=== PATIENT | female | born 1935 | race Caucasian/White ===

== ENCOUNTER 2019-10-30 13:08 | Inpatient (IN) | payer MEDICARE, SELFPAY ==
[2019-10-30 13:15] VITALS: BP 148/71; PULSE 84; RESP 18; TEMP 36.8; O2SAT 94
--- NOTE | 2019-10-30 13:30 | ECG_ITS ---
Measurements Intervals [place] Rate: 88 P: 56 IN: 188 QRS: -27 QRSD: 150 T: 43 QT: 386 QTc: 469 SINUS RHYTHM RIGHT BUNDLE BRANCH BLOCK [120+ ms QRS DURATION, UPRIGHT V1, 40+ ms S IN I/aVL/V4/V5/V6] Compared to ECG 10/30/2019 13:57:45 First degree AV block no longer present Left-axis deviation no longer present Myocardial infarct finding still present Electronically Signed On 11-01-2019 18:21:31 CDT by Millie Sanchez M.D. [id number]
--- NOTE | 2019-10-30 13:40 | CT_ITS ---
WS: [id number] CT HEAD TECHNIQUE: Noncontrast CT of the head obtained from the skullbase to the vertex. CLINICAL INFORMATION: left leg weakness COMPARISON: None. DLP: 764.[address] scans at [facility] use at least one of these dose optimization techniques: automat ed exposure control; mA and/or kV adjustment per patient size (includes targeted exams where dose is matched to clinical indication); or iterative reconstruction. FINDINGS: No evidence of intracranial hemorrhage or mass effect. Ventricular system and basal cisterns are bhagat nt. Mild small vessel changes with moderate parenchymal volume loss. Tiny chronic lacunar infarcts ri ght basal ganglia and caudate. No extra-axial fluid collections. No evidence of mass or mass effect. Normal dove-white differentiation. Paranasal sinuses and mastoid air cells are well aerated. .Normal. Visualized soft tissues. Notified Adriana Dickson MD at 10/30/2019 2:[address]/CT head wo con* [id number] IMPRESSION: 1. No evidence of intracranial hemorrhage or mass effect. 2. Mild small vessel changes. Moderate parenchymal volume loss. 3. Chronic lacunar infarcts right basal ganglia and caudate. 4. No acute intracranial findings.
[2019-10-30 13:52] LABS: Basophils # 0.1 10^3/uL (0.0-0.1); Basophils % 0.7 %; Eosinophils # 1.5 10^3/uL (0.0-0.8); Eosinophils % 11.5 %; Hematocrit 41.9 % (37.0-47.0); Hemoglobin 13.1 g/dL (11.5-15.3); Lymphocytes # 1.5 10^3/uL (0.8-4.8); Lymphocytes % 11.2 %; Mean Corpuscular HGB Conc 31.3 g/dL (30.0-36.0); Mean Corpuscular Hemoglobin 28.9 pg (28.0-34.0); Mean Corpuscular Volume 92.5 fL (81-99); Mean Platelet Volume 9.4 fL (7.4-10.4); Monocytes % 7.4 %; Neutrophils # 9.2 10^3/uL (1.8-7.7); Neutrophils % 68.9 %; Nucleated Red Blood Cells % 0 %; Platelet Count 344 10^3/cmm (130-400); Red Blood Count 4.53 10^6/uL (4.1-5.3); White Blood Count 13.4 10^3/uL (4.0-10.0)
--- NOTE | 2019-10-30 13:55 | ED_ITS ---
HPI - Weakness General: Chief complaint: Weakness Stated complaint: WEAKNESS / PANIC ATTACK Time Seen by Provider: 10/30/19 13:10 History of Present Illness: HPI Narrative: Patient is an 84 year old female presenting with difficulty walking. She reports that when she got out of bed yesterday morning she was not able to control her legs. She normal gets around without assistance but has been using a walker. She talked to her doctor yesterday and was sent to the ED at [place]. She had a CT there and she says that there wanted her to come right here for an MRI. It isn't clear why they recommended that and why she didn't come. She is still having a hard time walking and is very confused when trying to tell me the story. She is apparently normally very clear and not confused. She denies history of stroke. She is on antibiotics (nitrofuratoin) for a UTI that was diagnosed on the of this month. Complaint: generalized weakness, focal weakness and difficulty walking Onset (ago): day(s) (2) Duration: constant Location: LLE Severity: moderate Associated symptoms: Reports confusion; Denies chest pain, chills, fever(s), headache(s) or nausea Review of Systems General: Reports: 10 or more systems reviewed and unremarkable except in HPI and below Const: Denies: fever(s) or chills Card: Denies: chest pain GI: Denies: nausea Neuro: Reports: weakness in extremities, lack of coordination, difficulty walking, confusion and difficulty communicating thoughts; Denies: headache(s) [facility] ED PFSH: Medical History (Updated 10/30/19 @ 19:16 by Romi Ag MD) Anxiety disorder GERD (gastroesophageal reflux disease) HTN (hypertension) Hypothyroidism Osteoarthritis Surgical History H/O laminectomy H/O: hysterectomy History of appendectomy S/P left knee arthroscopy Family History (Updated 10/30/19 @ 18:52 by Romi Ag MD) Son Alcohol abuse Psychiatric illness Bipolar disorder Mother Cancer Social History (Updated 10/30/19 @ 18:53 by Romi Ag MD) Smoking and tobacco status: former smoker Quit status (tobacco): has quit using tobacco Former quit date comment: Remote history Alcohol intake: never Substance/Drug Use: never Household members: spouse Marital status: Current occupational status: retired Physical Exam Const: COMMON NORMALS: no acute distress, patient oriented x3, no limitations and alert GENERAL APPEARANCE: cooperative and comfortable HENMT: HEAD & SCALP: normal to inspection FACE & SINUS: normal facial exam Eye: GENERAL EYE: appearance normal, both eyes and all related structures Neck/C-Spine: COMMON NORMALS: supple, no meningeal signs and no JVD Chest: COMMONS NORMALS: normal inspection of the chest Resp: COMMON NORMALS: normal respiratory effort, No use of accessory muscles and clear to auscultation bilaterally AUSCULTATION: clear to auscultation bilaterally Cardio: COMMON NORMALS: no JVD, regular rate, regular rhythm and No murmurs present (Cardio) RATE: regular rate RHYTHM: regular rhythm GI: COMMON NORMALS: Normal to inspection, nondistended, normoactive bowel sounds present, Soft to palpation and non-tender INSPECTION: Yes normal to inspection AUSCULTATION: Yes normoactive bowel sounds PALPATION: Yes Soft to palpation Back/Pelvis: COMMON NORMALS: thoracic and lumbar spine normal to inspection Extremity: COMMON NORMALS: normal to inspection Neuro: COMMON NORMALS: patient oriented x3, moves all extremities, no focal motor deficits and no sensory deficits noted SENSORIUM/ORIENTATION: Yes alert and Yes other (having trouble organizing her thoughts) MENINGEAL SIGNS: Yes no meningeal signs CRANIAL NERVES: Yes CN normal except as noted COORDINATION/BALANCE: [id number] test normal (hesitation on the left - mild ataxia) GAIT: Yes Unable to assess gait SENSORY EXAM: Yes extremities (normal sensation) and Normal double simultaneous stimulation for sensation MOTOR EXAM: Abnormal motor strength present (3/5 strength LLE, 4/5 LUE) COORDINATION: [id number] test normal (hesitation on the left - mild ataxia) Psych: COMMON NORMALS: mental status grossly normal, cooperative and normal affect Skin: COMMON NORMALS: no rashes or lesions noted and turgor normal GENERAL SKIN EXAM: no rashes or lesions noted and turgor normal Course 2 ED course: Patient with difficulty walking, left leg weakness and some ataxia of the left upper extremity as well as slight weakness. She had an unremarkable CT head yesterday at [facility] in [place] and another here today. Labs are unremarkable other than a slightly elevated calcium and ESR. She is on antibiotics for UTI - urine is clear today with +1 ketones. She also has some confusion which is not normal for her according to those who know her. She says that she has panic attacks and felt very anxious in the ED and she was given a dose or oral ativan. She takes clonazepam at home. She is agreeable to being admitted. I don't think she should go home given her difficulty walking and unexplained confusion. Reevaluation(s): Reevaluation #1: I assisted the patient to the bathroom with the nurse and a walker. She was unsteady and her left leg was weak - she was not able to pick her foot up and was dragging it slightly, she she was able to hold her weight on it. Time: 14:49 Consultations: Consultation #1: Hospitalist, Dr. Ag who agrees to admit for PT evaluation and treatment. Vital Signs: Vital signs: Vital Signs Temperature 97.6 F 10/30/19 20:00 Pulse Rate 93 10/30/19 20:00 Respiratory Rate 18 10/30/19 20:00 Blood Pressure 133/78 10/30/19 20:00 Pulse Oximetry 98 10/30/19 20:00 MDM - Weakness Lab Data: Labs: Lab Results 10/30/19 10/30/19 10/30/19 Range/Units 13:37 13:37 13:37 WBC 13.4 H (4.0-10.0) 10^3/ uL RBC 4.53 (4.1-5.3) 10^6/u L Hgb 13.1 (11.5-15.3) g/dL Hct 41.9 (37.0-47.0) % MCV 92.5 (81-99) fL MCH 28.9 (28.0-34.0) pg MCHC 31.3 (30.0-36.0) g/dL RDW 12.0 L (12.1-15.1) % Plt Count 344 (130-400) 10^3/c mm MPV 9.4 (7.4-10.4) fL Neut % (Auto) 68.9 % Lymph % (Auto) 11.2 % Weld % (Auto) 7.4 % Eos % (Auto) 11.5 % Baso % (Auto) 0.7 % Neut # (Auto) 9.2 H (1.8-7.7) 10^3/u L Lymph # (Auto) 1.5 (0.8-4.8) 10^3/u L Weld # (Auto) 1.0 H (0.2-0.9) 10^3/u L Eos # (Auto) 1.5 H (0.0-0.8) 10^3/u L Baso # (Auto) 0.1 (0.0-0.1) 10^3/u L Nucleated RBC % (a uto) 0 % Nucleated RBCs # 0.0 /100WBC ESR 45 H (0-15) mm/hr Sodium 142 (136-145) mmol/L Potassium 3.9 (3.5-5.1) mmol/L Chloride 105 (98-107) mmol/L Carbon Dioxide 23 (22-29) mmol/L Anion Gap 17.9 (5-19) BUN 10 (8-23) mg/dL Creatinine 0.7 (0.5-0.9) mg/dL Glucose 118 H (65-115) mg/dL Calculated Osmolal ity 291 (285-295) mOsm/k g Calcium 11.2 H (8.5-10.5) mg/dL Total Bilirubin 0.3 (0.15-1.2) mg/dL AST 20 (0-32) U/L ALT 13 (0-33) U/L Alkaline Phosphata se 86 (35-105) IU/L Troponin T Baselin e (0-10) ng/mL Total Protein 7.3 (6.6-8.7) g/dL Albumin 4.1 (3.5-5.2) g/dL Globulin 3.2 (1.3-4.6) g/dL Urine Color (Yellow) Urine Appearance (CLEAR) Urine pH (5-7) Ur Specific Gravit y (1.005-1.030) Urine Protein (Negative) Urine Glucose (UA) (Normal) Urine Ketones (Negative) Urine Blood (Negative) Urine Nitrate (Negative) Urine Bilirubin (NEGATIVE) Urine Urobilinogen (Negative) mg/dL Ur Leukocyte Lilly ase (Negative) 10/30/19 10/30/19 Range/Units 13:37 13:51 WBC (4.0-10.0) 10^3/ uL RBC (4.1-5.3) 10^6/u L Hgb (11.5-15.3) g/dL Hct (37.0-47.0) % MCV (81-99) fL MCH (28.0-34.0) pg MCHC (30.0-36.0) g/dL RDW (12.1-15.1) % Plt Count (130-400) 10^3/c mm MPV (7.4-10.4) fL Neut % (Auto) % Lymph % (Auto) % Weld % (Auto) % Eos % (Auto) % Baso % (Auto) % Neut # (Auto) (1.8-7.7) 10^3/u L Lymph # (Auto) (0.8-4.8) 10^3/u L Weld # (Auto) (0.2-0.9) 10^3/u L Eos # (Auto) (0.0-0.8) 10^3/u L Baso # (Auto) (0.0-0.1) 10^3/u L Nucleated RBC % (a uto) % Nucleated RBCs # /100WBC ESR (0-15) mm/hr Sodium (136-145) mmol/L Potassium (3.5-5.1) mmol/L Chloride (98-107) mmol/L Carbon Dioxide (22-29) mmol/L Anion Gap (5-19) BUN (8-23) mg/dL Creatinine (0.5-0.9) mg/dL Glucose (65-115) mg/dL Calculated Osmolal ity (285-295) mOsm/k g Calcium (8.5-10.5) mg/dL Total Bilirubin (0.15-1.2) mg/dL AST (0-32) U/L ALT (0-33) U/L Alkaline Phosphata se (35-105) IU/L Troponin T Baselin e 18 H (0-10) ng/mL Total Protein (6.6-8.7) g/dL Albumin (3.5-5.2) g/dL Globulin (1.3-4.6) g/dL Urine Color Yellow (Yellow) Urine Appearance Clear (CLEAR) Urine pH 7 (5-7) Ur Specific Gravit y 1.010 (1.005-1.030) Urine Protein Neg (Negative) Urine Glucose (UA) Norm (Normal) Urine Ketones 1+ H (Negative) Urine Blood Neg (Negative) Urine Nitrate Negative (Negative) Urine Bilirubin Neg (NEGATIVE) Urine Urobilinogen Norm (Negative) mg/dL Ur Leukocyte Lilly ase Negative (Negative) EKG Data^: EKG 1: EKG interpretation date: 10/30/19 EKG interpretation time: 14:09 Interpretation: Sinus iwth 1 degree av block. RBBB. LAD. no acute ischemic changes. Discharge Plan Discharge Admit Provider: Romi Ag Discharge Date/Time: 10/30/19 16:15 Coding Level of Care Code ED Department [employer] Fwd Exam Comprehensive
--- NOTE | 2019-10-30 13:57 | PC.NURSE ---
EKG done at 1355 and shown to ER doctor
--- NOTE | 2019-10-30 13:58 | PC.NURSE ---
Nurse did an in and out cath for UA
--- NOTE | 2019-10-30 14:03 | PC.NURSE ---
patient to ct
[2019-10-30 14:11] LABS: Alanine Aminotransferase 13 U/L (0-33); Albumin Level 4.1 g/dL (3.5-5.2); Alkaline Phosphatase 86 IU/L (35-105); Anion Gap 17.9 (5-19); Aspartate Amino Transferase 20 U/L (0-32); Blood Urea Nitrogen 10 mg/dL (8-23); Calcium 11.2 mg/dL (8.5-10.5); Carbon Dioxide 23 mmol/L (22-29); Chloride 105 mmol/L (98-107); Globulin 3.2 g/dL (1.3-4.6); Glucose 118 mg/dL (65-115); Osmolality Calculated 291 mOsm/kg (285-295); Potassium 3.9 mmol/L (3.5-5.1); Sodium 142 mmol/L (136-145); Total Bilirubin 0.3 mg/dL (0.15-1.2); Total Protein 7.3 g/dL (6.6-8.7)
[2019-10-30 14:13] LABS: Troponin(5th) Baseline 18 ng/mL (0-10)
[2019-10-30] MEDS: LORazepam 1 mg Tablet PO (14:23)
[2019-10-30 14:29] LABS: Add Urine Microscopic? NO
[2019-10-30 14:39] LABS: Urine Appearance Clear (CLEAR); Urine Color Yellow (Yellow); pH Urine 7 (5-7)
[2019-10-30 14:40] LABS: Bilirubin Urine Neg (NEGATIVE); Blood Urine Neg (Negative); Glucose Urine UA Norm (Normal); Ketones Urine 1+ (Negative); Leukocyte Esterase Urine Negative (Negative); Nitrate Urine Negative (Negative); Protein Urine Neg (Negative); Urobilinogen Urine Norm (Negative)
--- NOTE | 2019-10-30 14:55 | PC.NURSE ---
patient ambulated with walker to restroom, emd assisted
[2019-10-30 14:56] LABS: Erythrocyte Sedimentation Rate 45 mm/hr (0-15)
--- NOTE | 2019-10-30 15:30 | ECG_ITS ---
Measurements Intervals [place] Rate: 94 P: 50 PA: 196 QRS: -4 QRSD: 133 T: 37 QT: 378 QTc: 473 SINUS RHYTHM POSSIBLE LEFT ATRIAL ENLARGEMENT RIGHT BUNDLE BRANCH BLOCK INFERIOR MYOCARDIAL INFARCTION,OF INDETERMINATE AGE Compared to ECG 10/30/2019 13:57:45 First degree AV block no longer present Left-axis deviation no longer present Myocardial infarct finding still present Electronically Signed On 11-01-2019 18:45:53 CDT by Millie Sanchez M.D. [id number]
--- NOTE | 2019-10-30 16:01 | PC.NURSE ---
Sat up in bed, anxious. Nurse was at bedside. EKG done at 1555 and shown to ER doctor.
[2019-10-30 16:04] LABS: Creatine Phosphokinase 18 U/L (26-192); Troponin 5 2HR 14.63 ng/mL (0-10)
[2019-10-30 16:07] VITALS: BP 161/71; PULSE 105; RESP 18; O2SAT 95
[2019-10-30 16:30] VITALS: BP 138/79; PULSE 91; RESP 18; TEMP 37; O2SAT 96
[2019-10-30 16:33] LABS: Troponin 5 2HR Delta -3.37 ABS# (0-10)
--- NOTE | 2019-10-30 18:42 | CTR_ITS ---
PROCEDURE INFORMATION: Exam: CT Angiography Head With Contrast Exam date and time: 10/30/2019 8:25 PM Age: 84 years old Clinical indication: Cognitive deficit; Altered mental status; Additional info: CVA workup, assess posterior circulation TECHNIQUE: Imaging protocol: Computed tomography angiography of the head with intravenous contrast. 3D rendering: MIP and/or 3D reconstructed images were created by the technologist. Radiation optimization: All CT scans at this facility use at least one of these dose optimization techniques: automated exposure control; mA and/or kV adjustment per patient size (includes targeted exams where dose is matched to clinical indication); or iterative reconstruction. Contrast material: OMNI 350; Contrast volume: 95 ml; Contrast route: IV; COMPARISON: CT head wo con* [id number] 2019-10-30 14:01 FINDINGS: Anterior cerebral arteries: No occlusion or significant stenosis. No aneurysm. Right internal carotid artery: Mild cavernous and supraclinoid right internal carotid artery atherosclerotic plaque and stenosis. Right middle cerebral artery: No occlusion or significant stenosis. No aneurysm. Right posterior cerebral artery: No occlusion or significant stenosis. No aneurysm. Right vertebral artery: No occlusion or significant stenosis. No aneurysm. Left internal carotid artery: Mild cavernous and supraclinoid left internal carotid artery atherosclerotic plaque and stenosis. Left communicatingc ICA segment aneurysm or infundibulum measuring 2-3 mm on series 4, image 178. Left middle cerebral artery: No occlusion or significant stenosis. No aneurysm. Left posterior cerebral artery: Nymf-lu-wjzlzgnt left EQUIPMENT TECH stenosis. Left vertebral artery: No occlusion or significant stenosis. No aneurysm. Basilar artery: No occlusion or significant stenosis. No aneurysm. Dural sinuses/cerebral veins: The visualized deep and superficial dural venous sinuses and cortical veins are patent. The visualized deep and superficial dural venous sinuses and cortical veins are patent. Other vasculature: Small anterior communicating artery. Total DLP: 1394.21 mGy-cm IMPRESSION: 1. No acute abnormality. 2. 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 PROCEDURE INFORMATION: Exam: CT Angiography Neck With Contrast Exam date and time: 10/30/2019 8:25 PM Age: 84 years old Clinical indication: Cognitive deficit; Altered mental status; Additional info: CVA workup, assess posterior circulation TECHNIQUE: Imaging protocol: Computed tomography angiography of the neck with intravenous contrast. 3D rendering: MIP and/or 3D reconstructed images were created by the technologist. Radiation optimization: All CT scans at this facility use at least one of these dose optimization techniques: automated exposure control; mA and/or kV adjustment per patient size (includes targeted exams where dose is matched to clinical indication); or iterative reconstruction. Contrast material: OMNI 350; Contrast volume: 95 ml; Contrast route: IV; COMPARISON: CT head wo con* [id number] 2019-10-30 14:01 RADIATION DOSE METRICS: Total DLP: 1394.21 mGy-cm FINDINGS: Right common carotid artery: Mild atherosclerotic plaque in the predominately distal right common carotid artery and the bifurcation. Right internal carotid artery: No stenosis of the extracranial segment. No dissection or occlusion. Right external carotid artery: No occlusion or stenosis of the origin. Right vertebral artery: No stenosis. No dissection or occlusion. Left common carotid artery: Mild atherosclerotic plaque in the predominately distal left common carotid artery and the bifurcation. Left internal carotid artery: No stenosis of the extracranial segment. No dissection or occlusion. Left external carotid artery: No occlusion or stenosis of the origin. Left vertebral artery: No stenosis. No dissection or occlusion. Bones/joints: No acute fracture. Soft tissues: Normal. No significant soft tissue swelling. CT/CT angio headneck* [id number] IMPRESSION: No acute abnormality. REFERENCES: NASCET CRITERIA. The degree of internal carotid artery stenosis is based on NASCET criteria. Normal is no stenosis. Mild is less than 50% stenosis. Moderate is 50-69% stenosis. Severe is 70% to 99% stenosis. Total occlusion is no detectable patent lumen. Radiation Dose CTDIVOL = (mGy): DLP = 1394.21~1394.21 (mGy-cm)
--- NOTE | 2019-10-30 18:47 | P.HP_ITS ---
Providers/Chief Complaint Admitting Physician: Romi Ag MD Primary Care Provider: Rebekah Nix DO Chief Complaint: LEFT SIDED WEAKNESS History of Present Illness Mel Ferrara is a 84 year old female with PMHx of HTN, GERD, OA, Hypothyroidism, Anxiety; presents via ambulance from home for evaluation of ongoing and progressive bilateral lower extremity weakness, difficulty with ambulation for the past several days. Patient had been evaluated at [facility] ER on at least 2-3 separate occasions for these symptoms. By her report on her first ER visit she had minimal work-up and then was discharged home. As her symptoms progressed and she had a fall while returning to have bedroom from the bathroom with resulting right-sided chest wall pain she returned to the ER and was diagnosed with rib fractures. She continues to have difficulty with ambulation and worsening left lower extremity weakness with noted difficulty with word finding and intermittently slurred speech. She returned to the ER yesterday and had extensive work-up including CT head, CBC, chemistry, chest x- ray with records reviewed and in paper chart. CT head was noted to be unremarka ble, chest x-ray was reported as noted prominence in bronchovascular markings suggestive of possible fluid overload, CBC was unremarkable, she had mild creatinine elevation on her chemistry panel, BNP elevation at 771. Further neurological evaluation was recommended specifically MRI which patient opted to have as an outpatient is scheduled for tomorrow. However upon awakening today she felt much worse and her called for an ambulance to bring her to the hospital for evaluation. She states that prior to the onset of her symptoms, she had a bout of constipation which has now resolved following initiation of bowel regimen. She has underlying anxiety/depression with what she describes as panic attacks and has noticed that these have increased in frequency over the past several days. She is on clonazepam venlafaxine and quetiapine as needed. She is encountered on her arrival to the medical surgical floor. She is an appropriate historian but has progressive difficulty with word finding during my history taking , intermittent slurring of her speech, and on gait assessment has notable ataxia and seems to almost be dragging her left leg when ambulating. She makes mention of the fact that she is having difficulty inserting her dentures which she has had for about 10 years and has not had prior difficulty with this; she denies having had any episodes of difficulty swallowing, choking episodes, drooling and no prior reported facial droop. She denies any other falls as she has been able to hold onto furniture while walking around the house and over the past day or so has been using a walker; she ambulates independently at baseline. She denies any episodes of disorientation or confusion but is aware of her word finding difficulty and feels like her tongue gets thick when speaking. Work-up in the ER today shows leukocytosis with a white count of 13.4, normal hemoglobin at 13.1, normal chemistry and renal function, blood sugar of 118, calcium of 11.2, ESR of 45, normal LFTs, CT head showing chronic lacunar infarcts in the right basal ganglia and caudate with no noted acute findings. She is hemodynamically stable and on room air. Clinically I am highly suspicious for CVA particularly involving posterior circulation so she is being admitted for further work-up. Discussed additional imaging including CTA head and neck and MRI which patient is agreeable to as well as need for therapy evaluations. Review of Systems Const: Denies: fever(s), chills or change in appetite Eyes: Denies: change in vision or blurry vision ENMT: Reports: dry mouth and other (Difficulty wearing dentures) Card: Reports: lightheadedness; Denies: chest pain, swelling of feet/ankles or syncope Resp: Denies: dyspnea, productive cough or non-productive cough GI: Reports: nausea and constipation; Denies: abdominal pain, vomiting, hematemesis or hematochezia : Denies: difficulty voiding, dysuria or urinary frequency Musc: Denies: back pain Skin/Breast: Denies: rash Neuro: Reports: weakness in extremities (Lower extremities bilaterally), difficulty walking, Slurred speech present and difficulty communicating thoughts (Difficulty particularly with word finding); Denies: headache(s), numbness in extremities, dizziness or confusion Psych: Reports: panic attacks; Denies: anxiety Medications/Allergies Home Medications Medication Instructions Recorded Confirmed Last Taken Type clonazepam 1 mg PO BID 10/30/19 10/30/19 10/30/19 History cranberry 450 mg PO DAILY 10/30/19 10/30/19 Unknown History levothyroxine 112 mcg PO DAILY 10/30/19 10/30/19 10/30/19 History naproxen 500 mg PO BID PRN 10/30/19 10/30/19 Unknown History nitrofurantoin monohyd/m-cryst 100 mg PO BID 10/30/19 10/30/19 Unknown History venlafaxine 75 mg PO TID 10/30/19 10/30/19 10/28/19 History Allergies Allergy/AdvReac Type Severity Reaction Status Date / Time Penicillins Allergy ALGY-Rash Verified 10/30/19 13:15 Sulfa (Sulfonamide Allergy ALGY-Hives Verified 10/30/19 13:14 Antibiotics) PFSH Acute PFSH: Medical History Anxiety disorder GERD (gastroesophageal reflux disease) Hypothyroidism Osteoarthritis Surgical History H/O laminectomy H/O: hysterectomy History of appendectomy S/P left knee arthroscopy Family History (Updated 10/30/19 @ 18:52 by Romi Ag MD) Son Alcohol abuse Psychiatric illness Bipolar disorder Mother Cancer Social History (Updated 10/30/19 @ 18:53 by Romi Ag MD) Smoking and tobacco status: former smoker Quit status (tobacco): has quit using tobacco Former quit date comment: Remote history Alcohol intake: never Substance/Drug Use: never Household members: spouse Marital status: Current occupational status: retired Vitals/I&O/Wt Last Vital Signs Temp 98.6 F 10/30/19 16:30 Pulse 91 10/30/19 16:30 Resp 18 10/30/19 16:30 BP 138/79 10/30/19 16:30 Pulse Ox 96 10/30/19 16:30 Weight last 48 hrs Weight 79.379 kg Physical Exam Const: COMMON NORMALS: no acute distress, patient oriented x3 and alert GENERAL APPEARANCE: cooperative and comfortable; not in distress and not ill appearing NUTRITIONAL APPEARANCE: obese centrally obese ORIENTATION/CONSCIOUSNESS: Yes awake OTHER: -Appears appropriate for age HENMT: COMMON NORMALS: normocephalic, atraumatic and hearing grossly normal bilaterally HEAD & SCALP: normocephalic and atraumatic MOUTH: moist mucous membranes abnormal Details: parched TEETH & GINGIVA: Yes dentures Eye: COMMON NORMALS: Equal, round and reactive pupils present, EOMs intact bilaterally and conjunctivae normal CONJUNCTIVA: Yes conjunctivae normal PUPIL: Yes Equal, round and reactive pupils present Neck/C-Spine: COMMON NORMALS: full ROM GENERAL: Yes normal visual inspection and Yes trachea midline Chest: CHEST: Yes Symmetrical chest wall rise Resp: COMMON NORMALS: normal respiratory effort, No retractions, No use of accessory muscles and clear to auscultation bilaterally EFFORT & INSPECTION: Yes able to speak in complete sentences, Yes symmetric chest movement and No tachypneic AUSCULTATION: clear to auscultation bilaterally OTHER: -on RA Cardio: COMMON NORMALS: regular rate, regular rhythm, S1 normal heart sound present, S2 normal heart sound present and No murmurs present (Cardio) RATE: regular rate RHYTHM: regular rhythm HEART SOUNDS: S1 normal heart sound present and S2 normal heart sound present GI: COMMON NORMALS: Normal to inspection, nondistended, normoactive bowel sounds present, Soft to palpation and non-tender INSPECTION: Yes central obesity PALPATION: Yes Soft to palpation Back/Pelvis: COMMON NORMALS: thoracic and lumbar spine normal to inspection Extremity: COMMON NORMALS: normal to inspection, full ROM, no clubbing, cyanosis or edema and no pedal edema Neuro: COMMON NORMALS: patient oriented x3, moves all extremities, no focal motor deficits and no sensory deficits noted COORDINATION/BALANCE: sways with eyes open SPEECH: abnormal speech Details: slurred (slightly ( thick tongue)) and other (has particular difficulty with word finding), expressive aphasia and Other neuro speech findings GAIT: Yes Ataxic gait present (slow, halting) SENSORY EXAM: Yes extremities (gross sensation intact in all extremities) M OTOR EXAM: 5/5 motor strength present throughout (in bilateral UEs), Pronator motor function not present, no tremor noted and Abnormal motor strength present (LLE) PUPIL EXAM: Normal pupillary reactivity/response: bilateral Psych: COMMON NORMALS: mental status grossly normal, Normal thought process present, cooperative, normal affect and speech normal SPEECH: Yes normal speech THOUGHT PROCESS: Normal thought process present Skin: COMMON NORMALS: no rashes or lesions noted, no jaundice, no petechiae and no mottling GENERAL SKIN EXAM: no rashes or lesions noted Data : 10/30/19 13:37 10/30/19 13:37 A&P Assessment and plan (1) Lower extremity weakness: -Reports bilateral lower extremity weakness, significantly worse on the left with associated progressive difficulty with ambulation -Has been using a walker or holding onto furniture for the past several days -Associated ataxia, lightheadedness, progressive difficulty with word finding, slurred speech and expressive aphasia -Highly suspicious for CVA -Has had several recent CT head including one done today with noted chronic lacunar infarcts involving right basal ganglia and caudate, mild small vessel changes but no acute intracranial findings -In light of continued symptoms and suspicion for CVA will further evaluate with MRI head without contrast and CTA head and neck to evaluate posterior circulation -PT/OT/ST evaluations -Telemetry monitoring -Fall precautions, assistance with all out of bed activity -Close monitoring of vital signs -Risk stratification with TSH, A1c, lipid panel -Monitor vital signs -Gentle IVF hydration in light of noted ketones in urine, hypercalcemia which is likely due to dehydration; repeat labs in AM -CPK within normal limits, noted ESR elevation (45) (unknown significance); denies preceding trauma though did have a mechanical fall several days ago with reported R sided rib fracture(s) -order Echo as part of CVA workup and due to noted BNP elevation (771) and mention of element of fluid overload (workup done at [facility]) Status: Acute Qualifiers: Laterality: bilateral Qualified Code(s): R29.898 - Other symptoms and signs involving the musculoskeletal system (2) HTN (hypertension): -monitor vital signs -resume HCTZ Status: Chronic Qualifiers: Hypertension type: essential hypertension Qualified Code(s): I10 - Essential (primary) hypertension (3) UTI (urinary tract infection): -has been on antibiotic treatment with macrobid for UTI (day 02/19) -UA today not indicative of infection Status: Acute Qualifiers: Urinary tract infection type: acute cystitis Hematuria presence: without hematuria Qualified Code(s): N30.00 - Acute cystitis without hematuria (4) Osteoarthritis: Status: Chronic Qualifiers: Osteoarthritis location: unspecified site Osteoarthritis type: primary Qualified Code(s): M19.91 - Primary osteoarthritis, unspecified site (5) Anxiety disorder: -anxiolytics PRN Status: Chronic Qualifiers: Anxiety disorder type: panic disorder without agoraphobia Qualified Code(s): F41.0 - Panic disorder [episodic paroxysmal anxiety] (6) Hypothyroidism: -check TSH -resume levothyroxine Status: Chronic Qualifiers: Hypothyroidism type: unspecified Qualified Code(s): E03.9 - Hypothyroidism, unspecified (7) GERD (gastroesophageal reflux disease): -resume PPI Status: Chronic Qualifiers: Esophagitis presence: esophagitis presence not specified Qualified Code (s): K21.9 - Gastro-esophageal reflux disease without esophagitis Additional A&P Information -Advanced age -review of [facility] records includes hx of DM type II, hyperlipidemia which patient denies and is not on active treatment for; accucheks -GI ppx with PPI -DVT ppx with Lovenox -Dispo: home, potentially with HH -Code status: FULL code Attestations Medical Necessity Statement*: Mel Ferrara's hospital stay will be less than 2 midnights for management and further workup of noted bilateral LE weakness with associated ataxia, aphasia and concern for CVA. Time Spent in Patient Care: Greater than 35 minutes (>than 50% of time spent in counselling and/or direct pt care on unit) . Coding Level of Care Code Acute Supervisor Records Change for Chg Fwd Diagnoses Lower extremity weakness R29.898 Laterality: bilateral HTN (hypertension) I10 Hypertension type: essential hypertension UTI (urinary tract infection) N30.00 Urinary tract infection type: acute cystitis Hematuria presence: without hematuria Osteoarthritis M19.91 Osteoarthritis location: unspecified site Osteoarthritis type: primary Anxiety disorder F41.0 Anxiety disorder type: panic disorder without agoraphobia Hypothyroidism E03.9 Hypothyroidism type: unspecified GERD (gastroesophageal reflux disease) K21.9 Esophagitis presence: esophagitis presence not specified
--- NOTE | 2019-10-30 19:30 | ECG_ITS ---
Measurements Intervals [place] Rate: 87 P: 60 NE: 219 QRS: -32 QRSD: 124 T: 44 QT: 379 QTc: 458 SINUS RHYTHM WITH FIRST DEGREE AV BLOCK POSSIBLE LEFT ATRIAL ENLARGEMENT [-0.1mV P WAVE IN V1/V2] LEFT AXIS DEVIATION [QRS AXIS < -30] RIGHT BUNDLE BRANCH BLOCK [120+ ms QRS DURATION, UPRIGHT V1, 40+ ms S IN I/aVL/V4/V5/V6] POSSIBLE ANTERIOR MYOCARDIAL INFARCTION , PROBABLY OLD [30 ms Q WAVE IN V3/V4, OR R < 0.2 mV IN V4] No previous ECG available for comparison Electronically Signed On 10-30-2019 15:46:21 CDT by Villa Causey M.D. [email or web address]
[2019-10-30 20:00] VITALS: BP 133/78; PULSE 93; RESP 18; TEMP 36.4; O2SAT 98
--- NOTE | 2019-10-30 20:00 | PC.NURSE ---
Report received and care assumed of patient. Upon assessment patient states that she is having difficulty chewing and swallowing her hamburger from dinner. States that she can tolerate liquids without difficulty. Physician made aware, physician to enter new orders regarding diet and swallowing evaluation. Will continue to monitor.
[2019-10-30 20:28] LABS: Troponin 5 6HR 14.67 ng/mL (0-10)
[2019-10-30 20:32] LABS: Troponin 5 6HR Delta -3.33 ng/L (0-12)
[2019-10-30] MEDS: LORazepam 0.5 mg Tablet PO (21:02)
[2019-10-30 21:08] LABS: Glucose Point of Care 288 mg/dL (70-110)
[2019-10-30] MEDS: iohexol 350 mg/mL 100 mL Btl IV (21:13)
[2019-10-30] MEDS: nitrofurantoin SR (BID) 100 mg Capsule PO (21:30)
[2019-10-30] MEDS: sodium chloride 0.45% 1,000 ML 75 ML IV ×2 (21:30→21:38)
[2019-10-30] MEDS: enoxaparin 40 mg/0.4 mL Syringe SUBCUT (21:30)
[2019-10-30 23:20] VITALS: BP 168/90; PULSE 89; RESP 18; TEMP 36.7; O2SAT 96
[2019-10-31 04:00] VITALS: BP 136/74; PULSE 94; RESP 18; TEMP 36.6; O2SAT 95
[2019-10-31 05:33] LABS: Basophils # 0.1 10^3/uL (0.0-0.1); Basophils % 0.6 %; Eosinophils # 1.5 10^3/uL (0.0-0.8); Eosinophils % 17.2 %; Hematocrit 36.8 % (37.0-47.0); Hemoglobin 11.5 g/dL (11.5-15.3); Lymphocytes # 2.4 10^3/uL (0.8-4.8); Lymphocytes % 27.5 %; Mean Corpuscular HGB Conc 31.3 g/dL (30.0-36.0); Mean Corpuscular Hemoglobin 28.4 pg (28.0-34.0); Mean Corpuscular Volume 90.9 fL (81-99); Mean Platelet Volume 9.3 fL (7.4-10.4); Monocytes # 0.9 10^3/uL (0.2-0.9); Monocytes % 10.5 %; Neutrophils # 3.9 10^3/uL (1.8-7.7); Nucleated Red Blood Cells % 0 %; Platelet Count 289 10^3/cmm (130-400); Red Blood Count 4.05 10^6/uL (4.1-5.3); White Blood Count 8.8 10^3/uL (4.0-10.0)
[2019-10-31 05:50] LABS: Anion Gap 16.3 (5-19); Blood Urea Nitrogen 6 mg/dL (8-23); Calcium 10.4 mg/dL (8.5-10.5); Carbon Dioxide 23 mmol/L (22-29); Chloride 104 mmol/L (98-107); Glucose 89 mg/dL (65-115); Osmolality Calculated 285 mOsm/kg (285-295); Potassium 3.3 mmol/L (3.5-5.1); Sodium 140 mmol/L (136-145)
[2019-10-31 05:52] LABS: Chol HDL Ratio 3.54 mg/dL (0.0-4.40); Cholesterol 124 mg/dL (0-200); HDL Cholesterol 35 mg/dL (60-100); LDL Cholesterol Calculated 52 mg/dL (50-129); LDL HDL Ratio 1.49 RATIO (0.00-3.22); Thyroid Stimulating Hormone 0.11 uIU/mL (0.27-4.20); Triglycerides 187 mg/dL (0-150)
[2019-10-31 05:55] LABS: Estmated Average Glucose 143; Hemoglobin A1C 6.6 % (4.0-6.0)
[2019-10-31 06:39] LABS: Glucose Point of Care 100 mg/dL (70-110)
[2019-10-31 07:59] VITALS: BP 132/82; PULSE 102; RESP 20; TEMP 36.8; O2SAT 97
[2019-10-31] MEDS: LORazepam 0.5 mg Tablet PO ×2 (09:02→21:54)
[2019-10-31] MEDS: nitrofurantoin SR (BID) 100 mg Capsule PO ×2 (09:02→17:30)
[2019-10-31] MEDS: hydroCHLOROthiazide 25 mg Tablet PO (09:03)
[2019-10-31] MEDS: pantoprazole DR 40 mg Tablet PO (09:03)
[2019-10-31] MEDS: levothyroxine 125 mcg Tablet PO (09:50)
[2019-10-31 10:58] LABS: Glucose Point of Care 107 mg/dL (70-110)
[2019-10-31 11:20] VITALS: BP 172/80; PULSE 102; RESP 18; TEMP 37.1; O2SAT 96
[2019-10-31] MEDS: LORazepam 2 mg/mL INJ 1 mL 1 MG IVP (11:49)
--- NOTE | 2019-10-31 11:49 | PC.CHAP ---
Pastoral Care Encounter/Spiritual Assessment Type of Contact [] Declined installations inspector visit [] Patient/Family/Request visit [] Outpatient visit [] Follow-up visit [] Physician referral [] Code/Alert [x] Routine visit [] Staff referral [] Actively dying [] Patient sleeping [] Family support [] [] Out of room [] Palliative care [] [] Receiving care in room [] Pre-surgical visit [] Trauma [] Long length of stay [] ICU visit [] Other: Relational/Emotional Strength [x] Patient feels connected with others/family/visitors/staff [] Distress [] Loneliness/isolation [] Abandonment Spirituality of Patient [x] Person of Janis [x] Attends Druze of their Janis [x] Believes in Prayer [x] Reads Bible or Sabianist materials [] There are Spiritual issues to be addressed Shipyard Supervisor Interventions [x] Prayer [x] Active listening [x] Non-anxious presence [x] Spiritual/emotional support [] Crisis/trauma care [] Spiritual counseling [] Bereavement support [] Provided bereavement packet [] Provided Bible/devotional materials [] Provided toy/stuffed animal, coloring book to patient or family member [] Provided Communion [] Anointing/[place] [] Salvation [x] Completed spiritual assessment [] Other: Impact on Illness or Injury [] Angry [] Fearful [] Anxious [] Often cries [] Exhaustion [] Unable to work [] Unable to attend moravian [] Unable to walk/stand [] Unable to read [] Unable to drive [] Unable to eat/drink [] Unable to sleep [] Unable to be with family [] Patient intubated [x] Other: n/a Summary Time spent with patient 5 minutes
--- NOTE | 2019-10-31 12:00 | MR_ITS ---
WS: [id number] MRI HEAD WITHOUT CONTRAST TECHNIQUE: Sagittal T1, T2 axial, T2 axial FLAIR, axial and coronal T1 images, axial susceptibility w eighted imaging, axial diffusion weighted images, and coronal T2 images were obtained. CLINICAL INFORMATION: aphasia, ataxia, suspicion for CVA COMPARISON: CT October 30, 2019 FINDINGS: No evidence of restricted diffusion to suggest acute ischemia. Ventricular system and basal cisterns are patent. Moderate small vessel changes. Moderate parenchymal volume loss. Small vessel changes in the brnadie. Normal posterior fossa. Normal vascular flow voids at the skull base. No extra-axial fluid collections. No evidence of mass or mass effect. No hemosiderin on the susceptib ility weighted images. Incidental dystrophic calcification along the left middle cranial fossa. Moderate symmetric atrophy involving the temporal lobes and hippocampal formations. Small amount of f luid right maxillary sinus. Normal optic chiasm and pituitary infundibulum. Mild mucosal thickening m astoid air cells. MR/MR head wo con* [id number] IMPRESSION: 1. No evidence restricted diffusion to suggest acute ischemia. Ventricular sys tem and basal cisterns are patent. 2. Moderate small vessel changes. Moderate parenchymal volume loss. 3. Small vessel changes in the brandie. 4. Moderate symmetric atrophy involving the temporal lobes and hippocampal for mations. 5. Small amount of fluid in the right maxillary sinus.
[2019-10-31] MEDS: LORazepam 2 mg/mL INJ 1 mL IVP (14:10)
--- NOTE | 2019-10-31 14:18 | P.PN_ITS ---
Subjective Subjective: Interval history: Has been quite anxious and is requesting additional anxiolytics. Had CTA done last night, pending MRI this afternoon. Has been evaluated by PT and OT. Seems to be more calm now, resting comfortably in bed, continues to have difficulty with word finding, noted difficulty with swallowing solids in particular, seems to do okay with thin liquids and was able to swallow her medications without difficulty, ST recommends clear liquid diet for now. Medications: Reviewed: Yes Medication Review Details: Active Medications Generic Name Dose Route Start Last Admin Trade Name Freq PRN Reason Stop Dose Admin Acetaminophen 650 mg 10/30/19 18:34 Tylenol PO Q6H PRN Mild/Mod Pain Or Temp >/= 101 Bisacodyl 10 mg 10/30/19 18:34 Dulcolax PO DAILY PRN CONSTIPATION Enoxaparin Sodium 40 mg 10/30/19 19:00 10/30/19 21:30 Lovenox SUBCUT 40 mg Q24H ASHLEY Administration Hydrochlorothiazid e 25 mg 10/31/19 09:00 10/31/19 09:03 Hctz PO 25 mg DAILY ASHLEY Administration Sodium Chloride 1,000 mls @ 75 ml s/hr 10/30/19 18:45 10/30/19 21:38 Sodium Chloride 0.45% IV 75 mls/hr .[id number] ASHLEY Administration Lanolin 1 applic 10/31/19 01:20 Lanolin Oint TOPICAL PRN PRN DRYNESS Levothyroxine Sodi um 125 mcg 10/31/19 09:30 10/31/19 09:50 Synthroid PO 125 mcg DAILY ASHLEY Administration Lorazepam 0.5 mg 10/30/19 18:39 10/31/19 09:02 Ativan PO 0.5 mg TID PRN Administration ANXIETY Nitrofurantoin Mac rocrystals 100 mg 10/30/19 19:00 10/31/19 09:02 Macrobid PO 100 mg BID ASHLEY Administration Ondansetron HCl 4 mg 10/30/19 18:34 Zofran IVP Q6H PRN vomiting, or N/V if npo Pantoprazole Sodiu m 40 mg 10/31/19 09:00 10/31/19 09:03 Protonix PO 40 mg DAILY ASHLEY Administration Penicillins Allergy (Verified 10/30/19 13:15) ALGY-Rash Sulfa (Sulfonamide Antibiotics) Allergy (Verified 10/30/19 13:14) ALGY-Hives Vitals/I&O/Wt Last Vital Signs Temp 98.7 F 10/31/19 11:20 Pulse 102 H 10/31/19 11:20 Resp 18 10/31/19 11:20 BP 172/80 10/31/19 11:20 Pulse Ox 96 10/31/19 11:20 10/30/19 10/31/19 10/31/19 22:59 06:59 14:59 Intake Total 240 / 240 Output Total 350 / 350 600 / 950 Balance -340 / -340 -600 / -940 240 / 240 Weight last 48 hrs Weight 65.045 kg Weight 79.379 kg Physical Exam Const: COMMON NORMALS: no acute distress, patient oriented x3 and alert GENERAL APPEARANCE: cooperative and comfortable; not in distress and not ill appearing NUTRITIONAL APPEARANCE: obese centrally obese ORIENTATION/CONSCIOUSNESS: Yes awake OTHER: -Appears appropriate for age HENMT: COMMON NORMALS: normocephalic, atraumatic and hearing grossly normal bilaterally HEAD & SCALP: normocephalic and atraumatic MOUTH: moist mucous membranes abnormal Details: parched TEETH & GINGIVA: Yes dentures Eye: COMMON NORMALS: Equal, round and reactive pupils present, EOMs intact bilaterally and conjunctivae normal CONJUNCTIVA: Yes conjunctivae normal PUPIL: Yes Equal, round and reactive pupils present Neck/C-Spine: COMMON NORMALS: full ROM GENERAL: Yes normal visual inspection and Yes trachea midline Chest: CHEST: Yes Symmetrical chest wall rise Resp: COMMON NORMALS: normal respiratory effort, No retractions, No use of accessory muscles and clear to auscultation bilaterally EFFORT & INSPECTION: Yes able to speak in complete sentences, Yes symmetric chest movement and No tachypneic AUSCULTATION: clear to auscultation bilaterally OTHER: -on RA Cardio: COMMON NORMALS: regular rate, regular rhythm, S1 normal heart sound present, S2 normal heart sound present and No murmurs present (Cardio) RATE: regular rate RHYTHM: regular rhythm HEART SOUNDS: S1 normal heart sound present and S2 normal heart sound present GI: COMMON NORMALS: Normal to inspection, nondistended, normoactive bowel sounds present, Soft to palpation and non-tender INSPECTION: Yes central obesity PALPATION: Yes Soft to palpation Back/Pelvis: COMMON NORMALS: thoracic and lumbar spine normal to inspection Extremity: COMMON NORMALS: normal to inspection, full ROM, no clubbing, cyanosis or edema and no pedal edema Neuro: COMMON NORMALS: patient oriented x3, moves all extremities, no focal motor deficits and no sensory deficits noted SENSORIUM/ORIENTATION: Yes alert COORDINATION/BALANCE: sways with eyes open SPEECH: abnormal speech Details: slurred (slightly ( thick tongue)) and other (has particular difficulty with word finding), expressive aphasia and Other neuro speech findings GAIT: Yes Ataxic gait present (slow, halting) SENSORY EXAM: Yes extremities (gross sensation intact in all extremities) MOTOR EXAM: 5/5 motor strength present throughout (in bilateral UEs), Pronator motor function not present, no tremor noted and Abnormal motor strength present (LLE) PUPIL EXAM: Normal pupillary reactivity/response: bilateral Psych: COMMON NORMALS: mental status grossly normal, Normal thought process present, cooperative, normal affect and speech normal SPEECH: Yes normal speech THOUGHT PROCESS: Normal thought process present Skin: COMMON NORMALS: no rashes or lesions noted, no jaundice, no petechiae and no mottling GENERAL SKIN EXAM: no rashes or lesions noted Data : 10/31/19 04:57 10/31/19 04:57 A&P Assessment and plan (1) Lower extremity weakness: -Reports bilateral lower extremity weakness, significantly worse on the left with associated progressive difficulty with ambulation -Has been using a walker or holding onto furniture for the past several days -Associated ataxia, lightheadedness, progressive difficulty with word finding, slurred speech and expressive aphasia, dysphagia -Highly suspicious for CVA -Has had several recent CT head including one done today with noted chronic lacunar infarcts involving right basal ganglia and caudate, mild small vessel changes but no acute intracranial findings -MRI head without contrast with no noted evidence of acute ischemia; does have moderate symmetric atrophy involving the temporal lobes and hippocampal formations and moderate small vessel changes; CTA head and neck with noted 2-3 mm left communicating ICA aneurysm, no significant stenosis -PT/OT/ST evaluations appreciated; outpatient PT recommended -Telemetry monitoring -Fall precautions, assistance with all out of bed activity -noted TSH, A1c, lipid panel -VSS; continue to monitor -Gentle IVF hydration in light of noted ketones in urine, hypercalcemia which is likely due to dehydration; repeat labs in AM improved, will d/c IVF and encourage oral hydration -CPK within normal limits, noted ESR elevation (45) (unknown significance); denies preceding trauma though did have a mechanical fall several days ago with reported R sided rib fracture(s) -Echo: EF=70%, trace MR, trace TR, trace to mild AR -Noted to have significant difficulty with swallowing during ST evaluation, recommended clear liquid diet for now Status: Acute Qualifiers: Laterality: bilateral Qualified Code(s): R29.898 - Other symptoms and signs involving the musculoskeletal system (2) HTN (hypertension): -VSS; continue to monitor -on HCTZ Status: Chronic Qualifiers: Hypertension type: essential hypertension Qualified Code(s): I10 - Essential (primary) hypertension (3) UTI (urinary tract infection): -has been on antibiotic treatment with macrobid for UTI (day 03/21) -UA here not indicative of infection Status: Acute Qualifiers: Hematuria presence: without hematuria Urinary tract infection type: acute cystitis Qualified Code(s): N30.00 - Acute cystitis without hematuria (4) Osteoarthritis: Status: Chronic Qualifiers: Osteoarthritis location: unspecified site Osteoarthritis type: primary Qualified Code(s): M19.91 - Primary osteoarthritis, unspecified site (5) Anxiety disorder: -anxiolytics PRN Status: Chronic Qualifiers: Anxiety disorder type: panic disorder without agoraphobia Qualified Code(s): F41.0 - Panic disorder [episodic paroxysmal anxiety] (6) Hypothyroidism: -TSH-low (0.11) -on levothyroxine Status: Chronic Qualifiers: Hypothyroidism type: unspecified Qualified Code(s): E03.9 - Hypothyroid ism, unspecified (7) GERD (gastroesophageal reflux disease): -on PPI Status: Chronic Qualifiers: Esophagitis presence: esophagitis presence not specified Qualified Code(s): K21.9 - Gastro-esophageal reflux disease without esophagitis Additional A&P Information -Advanced age -review of [facility] records includes hx of DM type II, hyperlipidemia which patient denies and is not on active treatment for; accucheks -GI ppx with PPI -DVT ppx with Lovenox -Dispo: home, potentially with HH -Code status: FULL code Attestations Medical Necessity Statement*: Patient requires hospitalization for continued post-CVA management with notable dysphagia. Time Spent in Patient Care: 16 - 35 minutes (>than 50% of time spent in counselling and/or direct pt care on unit) . Coding Level of Care Code Acute Communication Consultant for Chg Fwd Exam Comprehensive Diagnoses Lower extremity weakness R29.898 Laterality: bilateral HTN (hypertension) I10 Hypertension type: essential hypertension UTI (urinary tract infection) N30.00 Hematuria presence: without hematuria Urinary tract infection type: acute cystitis Osteoarthritis M19.91 Osteoarthritis location: unspecified site Osteoarthritis type: primary Anxiety disorder F41.0 Anxiety disorder type: panic disorder without agoraphobia Hypothyroidism E03.9 Hypothyroidism type: unspecified GERD (gastroesophageal reflux disease) K21.9 Esophagitis presence: esophagitis presence not specified
[2019-10-31] MEDS: potassium chloride oral liq 20 mEq/15 mL UDC 40 MEQ PO (15:10)
[2019-10-31 15:30] VITALS: BP 151/76; PULSE 100; RESP 18; TEMP 36.9; O2SAT 100
[2019-10-31] MEDS: enoxaparin 40 mg/0.4 mL Syringe SUBCUT (18:30)
--- NOTE | 2019-10-31 19:12 | USCV_ITS ---
Mel Ferrara Age: 84 Gender: F : 1935 Exam Date: 10/31/2019 06:09 Ordering Phys: Romi Ag MD Technologist: Jeana Waters Exam Location: [facility] [place] Indication: CVA WORKUP BP: 136 / 74 HR: 90 Rhythm: Sinus Technical Quality: Adequate MEASUREMENTS (Male / Female) Normal Values 2D ECHO LV Diastolic Diameter PLAX 4.0 cm 4.2 - 5.9 / 3.9 - 5.3 cm LV Systolic Diameter PLAX 1.8 cm LV Chamber Size 2.6 cm IVS Diastolic Thickness 1.3 cm 0.6 - 1.0 / 0.6 - 0.9 cm IVS Systolic Thickness 1.3 cm LVPW Diastolic Thickness 1.1 cm 0.6 - 1.0 / 0.6 - 0.9 cm LVPW Systolic Thickness 1.4 cm RV Chamber Size 1.8 cm LVOT Diameter 2.0 cm LV Ejection Fraction 2D Teich 86.6 % LV Ejection Fraction MOD 2C 53.6 % LV Ejection Fraction 2C AL 54.2 % LA Diameter 2.0 cm LA Width 2.8 cm LA Height 2.3 cm RA Width 1.8 cm RA Height 2.1 cm Aorta at Sinotubular Diameter 3.3 cm M-MODE LV Diastolic Diameter MM 4.5 cm 4.2 - 5.9 / 3.9 - 5.3 cm LV Systolic Diameter MM 2.5 cm LV Ejection Fraction MM Teich 76.9 % IVS Diastolic Thickness MM 1.0 cm 0.6 - 1.0 / 0.6 - 0.9 cm IVS Systolic Thickness MM 1.6 cm LVPW Diastolic Thickness MM 1.2 cm 0.6 - 1.0 / 0.6 - 0.9 cm LVPW Systolic Thickness MM 1.8 cm RV Diastolic Diameter MM 1.0 cm Aortic Annulus Diameter 3.2 cm LA Ao Ratio MM 0.6 MV E Point Septal Separation 0.5 cm DOPPLER AV Peak Velocity 182.0 cm/s LVOT Peak Velocity 146.0 cm/s AV Area Cont Eq vti 2.8 cm squared AV Area Cont Eq pk 2.5 cm squared MV Area PHT 6.7 cm squared Mitral E to A Ratio 0.6 MV E' Velocity 8.0 cm/s Mitral E to MV E' Ratio 6.2 Mitral E to LV E' Lateral Ratio 10.1 Mitral E to LV E' Septal Ratio 4.5 TR Peak Velocity 223.9 cm/s TR Peak Gradient 20.1 mmHg TR Mean Velocity 176.4 cm/s TR Mean Gradient 13.7 mmHg TR Velocity Time Integral 55.9 cm TV Peak E Velocity 79.0 cm/s Right Atrial Pressure 3.0 mmHg Pulmonary Artery Systolic Pressu 23.1 mmHg PV Peak Velocity 60.0 cm/s RV Acceleration Time 0.2 s RV Ejection Time 0.4 s RV AcT/ET 0.4 FINDINGS Left Ventricle Normal left ventricular size, systolic function and wall thickness, with no regional wall motion abnormalities. Left ventricular ejection fraction is estimated at 70 %. Normal diastolic function. Right Ventricle Normal right ventricular size and systolic function, RVSP 23.1 mmHg. Right Atrium Right atrial preesure estimated at 3 mm Hg. Left Atrium Normal left atrial size. Mitral Valve Structurally normal mitral valve. Trace mitral valve regurgitation. Aortic Valve Aortic valve not well visualized. No aortic valve stenosis. Trace to mild aortic valve regurgitation. Tricuspid Valve Structurally normal tricuspid valve. Trace tricuspid valve regurgitation. Pulmonic Valve Pulmonic valve not well visualized. Pericardium No pericardial effusion. Aorta Aorta not well visualized. CONCLUSIONS 1. Normal left ventricular size, systolic function and wall thickness, with no regional wall motion abnormalities. Left ventricular ejection fraction is estimated at 70 %. Normal diastolic function. 2. Normal right ventricular size and systolic function, RVSP 23.1 mmHg. 3. Trace to mild aortic valve regurgitation. 4. No prior similar studies to compare. Millie Sanchez MD (Electronically Signed) Final Date: 31 Oct 2019 14:36 S
[2019-10-31 19:21] VITALS: BP 143/78; PULSE 87; RESP 18; TEMP 35.8; O2SAT 98
[2019-10-31 20:35] LABS: Glucose Point of Care 102 mg/dL (70-110)
[2019-11-01] VITALS: BP 175/77; PULSE 91; RESP 18; TEMP 36.6; O2SAT 95
[2019-11-01 03:40] VITALS: BP 138/73; PULSE 97; RESP 18; TEMP 36.7; O2SAT 98
[2019-11-01] MEDS: LORazepam 0.5 mg Tablet PO ×2 (05:56→13:40)
[2019-11-01 06:29] LABS: Glucose Point of Care 110 mg/dL (70-110)
[2019-11-01 08:00] VITALS: BP 147/82; PULSE 113; RESP 19; TEMP 36.7; O2SAT 98
[2019-11-01] MEDS: pantoprazole DR 40 mg Tablet PO (08:56)
[2019-11-01] MEDS: levothyroxine 125 mcg Tablet PO (08:56)
[2019-11-01] MEDS: nitrofurantoin SR (BID) 100 mg Capsule PO (08:56)
[2019-11-01] MEDS: hydroCHLOROthiazide 25 mg Tablet PO (08:56)
--- NOTE | 2019-11-01 10:18 | PC.CHAP ---
Pastoral Care Encounter/Spiritual Assessment Type of Contact [] Declined managing cognitive engineer visit [] Patient/Family/Request visit [] Outpatient visit [] Follow-up visit [] Physician referral [] Code/Alert [x] Routine visit [] Staff referral [] Actively dying [] Patient sleeping [] Family support [] [] Out of room [] Palliative care [] [] Receiving care in room [] Pre-surgical visit [] Trauma [] Long length of stay [] ICU visit [] Other: Relational/Emotional Strength [] Patient feels connected with others/family/visitors/staff [] Distress [] Loneliness/isolation [] Abandonment Spirituality of Patient [] Person of Janis [] Attends Latter Day of their Janis [] Believes in Prayer [] Reads Bible or Druze materials [] There are Spiritual issues to be addressed Photovoltaic Testing Technician Interventions [] Prayer [] Active listening [] Non-anxious presence [] Spiritual/emotional support [] Crisis/trauma care [] Spiritual counseling [] Bereavement support [] Provided bereavement packet [] Provided Bible/devotional materials [] Provided toy/stuffed animal, coloring book to patient or family member [] Provided Communion [] Anointing/[place] [] Salvation [x] Completed spiritual assessment [] Other: Impact on Illness or Injury [] Angry [] Fearful [] Anxious [] Often cries [] Exhaustion [] Unable to work [] Unable to attend orthodox [] Unable to walk/stand [] Unable to read [] Unable to drive [] Unable to eat/drink [] Unable to sleep [] Unable to be with family [] Patient intubated [] Other: Summary Patient shows some confusion. Working at become stronger. Time spent with patient 10 min
[2019-11-01 10:52] LABS: Glucose Point of Care 109 mg/dL (70-110)
--- NOTE | 2019-11-01 11:22 | P.DS_ITS ---
Discharge Providers Date of Admission: 10/31/19 17:36 Date of Discharge: November 01, 2019 Attending Provider at Admission: Romi Ag MD Attending Provider at Discharge: Romi Ag MD Primary Care Provider: Rebekah Nix DO Diagnoses at Discharge Discharge Diagnosis (1) Lower extremity weakness: Status: Acute Problem details: -Reports bilateral lower extremity weakness, significantly worse on the left with associated progressive difficulty with ambulation -Has been using a walker or holding onto furniture for the past several days -Associated ataxia, lightheadedness, progressive difficulty with word finding, slurred speech and expressive aphasia, dysphagia -Highly suspicious for CVA -Has had several recent CT head including one done today with noted chronic lacunar infarcts involving right basal ganglia and caudate, mild small vessel changes but no acute intracranial findings -MRI head without contrast with no noted evidence of acute ischemia; does have moderate symmetric atrophy involving the temporal lobes and hippocampal formations and moderate small vessel changes; CTA head and neck with noted 2-3 mm left communicating ICA aneurysm, no significant stenosis -PT/OT/ST evaluations appreciated; outpatient PT recommended -Telemetry monitoring -Fall precautions, assistance with all out of bed activity -noted TSH, A1c, lipid panel -VSS; continue to monitor -Gentle IVF hydration in light of noted ketones in urine, hypercalcemia which is likely due to dehydration; repeat labs in AM improved, will d/c IVF and encourage oral hydration -CPK within normal limits, noted ESR elevation (45) (unknown significance); denies preceding trauma though did have a mechanical fall several days ago with reported R sided rib fracture(s) -Echo: EF=70%, trace MR, trace TR, trace to mild AR -Noted to have significant difficulty with swallowing during initial ST evaluation, did much better today and advanced to mechanical soft diet Qualifiers: Laterality: bilateral Qualified Code(s): R29.898 - Other symptoms and signs involving the musculoskeletal system (2) HTN (hypertension): Status: Chronic Problem details: -hypertensive today; continue to monitor vital signs -on HCTZ 25 mg daily, may need this titrated if continued hypertension Qualifiers: Hypertension type: essential hypertension Qualified Code(s): I10 - Essential (primary) hypertension (3) UTI (urinary tract infection): Status: Acute Problem details: -has been on antibiotic treatment with macrobid for UTI (day 03/21) -UA here not indicative of infection Qualifiers: Hematuria presence: without hematuria Urinary tract infection type: acute cystitis Qualified Code(s): N30.00 - Acute cystitis without hematuria (4) Osteoarthritis: Status: Chronic Qualifiers: Osteoarthritis location: unspecified site Osteoarthritis type: primary Qualified Code(s): M19.91 - Primary osteoarthritis, unspecified site (5) Anxiety disorder: Status: Chronic Problem details: -anxiolytics PRN, resume clonazepam on d/c Qualifiers: Anxiety disorder type: panic disorder without agoraphobia Qualified Code(s): F41.0 - Panic disorder [episodic paroxysmal anxiety] (6) Hypothyroidism: Status: Chronic Problem details: -TSH-low (0.11) -on levothyroxine, recently adjusted by PCP Qualifiers: Hypothyroidism type: unspecified Qualified Code(s): E03.9 - Hypothyroidism, unspecified (7) GERD (gastroesophageal reflux disease): Status: Chronic Problem details: -on PPI Qualifiers: Esophagitis presence: esophagitis presence not specified Qualified Code(s): K21.9 - Gastro-esophageal reflux disease without esophagitis Other Information Additional DC diagnoses/information: -Advanced age -review of [facility] records includes hx of DM type II, hyperlipidemia which patient denies and is not on active treatment for; accucheks Reason for Visit Reason for Visit: Reason For Visit: LEFT SIDED WEAKNESS Hospital Course Hospital Course: Patient was admitted to the medical surgical floor and placed on telemetry monitoring. Clinical assessment is most consistent with CVA with noted ataxic gait, dysphagia, expressive aphasia though CT head and MRI head have both been unremarkable for any acute findings. She has been evaluated by PT/OT/ST with recommendations made for continued skilled therapy which has been arranged through home health. She was noted to have significant dysphasia and was initially on a clear liquid diet. Following reassessment by speech therapy she was advanced to mechanical soft diet and has been educated on need to adhere to this diet to prevent aspiration. She has been started on aspirin and statin. Due to window of presentation she was not an appropriate candidate for tPA administration. She has been on treatment for UTI with Macrobid which was completed during her hospital stay, therefore she will not require further treatment on discharge. Her repeat urinalysis here is negative for infection. She has consistently been afebrile, hemodynamically stable. She will require close follow-up with her primary care physician as well as referral to neurology. She is advised to seek medical attention immediately should any of her symptoms return or deficits worsen. Discharge Summary: -Patient to follow-up with primary care physician within 1 week -Patient to follow-up with Dr. Leiva as soon as next available appointment Physical Exam Const: COMMON NORMALS: no acute distress, patient oriented x3 and alert GENERAL APPEARANCE: cooperative and comfortable; not in distress and not ill appearing NUTRITIONAL APPEARANCE: obese centrally obese ORIENTATION/CONSCIOUSNESS: Yes awake OTHER: -Appears appropriate for age HENMT: COMMON NORMALS: normocephalic, atraumatic and hearing grossly normal bilaterally HEAD & SCALP: normocephalic and atraumatic MOUTH: moist mucous membranes abnormal Details: parched TEETH & GINGIVA: Yes dentures Eye: COMMON NORMALS: Equal, round and reactive pupils present, EOMs intact bilaterally and conjunctivae normal CONJUNCTIVA: Yes conjunctivae normal PUPIL: Yes Equal, round and reactive pupils present Neck/C-Spine: COMMON NORMALS: full ROM GENERAL: Yes normal visual inspection and Yes trachea midline Chest: CHEST: Yes Symmetrical chest wall rise Resp: COMMON NORMALS: normal respiratory effort, No retractions, No use of accessory muscles and clear to auscultation bilaterally EFFORT & INSPECTION: Yes able to speak in complete sentences, Yes symmetric chest movement and No tachypneic AUSCULTATION: clear to auscultation bilaterally OTHER: -on RA Cardio: COMMON NORMALS: regular rate, regular rhythm, S1 normal heart sound present, S2 normal heart sound present and No murmurs present (Cardio) RATE: regular rate RHYTHM: regular rhythm HEART SOUNDS: S1 normal heart sound present and S2 normal heart sound present GI: COMMON NORMALS: Normal to inspection, nondistended, normoactive bowel sounds present, Soft to palpation and non-tender INSPECTION: Yes central obesity PALPATION: Yes Soft to palpation Back/Pelvis: COMMON NORMALS: thoracic and lumbar spine normal to inspection Extremity: COMMON NORMALS: normal to inspection, full ROM, no clubbing, cyanosis or edema and no pedal edema Neuro: COMMON NORMALS: patient oriented x3, moves all extremities, no focal motor deficits and no sensory deficits noted SENSORIUM/ORIENTATION: Yes alert COORDINATION/BALANCE: sways with eyes open SPEECH: abnormal speech Details: slurred (slightly ( thick tongue)) and other (has particular difficulty with word finding), expressive aphasia and Other neuro speech findings GAIT: Yes Ataxic gait present (slow, halting) SENSORY EXAM: Yes extremities (gross sensation intact in all extremities) MOTOR EXAM: 5/5 motor strength present throughout (in bilateral UEs), Pronator motor function not present, no tremor noted and Abnormal motor strength present (LLE) PUPIL EXAM: Normal pupillary reactivity/response: bilateral Psych: COMMON NORMALS: mental status grossly normal, Normal thought process present, cooperative, normal affect and speech normal SPEECH: Yes normal speech THOUGHT PROCESS: Normal thought process present Skin: COMMON NORMALS: no rashes or lesions noted, no jaundice, no petechiae and no mottling GENERAL SKIN EXAM: no rashes or lesions noted Discharge Data Data Completed and Pending: Completed Studies During Hospitalization Category Date Time Status CT angio headneck * 38272/[id number] Rout ine Cat Scan 10/30/19 18:[address] head wo con* 7 0450 Stat Cat Scan 10/30/19 13:40 Completed MR head wo con* 7 0551 Routine MRI 10/31/19 12:00 Completed CV echo complete* [id number] Routine Ultrasound 10/31/19 19:12 Completed Pending at discharge Category Date Time Status MR head wo con* 7 0551 Routine MRI 10/31/19 14:30 Unverified Labs from last 24 hours 11/01/19 11/01/19 10/31/19 10:47 06:26 20:29 POC Glucose 109 110 102 Vitals: Last Vital Signs Temp 98.0 F 11/01/19 08:00 Pulse 113 H 11/01/19 08:00 Resp 19 H 11/01/19 08:00 BP 147/82 11/01/19 08:00 Pulse Ox 98 11/01/19 08:00 Discharge Plan Discharge Patient Disposition: Home Health Service Condition: Stable Prescriptions: New aspirin 81 mg tablet,delayed release (DR/EC) 81 mg PO DAILY 30 Days Qty: 30 RF: 0 atorvastatin 40 mg tablet 40 mg PO BEDTIME 30 Days Qty: 30 RF: 0 Continued venlafaxine 75 mg tablet 75 mg PO TID RF: 0 clonazepam 1 mg Tablet 1 mg PO BID RF: 0 naproxen 500 mg Tablet 500 mg PO BID PRN (Reason: Pain) RF: 0 cranberry 450 mg Tablet 450 mg PO DAILY RF: 0 Discontinued levothyroxine 112 mcg Tablet 112 mcg PO DAILY RF: 0 nitrofurantoin monohyd/m-cryst 100 mg capsule 100 mg PO BID RF: 0 Discharge Orders: Discharge Order (Routine); Ordered 11/01/19 Ordered By: Romi Ag [place] [facility] [place]) [Outside] Tanya Leiva MD [Physician] - 1 month (Post-CVA follow up. ) Rebekah Nix DO [Primary Care Provider] - 4-7 days (Post hospital discharge follow up. Treated for CVA with noted dysphagia, expressive aphasia, ataxia. ) Discharge Diet: Soft Mechanical Discharge Activity: Increase activity as tolerated Activity Restrictions/Additional Instructions: -Please note that due to difficulty with swallowing, you will need to eat soft foods and be sure to chew carefully before you swallow -Please be careful to use your walker when walking to prevent falling -Please CONTINUE to take your blood pressure medication (hydrochlorothiazide 25 mg daily) and thyroid medication (levothyroxine 125 mcg daily). Please monitor blood pressure once daily and keep a log for review with Dr. Nix Discharge Attestations Time Spent in Discharge Care*: greater than 30 min Specific Discharge Activities: Specific discharge activities: educating patient, discussing with case making machine operator/social workers/dc planners, documenting/other paperwork and evaluating patient/reviewing data Status at Discharge: Cognitive status at discharge: cognitively intact , Behavioral status at discharge: cooperative , Functional status at discharge: uses cane/walker Overall status at discharge: patient has a new baseline Quality Metrics Clinical Quality Measures During this hospital stay, did patient experience: Stroke Contraindication to Antithrombotic: Antithrombotic prescribed (ASA) Contraindication to Anticoagulation: Overlap treatment not indicated Contraindication to Statin: Statin prescribed Contraindication to tPA: Did not meet criteria Reason stroke education not provided: Stroke education provided to patient Rehab services assessed: Physical therapy, Occupational therapy and Speech therapy Coding Level of Care Code Acute Reinforcement Maker for g Fwd Exam Comprehensive Diagnoses Lower extremity weakness R29.898 Laterality: bilateral HTN (hypertension) I10 Hypertension type: essential hypertension UTI (urinary tract infection) N30.00 Hematuria presence: without hematuria Urinary tract infection type: acute cystitis Osteoarthritis M19.91 Osteoarthritis location: unspecified site Osteoarthritis type: primary Anxiety disorder F41.0 Anxiety disorder type: panic disorder without agoraphobia Hypothyroidism E03.9 Hypothyroidism type: unspecified GERD (gastroesophageal reflux disease) K21.9 Esophagitis presence: esophagitis presence not specified
[2019-11-01 11:52] VITALS: BP 171/80; PULSE 97; RESP 20; TEMP 36.6; O2SAT 96
[2019-11-01] MEDS: aspirin 81 mg Chew Tablet PO (13:40)
[2019-11-01 16:00] VITALS: BP 153/71; PULSE 101; RESP 18; TEMP 36.4; O2SAT 95
[2019-11-01 16:28] VITALS: BP 153/71; PULSE 101; RESP 18; TEMP 36.4; O2SAT 95
== END 2019-11-01 16:13 | disposition home health service (06) | DRG 65 ==
LOC: ER 15:48 → MEDSURG 15:49
PROVIDERS: Emergency Medicine; Admitting Provider Family Medicine; Family Provider Family Medicine; PCP Family Medicine; Visit Provider Family Medicine
DX: I63.81 Other cerebral infarction due to occlusion or stenosis of small artery (principal); N39.0 Urinary tract infection, site not specified; R47.81 Slurred speech; R13.10 Dysphagia, unspecified; R47.01 Aphasia; I10 Essential (primary) hypertension; M19.91 Primary osteoarthritis, unspecified site; F41.0 Panic disorder [episodic paroxysmal anxiety]; E03.9 Hypothyroidism, unspecified; K21.9 Gastro-esophageal reflux disease without esophagitis; E11.9 Type 2 diabetes mellitus without complications; E78.5 Hyperlipidemia, unspecified
CPT/HCPCS: 12345; 36415; 36416; 70450; 70496; 70498; 70551; 80048; 80053; 80061; 81003; 82550; 82962; 83036; 84443; 84484; 85025; 85651; 92526; 92610; 93005; 93306; 96372; 96375; 97110; 97116; 97162; 97165; 99281; G0378; J1650; J2060; Q9967

== ENCOUNTER → 2019-12-02 10:56 | Outpatient (BNVA) | payer MEDICARE, SELFPAY | PROVIDERS: Family Provider Family Medicine; PCP Family Medicine; Referring Provider Family Medicine; Visit Provider Nurse Practitioner | DX: I63.9 Cerebral infarction, unspecified (principal); R41.9 Unspecified symptoms and signs involving cognitive functions and awareness; R29.90 Unspecified symptoms and signs involving the nervous system; R41.3 Other amnesia; M79.604 Pain in right leg; M79.605 Pain in left leg | CPT/HCPCS: 96116; 99205 ==

== ENCOUNTER → 2020-06-04 08:15 | Outpatient (BNVA) | payer MEDICARE, SELFPAY | PROVIDERS: Family Provider Family Medicine; PCP Family Medicine; Visit Provider Anesthesiology | DX: M25.561 Pain in right knee (principal); M25.562 Pain in left knee; Z79.891 Long term (current) use of opiate analgesic; Z79.1 Long term (current) use of non-steroidal anti-inflammatories (NSAID); R29.898 Other symptoms and signs involving the musculoskeletal system | CPT/HCPCS: 99204 ==

== ENCOUNTER → 2020-06-19 09:25 | Outpatient (BNVA) | payer MEDICARE, SELFPAY | PROVIDERS: Family Provider Family Medicine; PCP Family Medicine; Visit Provider Nurse Practitioner Family | DX: N39.0 Urinary tract infection, site not specified (principal) | CPT/HCPCS: 81003 ==

== ENCOUNTER → 2020-07-02 08:29 | Outpatient (BNVA) | payer MEDICARE, SELFPAY | PROVIDERS: Family Provider Family Medicine; PCP Family Medicine; Visit Provider Anesthesiology | DX: M25.561 Pain in right knee (principal); M25.562 Pain in left knee | CPT/HCPCS: 20610; 77002; 77003; J1030; J3490 ==

== ENCOUNTER 2020-09-24 11:18 | Outpatient (CLI) | payer MEDICARE, SELFPAY ==
--- NOTE | 2020-09-24 | XR_ITS ---
WS: [id number] HIP WITH PELVIS RIGHT TECHNIQUE: 3 views of the right hip with pelvis CLINICAL INFORMATION: FALL, RIGHT HIP PAIN COMPARISON: None. FINDINGS: Osteopenia. Postoperative changes left KASIA. Hardware appears well seated. Moderate degenerative arthr itis right hip with joint space narrowing. Normal pubic rami. Normal pelvic phleboliths. Degenerative arthritis lower lumbar spine. No acute fractures. XR/XR hip RT 2-3V wo/w pel* [id number] IMPRESSION: 1. Osteopenia. Moderate degenerative arthritis right hip. 2. No acute right hip fractures. 3. Prior postoperative changes left KASIA.
== END 2020-09-24 11:19 | disposition home or self-care (01) ==
LOC: RADWPI 11:22
PROVIDERS: PCP Family Medicine; Visit Provider Registered Nurse
DX: M25.551 Pain in right hip (principal); W19.XXXA Unspecified fall, initial encounter; M85.88 Other specified disorders of bone density and structure, other site; Z96.642 Presence of left artificial hip joint
CPT/HCPCS: 73502

== ENCOUNTER → 2021-01-27 13:59 | Outpatient (BNVA) | payer MEDICARE, SELFPAY | PROVIDERS: PCP Family Medicine; Visit Provider Urology | DX: R33.8 Other retention of urine (principal); N39.0 Urinary tract infection, site not specified | CPT/HCPCS: 81003 ==

== ENCOUNTER → 2021-04-21 15:11 | Outpatient (BNVA) | payer MEDICARE, SELFPAY | PROVIDERS: PCP Family Medicine; Referring Provider Family Medicine; Visit Provider Orthopaedic Surgery | DX: M25.561 Pain in right knee (principal); M25.562 Pain in left knee; M17.0 Bilateral primary osteoarthritis of knee | CPT/HCPCS: 73560; 73565 ==

== ENCOUNTER 2021-05-25 10:49 | Outpatient (CLI) | payer MEDICARE, SELFPAY ==
--- NOTE | 2021-05-25 10:58 | MR_ITS ---
WS: [id number] MRI BRAIN WITH HIGH-RESOLUTION IMAGING THROUGH THE INTERNAL AUDITORY CANALS WITHOUT AND WITH CONTRAST HISTORY: Chronic sinusitis and dizziness COMPARISON: 10/31/2019 TECHNIQUE: Multiplanar, multisequence imaging is performed through the brain. Additional 3 mm imaging performed in multiple planes through the internal auditory canal. Postcontrast imaging with 14 ml's of MultiHance. No acute intracranial hemorrhage, midline shift, edema or mass effect. Moderate amount of scattered T2 and FLAIR signal hyperintensities in the periventricular subcortical white matter and also within the brandie. Consistent with small vessel ischemic disease which has not ch anged since the prior study. No abnormality noted at the cerebellopontine angle. Ventricles and extra-axial spaces are normal. No inferior displacement of cerebellar tonsils. Clivus and pituitary gland are normal. Internal and external auditory canals: Unremarkable. Cranial nerves VII and VIII complexes: Unremarkable. No enhancement or mass. Cerebellopontine angles: Normal. Paranasal sinuses: Mild mucoperiosteal thickening in the RIGHT maxillary sinus. Small amount of mucop eriosteal disease in the RIGHT sphenoid sinus. Mastoid air cells: Small amount of fluid in the mastoid air cells bilaterally, greatest on the RIGHT. Calvarium and scalp: Normal. Visualized [place] and dural venous sinuses demonstrate no abnormality. MR/MR iac's wo/w con* [id number] IMPRESSION: 1. Normal MRI internal auditory canals. 2. No mass at the cerebellopontine angles. 3. Moderate small vessel ischemic disease in the supratentorial white matter a nd also the brandie. 4. RIGHT maxillary and sphenoid sinus disease.
[2021-05-25] MEDS: gadobenate dimeglumine 20 mL vial IV (11:52)
== END 2021-05-25 10:50 | disposition home or self-care (01) ==
PROVIDERS: PCP Family Medicine; Visit Provider Specialist
DX: J32.9 Chronic sinusitis, unspecified (principal); R42 Dizziness and giddiness; I67.82 Cerebral ischemia; J32.0 Chronic maxillary sinusitis; J32.3 Chronic sphenoidal sinusitis
CPT/HCPCS: 70553; A9577

== ENCOUNTER 2021-07-23 16:20 | Emergency (ER) | payer MEDICARE, SELFPAY ==
[2021-07-23 16:35] VITALS: BP 103/57; PULSE 102; RESP 18; TEMP 36.4; O2SAT 95; BMI 22.3
--- NOTE | 2021-07-23 17:42 | ECG_ITS ---
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[id number] Requested By: Paul Jimenez Order Number: [id number] Reading MD: CHELSI CERDA Measurements Intervals [place] Rate: 94 P: 38 OR: 172 QRS: -29 QRSD: 133 T: 24 QT: 366 QTc: 460 Interpretive Statements SINUS RHYTHM RIGHT BUNDLE BRANCH BLOCK [120+ ms QRS DURATION, UPRIGHT V1, 40+ ms S IN I/aVL/V4/V5/V6] ANTEROLATERAL MYOCARDIAL INFARCTION , OF INDETERMINATE AGE [40+ ms Q WAVE IN I/aVL/V3-V6] INTERPRETATION BASED ON A DEFAULT AGE OF 40 YEARS Compared to ECG 10/30/2019 20:12:13 No significant changes Electronically Signed On 07-23-2021 22:54:28 MEDICAL RECORD LIBRARIAN by CHELSI CERDA [id number]
[2021-07-23 18:34] LABS: Basophils # 0.1 10^3/uL (0.0-0.1); Basophils % 0.6 %; Eosinophils # 0.7 10^3/uL (0.0-0.8); Eosinophils % 4.2 %; Hematocrit 39.5 % (37.0-47.0); Hemoglobin 12.6 g/dL (11.5-15.3); Lymphocytes # 2.7 10^3/uL (0.8-4.8); Lymphocytes % 17.7 %; Mean Corpuscular HGB Conc 31.9 g/dL (30.0-36.0); Mean Corpuscular Hemoglobin 29.9 pg (28.0-34.0); Mean Corpuscular Volume 93.6 fl (81-99); Mean Platelet Volume 9.5 fL (7.4-10.4); Monocytes # 1.3 10^3/uL (0.2-0.9); Monocytes % 8.3 %; Neutrophils # 10.63 10^3/uL (1.8-7.7); Neutrophils % 68.9 %; Nucleated Red Blood Cells % 0 %; Platelet Count 298 10^3/cmm (130-400); Red Blood Count 4.22 10^6/uL (4.1-5.3); Red Cell Distribution Width 13.4 % (12.1-15.1); White Blood Count 15.5 10^3/uL (4.0-10.0)
--- NOTE | 2021-07-23 18:45 | CTR_ITS ---
PROCEDURE INFORMATION: Exam: CT Abdomen And Pelvis With Contrast Exam date and time: 07/23/2021 6:45 PM Age: 86 years old Clinical indication: Prior surgery; Surgery date: 6+ months; Surgery type: Back, hyst, appy, hip; Patient HX: C/O constipation; Additional info: Abd pain, constipation TECHNIQUE: Imaging protocol: Computed tomography of the abdomen and pelvis with contrast. Radiation optimization: All CT scans at this facility use at least one of these dose optimization techniques: automated exposure control; mA and/or kV adjustment per patient size (includes targeted exams where dose is matched to clinical indication); or iterative reconstruction. Contrast material: VISI 320; Contrast volume: 95 ml; Contrast route: INTRAVENOUS (IV); COMPARISON: No relevant prior studies available. RADIATION DOSE METRICS: Total DLP (mGy-cm): 1278.34 FINDINGS: Lungs: Minimal subpleural fibrosis in the lung bases. Liver: The liver is normal. Gallbladder and bile ducts: The gallbladder is normal. There is no biliary dilation. Pancreas: There is moderate atrophy of the pancreas. Spleen: The spleen is unremarkable. Adrenal glands: The adrenal glands are unremarkable. Kidneys and ureters: Mild bilateral hydronephrosis. Prominent bilateral renal pelvis, greater on the right. No significant ureteral dilation. Mild proximal ureteral distention. No stones. Stomach and bowel: The stomach is decompressed, preventing meaningful evaluation of wall thickness. The small bowel is nondilated. The colon is diffusely stool-filled. There is no sign of colitis. Appendix: Not visible. Intraperitoneal space: There is no free air or significant intraperitoneal free fluid. Vasculature: There is moderate aortic atherosclerotic disease. The portal, splenic and superior mesenteric veins are patent. Lymph nodes: There is no lymphadenopathy in the retroperitoneum, mesentery, pelvis or inguinal regions. Urinary bladder: The urinary bladder is unremarkable. Reproductive: The uterus is absent. There is no adnexal mass or large cyst. Bones/joints: There is moderate degenerative disease in the lumbar spine. The left hip prosthesis is intact and well aligned. The pelvis and proximal femora are intact. Soft tissues: The abdominal wall is intact. CT/CT abdomen pelvis w con* [id number] IMPRESSION: 1. Diffusely stool-filled colon consistent with the provided clinical history of constipation. There is no sign of colonic inflammation or obstruction. 2. Incidental findings above.
--- NOTE | 2021-07-23 18:46 | W.ED.WEAKNES ---
Documented by User: MAX Patino 07/23/21 21:36 HPI - Weakness General: Chief complaint: Weakness Stated complaint: Extreme weakness, hx of a stroke Time Seen by Provider: 07/23/21 18:45 History of Present Illness: 86-year-old female comes in today with complaints of weakness and malaise since Monday. Patient reports feeling constipated. Patient taken some laxatives over the week with some results yesterday and today. Patient does report a history of CVA which she has been recovering well up until this week. Patient reports some mild abdominal pain. Patient appears pale but in no acute distress. MD Complaint: generalized weakness Onset (ago): day(s) Location: generalized Relieving factors: none Exacerbating factors: exertion Review of Systems General: Reports: 10 or more systems reviewed and unremarkable except in HPI and below GI: Reports: abdominal pain and constipation PFSH ED PFSH: Medical History Acute urinary retention Anxiety disorder -anxiolytics PRN, resume clonazepam on d/c Bilateral knee pain CVA (cerebral vascular accident) Encounter for long-term (current) use of NSAIDs Encounter for narcotic contract discussion Episode of transient neurologic symptoms GERD (gastroesophageal reflux disease) -on PPI HTN (hypertension) -hypertensive today; continue to monitor vital signs -on HCTZ 25 mg daily, may need this titrated if continued hypertension Hypothyroidism -TSH-low (0.11) -on levothyroxine, recently adjusted by PCP Memory loss Osteoarthritis Recurrent UTI UTI (urinary tract infection) -has been on antibiotic treatment with macrobid for UTI (day 03/21) -UA here not indicative of infection Surgical History H/O laminectomy H/O: hysterectomy History of appendectomy History of back surgery History of hip replacement S/P left knee arthroscopy Family History Son Alcohol abuse Psychiatric illness Bipolar disorder Mother Cancer Social History Smoking and tobacco status: former smoker Quit status (tobacco): has quit using tobacco Former quit date comment: Remote history Second hand smoke exposure: No Alcohol intake: never Household members: spouse Marital status: Current occupational status: retired History of recent travel: No Physical Exam Const: COMMON NORMALS: alert HENMT: COMMON NORMALS: normocephalic and Normal nasal mucous membranes and turbinates present HEAD & SCALP: normocephalic NOSE: Normal nasal mucous membranes and turbinates present THROAT: posterior oropharynx normal Neck/C-Spine: COMMON NORMALS: full ROM Resp: COMMON NORMALS: normal respiratory effort and clear to auscultation bilaterally AUSCULTATION: clear to auscultation bilaterally Cardio: COMMON NORMALS: regular rate and regular rhythm RATE: regular rate RHYTHM: regular rhythm GI: COMMON NORMALS: Soft to palpation AUSCULTATION: Yes normoactive bowel sounds PALPATION: Yes Soft to palpation, Yes Tenderness to palpation present (GI) (General lower abdomen) and No Guarding due to palpation present (GI) Extremity: COMMON NORMALS: normal to inspection Neuro: SENSORIUM/ORIENTATION: Yes alert Psych: COMMON NORMALS: cooperative Skin: COMMON NORMALS: no rashes or lesions noted GENERAL SKIN EXAM: no rashes or lesions noted Course Reevaluation(s): Reevaluation #1: 2100, after a liter of IV fluid patient reports improvement in symptoms. We are awaiting results from CT scan. Review of the CT scan noted some distended bladder and mild hydronephrosis. Vital Signs: Vital signs: Vital Signs Temperature 97.6 F 07/23/21 16:35 Pulse Rate 94 07/23/21 20:39 Respiratory Rate 18 07/23/21 20:39 Blood Pressure 152/73 07/23/21 20:39 Pulse Oximetry 99 07/23/21 20:39 MDM - Weakness Medical Decision Making 86-year-old female comes in today with complaints of of malaise and constipation. On exam abdomen is soft with some normal active bowel sounds. Patient does have some lower abdominal tenderness. Vital signs are normal. Differential diagnosis includes but not limited to bowel obstruction, constipation, dehydration, diverticulitis, UTI. Urinalysis was unremarkable. CBC showed a white count of 15,000, CMP noted a creatinine of 1.4 and BUN of 36. Sodium was 139 and potassium was 4.1. CT of the abdomen pelvis indicated no acute abnormality except for some constipation. Patient was given 1 L of IV fluids with improvement of overall symptoms. Reviewed exam with patient with recommendations for treatment of constipation. Patient was given 1 bottle of magnesium citrate to use at home and then to continue with MiraLAX 3 times a day until good bowel movement and patterns established. Patient then should use MiraLAX once a day to maintain routine stools. Patient reported understanding and routinely uses Linzess for her constipation. Lab Data : 07/23/21 18:25 07/23/21 18:25 Radiology Impressions Abdomen/Pelvis CT 07/23/21 18:45 IMPRESSION: 1. Diffusely stool-filled colon consistent with the provided clinical history of constipation. There is no sign of colonic inflammation or obstruction. 2. Incidental findings above. Chest X-Ray 07/23/21 20:39 IMPRESSION: No acute findings. Laboratory Results WBC 15.5 10^3/uL (4.0-10.0) H 07/23/21 18:25 RBC 4.22 10^6/uL (4.1-5.3) 07/23/21 18:25 Hgb 12.6 g/dL (11.5-15.3) 07/23/21 18:25 Hct 39.5 % (37.0-47.0) 07/23/21 18:25 MCV 93.6 fl (81-99) 07/23/21 18:25 MCH 29.9 pg (28.0-34.0) 07/23/21 18:25 MCHC 31.9 g/dL (30.0-36.0) 07/23/21 18:25 RDW 13.4 % (12.1-15.1) 07/23/21 18:25 Plt Count 298 10^3/cmm (130-400) 07/23/21 18:25 MPV 9.5 fL (7.4-10.4) 07/23/21 18:25 Neut % (Auto) 68.9 % 07/23/21 18:25 Lymph % (Auto) 17.7 % 07/23/21 18:25 Cache % (Auto) 8.3 % 07/23/21 18:25 Eos % (Auto) 4.2 % 07/23/21 18:25 Baso % (Auto) 0.6 % 07/23/21 18:25 Neut # (Auto) 10.63 10^3/uL (1.8-7.7) H 07/23/21 18:25 Lymph # (Auto) 2.7 10^3/uL (0.8-4.8) 07/23/21 18:25 Cache # (Auto) 1.3 10^3/uL (0.2-0.9) H 07/23/21 18:25 Eos # (Auto) 0.7 10^3/uL (0.0-0.8) 07/23/21 18:25 Baso # (Auto) 0.1 10^3/uL (0.0-0.1) 07/23/21 18:25 Nucleated RBC % (auto) 0 % 07/23/21 18:25 Nucleated RBCs # 0.0 /100WBC 07/23/21 18:25 Sodium 139 mmol/L (136-145) 07/23/21 18:25 Potassium 4.1 mmol/L (3.5-5.1) 07/23/21 18:25 Chloride 102 mmol/L (98-107) 07/23/21 18:25 Carbon Dioxide 23 mmol/L (22-29) 07/23/21 18:25 Anion Gap 18.1 (5-19) 07/23/21 18:25 BUN 36 mg/dL (8-23) H 07/23/21 18:25 Creatinine 1.4 mg/dL (0.5-0.9) H 07/23/21 18:25 GFR Calculation Not Reportable 07/23/21 18:25 Glucose 108 mg/dL (65-115) 07/23/21 18:25 Calculated Osmolality 297 mOsm/kg (285-295) H 07/23/21 18:25 Calcium 10.6 mg/dL (8.5-10.5) H 07/23/21 18:25 Total Bilirubin 0.5 mg/dL (0.15-1.2) 07/23/21 18:25 AST 18 U/L (0-32) 07/23/21 18:25 ALT 13 U/L (0-33) 07/23/21 18:25 Alkaline Phosphatase 111 IU/L (35-105) H 07/23/21 18:25 Total Protein 8.3 g/dL (6.6-8.7) 07/23/21 18:25 Albumin 4.6 g/dL (3.5-5.2) 07/23/21 18:25 Globulin 3.7 g/dL (1.3-4.6) 07/23/21 18:25 Lipase 7 U/L (13-60) L 07/23/21 18:25 TSH 2.90 uIU/mL (0.27-4.20) 07/23/21 18:25 Urine Color Yellow (Yellow) 07/23/21 20:20 Urine Appearance Clear (CLEAR) 07/23/21 20:20 Urine pH 6 (5-7) 07/23/21 20:20 Ur Specific [place] 1.010 (1.005-1.030) 07/23/21 20:20 Urine Protein Neg (Negative) 07/23/21 20:20 Urine Glucose (UA) Norm (Normal) 07/23/21 20:20 Urine Ketones Negative (Negative) 07/23/21 20:20 Urine Blood Neg (Negative) 07/23/21 20:20 Urine Nitrate Negative (Negative) 07/23/21 20:20 Urine Bilirubin Neg (Negative) 07/23/21 20:20 Urine Urobilinogen Neg mg/dL (Negative) 07/23/21 20:20 Ur Leukocyte Esterase Negative (Negative) 07/23/21 20:20 Discharge Plan Discharge Patient Disposition: Home Clinical Impression: Constipation by delayed colonic transit, Dehydration Condition: Stable Prescriptions: New Miralax 17 gram/dose powder 17 g PO TID Qty: 510 0RF Rx Instructions: Use MiraLAX 3 times a day until good stool result then continue once daily. No Action hydrochlorothiazide 25 mg tablet 25 mg PO DAILY 0RF omeprazole 20 mg capsule,delayed release(DR/EC) 20 mg PO DAILY 0RF venlafaxine 75 mg tablet 75 mg PO BID 0RF quetiapine 25 mg tablet 25 mg PO TID 0RF fluticasone propionate [Flonase Allergy Relief] 50 mcg/actuation spray,suspension 2 spray INTRANASAL DAILY PRN0RF Rx Instructions: administer into each nostril melatonin 10 mg capsule 10 mg PO DAILY 0RF atorvastatin [Lipitor] 40 mg tablet 40 mg PO DAILY Qty: 30 0RF aspirin [Adult Low Dose Aspirin] 81 mg tablet,delayed release (DR/EC) 81 mg PO DAILY Qty: 30 0RF levothyroxine 50 mcg capsule 50 mcg PO DAILY 0RF methenamine hippurate 1 gram tablet 1 g PO BID Qty: 60 12RF Rx Instructions: Take 1000 mg of vitamin C with each dose of methenamine Gel-One 30 mg/3 mL syringe 30 mg intra-articular ONCE Qty: 3 0RF alfuzosin 10 mg tablet extended release 24 hr 10 mg PO DAILY Qty: 30 12RF Rx Instructions: administer after the same meal each day clonazepam 1 mg tablet 1 mg PO DAILY 0RF Discharge Orders: Discharge ED (Routine); Ordered 07/23/21 Ordered By: Abhinav Villa Referrals: Rebekah Nix DO [Primary Care Provider] - Discharge Diet: Usual diet Discharge Activity: Increase activity as tolerated Patient Instructions: Constipation (DC), Opioid Safety Activity Restrictions/Additional Instructions: Drink plenty of fluids. Use magnessium citrate as directed once, then Use MiraLAX as directed 3 times a day until a good stool results. After that continue the MiraLAX daily to prevent constipation. Follow-up with primary care in 3 to 5 days for recheck. Return to the ER for worsening symptoms or new concerns. Coding Level of Care Code ED Video Production Assistant for Chg Fwd Exam Comprehensive Medical Decision Making Moderate Complexity Time Spent (min) 30 Documented by User: Erik Cherry DO 07/23/21 23:07 HPI - Weakness General: Chief complaint: Weakness Stated complaint: Extreme weakness, hx of a stroke Time Seen by Provider: 07/23/21 18:45 [facility] ED PFSH: Medical History Acute urinary retention Anxiety disorder -anxiolytics PRN, resume clonazepam on d/c Bilateral knee pain CVA (cerebral vascular accident) Encounter for long-term (current) use of NSAIDs Encounter for narcotic contract discussion Episode of transient neurologic symptoms GERD (gastroesophageal reflux disease) -on PPI HTN (hypertension) -hypertensive today; continue to monitor vital signs -on HCTZ 25 mg daily, may need this titrated if continued hypertension Hypothyroidism -TSH-low (0.11) -on levothyroxine, recently adjusted by PCP Memory loss Osteoarthritis Recurrent UTI UTI (urinary tract infection) -has been on antibiotic treatment with macrobid for UTI (day 03/21) -UA here not indicative of infection Surgical History H/O laminectomy H/O: hysterectomy History of appendectomy History of back surgery History of hip replacement S/P left knee arthroscopy Family History Son Alcohol abuse Psychiatric illness Bipolar disorder Mother Cancer Social History Smoking and tobacco status: former smoker Quit status (tobacco): has quit using tobacco Former quit date comment: Remote history Second hand smoke exposure: No Alcohol intake: never Household members: spouse Marital status: Current occupational status: retired History of recent travel: No Course Vital Signs: Vital signs: Vital Signs Temperature 97.6 F 07/23/21 16:35 Pulse Rate 94 07/23/21 20:39 Respiratory Rate 18 07/23/21 20:39 Blood Pressure 152/73 07/23/21 20:39 Pulse Oximetry 99 07/23/21 20:39 MDM - Weakness Medical Decision Making 86-year-old female comes in today with complaints of of malaise and constipation. On exam abdomen is soft with some normal active bowel sounds. Patient does have some lower abdominal tenderness. Vital signs are normal. Differential diagnosis includes but not limited to bowel obstruction, constipation, dehydration, diverticulitis, UTI. Urinalysis was unremarkable. CBC showed a white count of 15,000, CMP noted a creatinine of 1.4 and BUN of 36. Sodium was 139 and potassium was 4.1. CT of the abdomen pelvis indicated no acute abnormality except for some constipation. Patient was given 1 L of IV fluids with improvement of overall symptoms. Reviewed exam with patient with recommendations for treatment of constipation. Patient was given 1 bottle of magnesium citrate to use at home and then to continue with MiraLAX 3 times a day until good bowel movement and patterns established. Patient then should use MiraLAX once a day to maintain routine stools. Patient reported understanding and routinely uses Linzess for her constipation. This patient was originally seen by MAX Kramer.? I agree with his history, evaluation, and treatment. Lab Data : 07/23/21 18:25 07/23/21 18:25 Radiology Impressions Abdomen/Pelvis CT 07/23/21 18:45 IMPRESSION: 1. Diffusely stool-filled colon consistent with the provided clinical history of constipation. There is no sign of colonic inflammation or obstruction. 2. Incidental findings above. Chest X-Ray 07/23/21 20:39 IMPRESSION: No acute findings. Laboratory Results WBC 15.5 10^3/uL (4.0-10.0) H 07/23/21 18:25 RBC 4.22 10^6/uL (4.1-5.3) 07/23/21 18: Hgb 12.6 g/dL (11.5-15.3) 07/23/21 18: Hct 39.5 % (37.0-47.0) 07/23/21 18:25 MCV 93.6 fl (81-99) 07/23/21 18: MCH 29.9 pg (28.0-34.0) 07/23/21 18:25 MCHC 31.9 g/dL (30.0-36.0) 07/23/21 18: RDW 13.4 % (12.1-15.1) 07/23/21 18: Plt Count 298 10^3/cmm (130-400) 07/23/21 18:25 MPV 9.5 fL (7.4-10.4) 07/23/21 18:25 Neut % (Auto) 68.9 % 07/23/21 18: Lymph % (Auto) 17.7 % 07/23/21 18:25 Cache % (Auto) 8.3 % 07/23/21 18:25 Eos % (Auto) 4.2 % 07/23/21 18:25 Baso % (Auto) 0.6 % 07/23/21 18: Neut # (Auto) 10.63 10^3/uL (1.8-7.7) H 07/23/21 18:25 Lymph # (Auto) 2.7 10^3/uL (0.8-4.8) 07/23/21 18:25 Cache # (Auto) 1.3 10^3/uL (0.2-0.9) H 07/23/21 18:25 Eos # (Auto) 0.7 10^3/uL (0.0-0.8) 07/23/21 18:25 Baso # (Auto) 0.1 10^3/uL (0.0-0.1) 07/23/21 18:25 Nucleated RBC % (auto) 0 % 07/23/21 18:25 Nucleated RBCs # 0.0 /100WBC 07/23/21 18:25 Sodium 139 mmol/L (136-145) 07/23/21 18:25 Potassium 4.1 mmol/L (3.5-5.1) 07/23/21 18:25 Chloride 102 mmol/L (98-107) 07/23/21 18:25 Carbon Dioxide 23 mmol/L (22-29) 07/23/21 18:25 Anion Gap 18.1 (5-19) 07/23/21 18:25 BUN 36 mg/dL (8-23) H 07/23/21 18:25 Creatinine 1.4 mg/dL (0.5-0.9) H 07/23/21 18:25 GFR Calculation Not Reportable 07/23/21 18:25 Glucose 108 mg/dL (65-115) 07/23/21 18:25 Calculated Osmolality 297 mOsm/kg (285-295) H 07/23/21 18:25 Calcium 10.6 mg/dL (8.5-10.5) H 07/23/21 18:25 Total Bilirubin 0.5 mg/dL (0.15-1.2) 07/23/21 18:25 AST 18 U/L (0-32) 07/23/21 18:25 ALT 13 U/L (0-33) 07/23/21 18:25 Alkaline Phosphatase 111 IU/L (35-105) H 07/23/21 18:25 Total Protein 8.3 g/dL (6.6-8.7) 07/23/21 18:25 Albumin 4.6 g/dL (3.5-5.2) 07/23/21 18:25 Globulin 3.7 g/dL (1.3-4.6) 07/23/21 18:25 Lipase 7 U/L (13-60) L 07/23/21 18:25 TSH 2.90 uIU/mL (0.27-4.20) 07/23/21 18:25 Urine Color Yellow (Yellow) 07/23/21 20:20 Urine Appearance Clear (CLEAR) 07/23/21 20:20 Urine pH 6 (5-7) 07/23/21 20:20 Ur Specific [place] 1.010 (1.005-1.030) 07/23/21 20:20 Urine Protein Neg (Negative) 07/23/21 20:20 Urine Glucose (UA) Norm (Normal) 07/23/21 20:20 Urine Ketones Negative (Negative) 07/23/21 20:20 Urine Blood Neg (Negative) 07/23/21 20:20 Urine Nitrate Negative (Negative) 07/23/21 20:20 Urine Bilirubin Neg (Negative) 07/23/21 20:20 Urine Urobilinogen Neg mg/dL (Negative) 07/23/21 20:20 Ur Leukocyte Esterase Negative (Negative) 07/23/21 20:20 Discharge Plan Discharge Patient Disposition: Home Clinical Impression: Constipation by delayed colonic transit, Dehydration Condition: Stable Prescriptions: New Miralax 17 gram/dose powder 17 g PO TID Qty: 510 0RF Rx Instructions: Use MiraLAX 3 times a day until good stool result then continue once daily. No Action hydrochlorothiazide 25 mg tablet 25 mg PO DAILY 0RF omeprazole 20 mg capsule,delayed release(DR/EC) 20 mg PO DAILY 0RF venlafaxine 75 mg tablet 75 mg PO BID 0RF quetiapine 25 mg tablet 25 mg PO TID 0RF fluticasone propionate [Flonase Allergy Relief] 50 mcg/actuation spray,suspension 2 spray INTRANASAL DAILY PRN0RF Rx Instructions: administer into each nostril melatonin 10 mg capsule 10 mg PO DAILY 0RF atorvastatin [Lipitor] 40 mg tablet 40 mg PO DAILY Qty: 30 0RF aspirin [Adult Low Dose Aspirin] 81 mg tablet,delayed release (DR/EC) 81 mg PO DAILY Qty: 30 0RF levothyroxine 50 mcg capsule 50 mcg PO DAILY 0RF methenamine hippurate 1 gram tablet 1 g PO BID Qty: 60 12RF Rx Instructions: Take 1000 mg of vitamin C with each dose of methenamine Gel-One 30 mg/3 mL syringe 30 mg intra-articular ONCE Qty: 3 0RF alfuzosin 10 mg tablet extended release 24 hr 10 mg PO DAILY Qty: 30 12RF Rx Instructions: administer after the same meal each day clonazepam 1 mg tablet 1 mg PO DAILY 0RF Discharge Orders: Discharge ED (Routine); Ordered 07/23/21 Ordered By: Abhinav Villa Referrals: Rebekah Nix DO [Primary Care Provider] - Discharge Diet: Usual diet Discharge Activity: Increase activity as tolerated Patient Instructions: Constipation (DC), Opioid Safety Activity Restrictions/Additional Instructions: Drink plenty of fluids. Use magnessium citrate as directed once, then Use MiraLAX as directed 3 times a day until a good stool results. After that continue the MiraLAX daily to prevent constipation. Follow-up with primary care in 3 to 5 days for recheck. Return to the ER for worsening symptoms or new concerns. Coding Level of Care Code ED Video Production Assistant for Redg Fwd Exam Comprehensive Medical Decision Making Moderate Complexity Time Spent (min) 30
[2021-07-23 18:57] VITALS: BP 130/63; PULSE 93; RESP 16; O2SAT 99
[2021-07-23 18:58] LABS: Alanine Aminotransferase 13 U/L (0-33); Albumin Level 4.6 g/dL (3.5-5.2); Alkaline Phosphatase 111 IU/L (35-105); Anion Gap 18.1 (5-19); Aspartate Amino Transferase 18 U/L (0-32); Blood Urea Nitrogen 36 mg/dL (8-23); Calcium 10.6 mg/dL (8.5-10.5); Carbon Dioxide 23 mmol/L (22-29); Chloride 102 mmol/L (98-107); Globulin 3.7 g/dL (1.3-4.6); Glucose 108 mg/dL (65-115); Lipase 7 U/L (13-60); Osmolality Calculated 297 mOsm/kg (285-295); Potassium 4.1 mmol/L (3.5-5.1); Sodium 139 mmol/L (136-145); Total Bilirubin 0.5 mg/dL (0.15-1.2); Total Protein 8.3 g/dL (6.6-8.7)
--- NOTE | 2021-07-23 19:01 | PC.NURSE ---
Pt unable to provide UA sample at this time. Pt educated to called RN when need arises.
[2021-07-23] MEDS: sodium chloride 0.9% 1,000 ML 999 ML IV (19:07)
--- NOTE | 2021-07-23 19:40 | PC.NURSE ---
Pt ambulatory with walker to restroom. Pt attempted to give UA sample but unsuccessful
[2021-07-23 20:39] VITALS: BP 152/73; PULSE 94; RESP 18; O2SAT 99
--- NOTE | 2021-07-23 20:39 | XRR_ITS ---
PROCEDURE INFORMATION: Exam: XR Chest Exam date and time: 07/23/2021 8:39 PM Age: 86 years old Clinical indication: Cough and dyspnea; Additional info: Weakness, cough TECHNIQUE: Imaging protocol: XR of the chest. Views: 1 view. COMPARISON: CR XR knees AP WB w BI lmt ORTH 04/21/2021 3:19 PM FINDINGS: Lungs: Lungs are clear. Pleural spaces: There is no pleural effusion or pneumothorax. Heart/Mediastinum: Cardiomediastinal contours are unremarkable. Bones/joints: Bones are unremarkable. XR/XR chest 1V portable [id number] IMPRESSION: No acute findings.
[2021-07-23 20:40] LABS: Add Urine Microscopic? NO; Charge for UA Resulting for Rev
[2021-07-23 20:55] LABS: Bilirubin Urine Neg (Negative); Blood Urine Neg (Negative); Glucose Urine UA Norm (Normal); Ketones Urine Negative (Negative); Leukocyte Esterase Urine Negative (Negative); Nitrate Urine Negative (Negative); Protein Urine Neg (Negative); Urine Appearance Clear (CLEAR); Urine Color Yellow (Yellow); Urobilinogen Urine Neg (Negative); pH Urine 6 (5-7)
[2021-07-23] MEDS: magnesium citrate Btl 296 mL PO (21:34)
== END 2021-07-23 21:35 | disposition home or self-care (01) ==
PROVIDERS: Emergency Medicine; Emergency Provider Nurse Practitioner Family; PCP Family Medicine
DX: K59.01 Slow transit constipation (principal); E86.0 Dehydration; Z79.82 Long term (current) use of aspirin; Z86.73 Personal history of transient ischemic attack (TIA), and cerebral infarction without residual deficits; I10 Essential (primary) hypertension; Z87.891 Personal history of nicotine dependence
CPT/HCPCS: 71045; 74177; 80053; 81003; 83690; 84443; 85025; 93005; 96360; 99284; J7030; Q9967

== ENCOUNTER 2021-08-29 06:34 | Emergency (ER) | payer MEDICARE, SELFPAY ==
[2021-08-29 06:42] VITALS: BP 112/69; PULSE 99; RESP 18; TEMP 36.6; O2SAT 96; BMI 23.6
[2021-08-29 06:46] VITALS: BP 113/67; PULSE 83; RESP 16; TEMP 36.6; O2SAT 94
--- NOTE | 2021-08-29 07:03 | XRR_ITS ---
PROCEDURE INFORMATION: Exam: XR Abdomen Exam date and time: 08/29/2021 6:49 AM Age: 86 years old Clinical indication: Constipation; Additional info: Constipation, eval for fecal impaction TECHNIQUE: Imaging protocol: XR of the abdomen. Views: Frontal supine view of the abdomen. 1 View. COMPARISON: CT abdomen pelvis w con* [id number] 07/23/2021 8:47 PM FINDINGS: Gastrointestinal tract: There is a moderate to large amount of stool throughout the colon and rectum, suggestive of constipation. Nonobstructive bowel gas pattern. Bones/joints: The patient is status post left total hip arthroplasty. Degenerative changes of the spine seen. XR/XR KUB portable [id number] IMPRESSION: Imaging findings of constipation.
[2021-08-29 07:16] VITALS: BP 104/96; PULSE 88; RESP 16; TEMP 36.7; O2SAT 96
--- NOTE | 2021-08-29 07:37 | PC.NURSE ---
c/o urinary retention, has hx of retention. St cath w 1800ml clear yellow out.
[2021-08-29 07:48] LABS: Add Urine Microscopic? NO; Charge for UA Resulting for Rev
[2021-08-29 08:02] LABS: Basophils # 0.1 10^3/uL (0.0-0.1); Basophils % 0.8 %; Eosinophils # 0.9 10^3/uL (0.0-0.8); Eosinophils % 10.1 %; Hematocrit 38.7 % (37.0-47.0); Hemoglobin 12.6 g/dL (11.5-15.3); Lymphocytes # 2.2 10^3/uL (0.8-4.8); Lymphocytes % 23.6 %; Mean Corpuscular HGB Conc 32.6 g/dL (30.0-36.0); Mean Corpuscular Hemoglobin 29.9 pg (28.0-34.0); Mean Corpuscular Volume 91.9 fl (81-99); Mean Platelet Volume 9.9 fL (7.4-10.4); Monocytes # 0.9 10^3/uL (0.2-0.9); Monocytes % 9.2 %; Neutrophils # 5.16 10^3/uL (1.8-7.7); Neutrophils % 56.1 %; Nucleated Red Blood Cells % 0 %; Platelet Count 212 10^3/cmm (130-400); Red Blood Count 4.21 10^6/uL (4.1-5.3); Red Cell Distribution Width 12.9 % (12.1-15.1); White Blood Count 9.2 10^3/uL (4.0-10.0)
[2021-08-29 08:03] LABS: Bilirubin Urine Neg (Negative); Blood Urine Neg (Negative); Glucose Urine UA Norm (Normal); Ketones Urine Negative (Negative); Leukocyte Esterase Urine Negative (Negative); Nitrate Urine Negative (Negative); Protein Urine Neg (Negative); Urine Appearance Clear (CLEAR); Urine Color Yellow (Yellow); Urobilinogen Urine Norm (Negative); pH Urine 7 (5-7)
[2021-08-29 08:15] LABS: Alanine Aminotransferase 16 U/L (0-33); Albumin Level 4.5 g/dL (3.5-5.2); Alkaline Phosphatase 118 IU/L (35-105); Aspartate Amino Transferase 26 U/L (0-32); Blood Urea Nitrogen 19 mg/dL (8-23); Carbon Dioxide 22 mmol/L (22-29); Chloride 99 mmol/L (98-107); Globulin 2.6 g/dL (1.3-4.6); Glucose 127 mg/dL (65-115); Magnesium 1.8 mg/dL (1.7-2.3); Osmolality Calculated 280 mOsm/kg (285-295); Sodium 133 mmol/L (136-145); Total Bilirubin 0.2 mg/dL (0.15-1.2); Total Protein 7.1 g/dL (6.6-8.7)
[2021-08-29 08:31] LABS: Anion Gap 15.6 (5-19); Potassium 3.6 mmol/L (3.5-5.1)
--- NOTE | 2021-08-29 08:55 | W.ED.FEMALGU ---
HPI - Female Genitourinary General: Chief complaint: Abdominal Pain Stated complaint: constipation Time Seen by Provider: 08/29/21 06:52 History of Present Illness: 86-year-old female complaining of urinary retention and constipation. She has had similar symptoms in the past, required indwelling Kaba catheter for several months back in 2020 due to acute urinary tract infection and retention. Denies any fever, dysuria at this time. She has rectal pressure and fequent urges to have a BM, but has been unable to. No rectal pain, bleeding, nausea, vomiting. Review of Systems General: Reports: 10 or more systems reviewed and unremarkable except in HPI and below PFSH ED PFSH: Medical History Acute urinary retention Anxiety disorder -anxiolytics PRN, resume clonazepam on d/c CVA (cerebral vascular accident) Encounter for long-term (current) use of NSAIDs Encounter for narcotic contract discussion Episode of transient neurologic symptoms GERD (gastroesophageal reflux disease) -on PPI HTN (hypertension) -hypertensive today; continue to monitor vital signs -on HCTZ 25 mg daily, may need this titrated if continued hypertension Hypothyroidism -TSH-low (0.11) -on levothyroxine, recently adjusted by PCP Memory loss Osteoarthritis Recurrent UTI UTI (urinary tract infection) -has been on antibiotic treatment with macrobid for UTI (day 03/21) -UA here not indicative of infection Surgical History H/O laminectomy H/O: hysterectomy History of appendectomy History of back surgery History of hip replacement S/P left knee arthroscopy Family History Son Alcohol abuse Psychiatric illness Bipolar disorder Mother Cancer Social History Smoking and tobacco status: former smoker Quit status (tobacco): has quit using tobacco Former quit date comment: Remote history Second hand smoke exposure: No Alcohol intake: never Household members: spouse Marital status: Current occupational status: retired History of recent travel: No Physical Exam Const: COMMON NORMALS: no acute distress, patient oriented x3, no limitations, healthy appearing, alert and well nourished HENMT: COMMON NORMALS: normocephalic HEAD & SCALP: normal to inspection and normocephalic Eye: COMMON NORMALS: Equal, round and reactive pupils present, EOMs intact bilaterally and no scleral icterus PUPIL: Yes Equal, round and reactive pupils present Neck/C-Spine: COMMON NORMALS: full ROM Resp: COMMON NORMALS: normal respiratory effort, No retractions and No use of accessory muscles Cardio: COMMON NORMALS: regular rate and regular rhythm RATE: regular rate RHYTHM: regular rhythm GI: COMMON NORMALS: Soft to palpation INSPECTION: Yes abdominal distension PALPATION: Yes Soft to palpation and Yes Bladder palpation abnormal Details: distended : BLADDER/KIDNEY EXAM: Yes Bladder palpation abnormal Neuro: COMMON NORMALS: patient oriented x3 SENSORIUM/ORIENTATION: Yes alert Psych: COMMON NORMALS: mental status grossly normal, Normal thought process present, cooperative, normal affect and speech normal SPEECH: Yes normal speech THOUGHT PROCESS: Normal thought process present Skin: COMMON NORMALS: no rashes or lesions noted GENERAL SKIN EXAM: no rashes or lesions noted Course Vital Signs: Vital signs: Vital Signs Temperature 97.9 F 08/29/21 06:46 Pulse Rate 83 08/29/21 06:46 Respiratory Rate 16 08/29/21 06:46 Blood Pressure 113/67 08/29/21 06:46 Pulse Oximetry 94 08/29/21 06:46 [facility] - Female Medical Decision Making 86-year-old female with acute urinary retention and constipation. UA does not suggest acute urinary tract infection. Lab work is stable. Abdominal x-ray shows constipation without any obstructive pattern. Indwelling Kaba catheter placed, start bowel regimen. TSH wnl, checked last month. Differential Diagnosis Likely constipation, diverticulitis and small bowel obstruction Medical Records I reviewed the patient's medical records. Lab Data I reviewed the patient's lab results. : 08/29/21 07:50 08/29/21 07:50 Radiology Impressions KUB X-Ray 08/29/21 07:03 IMPRESSION: Imaging findings of constipation. Laboratory Results WBC 9.2 10^3/uL (4.0-10.0) 08/29/21 07:50 RBC 4.21 10^6/uL (4.1-5.3) 08/29/21 07:50 Hgb 12.6 g/dL (11.5-15.3) 08/29/21 07:50 Hct 38.7 % (37.0-47.0) 08/29/21 07:50 MCV 91.9 fl (81-99) 08/29/21 07:50 MCH 29.9 pg (28.0-34.0) 08/29/21 07:50 MCHC 32.6 g/dL (30.0-36.0) 08/29/21 07:50 RDW 12.9 % (12.1-15.1) 08/29/21 07:50 Plt Count 212 10^3/cmm (130-400) 08/29/21 07:50 MPV 9.9 fL (7.4-10.4) 08/29/21 07:50 Neut % (Auto) 56.1 % 08/29/21 07:50 Lymph % (Auto) 23.6 % 08/29/21 07:50 [place] % (Auto) 9.2 % 08/29/21 07:50 Eos % (Auto) 10.1 % 08/29/21 07:50 Baso % (Auto) 0.8 % 08/29/21 07:50 Neut # (Auto) 5.16 10^3/uL (1.8-7.7) 08/29/21 07:50 Lymph # (Auto) 2.2 10^3/uL (0.8-4.8) 08/29/21 07:50 [place] # (Auto) 0.9 10^3/uL (0.2-0.9) 08/29/21 07:50 Eos # (Auto) 0.9 10^3/uL (0.0-0.8) H 08/29/21 07:50 Baso # (Auto) 0.1 10^3/uL (0.0-0.1) 08/29/21 07:50 Nucleated RBC % (auto) 0 % 08/29/21 07:50 Nucleated RBCs # 0.0 /100WBC 08/29/21 07:50 Sodium 133 mmol/L (136-145) L 08/29/21 07:50 Potassium 3.6 mmol/L (3.5-5.1) 08/29/21 07:50 Chloride 99 mmol/L (98-107) 08/29/21 07:50 Carbon Dioxide 22 mmol/L (22-29) 08/29/21 07:50 Anion Gap 15.6 (5-19) 08/29/21 07:50 BUN 19 mg/dL (8-23) 08/29/21 07:50 Creatinine 0.8 mg/dL (0.5-0.9) 08/29/21 07:50 GFR Calculation Not Reportable 08/29/21 07:50 Glucose 127 mg/dL (65-115) H 08/29/21 07:50 Calculated Osmolality 280 mOsm/kg (285-295) L 08/29/21 07:50 Calcium 10.0 mg/dL (8.5-10.5) 08/29/21 07:50 Magnesium 1.8 mg/dL (1.7-2.3) 08/29/21 07:50 Total Bilirubin 0.2 mg/dL (0.15-1.2) 08/29/21 07:50 AST 26 U/L (0-32) 08/29/21 07:50 ALT 16 U/L (0-33) 08/29/21 07:50 Alkaline Phosphatase 118 IU/L (35-105) H 08/29/21 07:50 Total Protein 7.1 g/dL (6.6-8.7) 08/29/21 07:50 Albumin 4.5 g/dL (3.5-5.2) 08/29/21 07:50 Globulin 2.6 g/dL (1.3-4.6) 08/29/21 07:50 Urine Color Yellow (Yellow) 08/29/21 07:30 Urine Appearance Clear (CLEAR) 08/29/21 07:30 Urine pH 7 (5-7) 08/29/21 07:30 Ur Specific [place] 1.010 (1.005-1.030) 08/29/21 07:30 Urine Protein Neg (Negative) 08/29/21 07:30 Urine Glucose (UA) Norm (Normal) 08/29/21 07:30 Urine Ketones Negative (Negative) 08/29/21 07:30 Urine Blood Neg (Negative) 08/29/21 07:30 Urine Nitrate Negative (Negative) 08/29/21 07:30 Urine Bilirubin Neg (Negative) 08/29/21 07:30 Urine Urobilinogen Norm mg/dL (Negative) 08/29/21 07:30 Ur Leukocyte Esterase Negative (Negative) 08/29/21 07:30 Discharge Plan Discharge Patient Disposition: Home Clinical Impression: Acute urinary retention, Constipation Condition: Stable Prescriptions: New docusate sodium [Colace] 100 mg capsule 300 mg PO DAILY 10 Days Qty: 30 0RF Linzess 145 mcg capsule 145 mcg PO DAILY Qty: 30 0RF No Action hydrochlorothiazide 25 mg tablet 25 mg PO DAILY 0RF omeprazole 20 mg capsule,delayed release(DR/EC) 20 mg PO DAILY 0RF venlafaxine 75 mg tablet 75 mg PO BID 0RF quetiapine 25 mg tablet 25 mg PO TID 0RF fluticasone propionate [Flonase Allergy Relief] 50 mcg/actuation spray,suspension 2 spray INTRANASAL DAILY PRN0RF Rx Instructions: administer into each nostril melatonin 10 mg capsule 10 mg PO DAILY 0RF atorvastatin [Lipitor] 40 mg tablet 40 mg PO DAILY Qty: 30 0RF aspirin [Adult Low Dose Aspirin] 81 mg tablet,delayed release (DR/EC) 81 mg PO DAILY Qty: 30 0RF levothyroxine 50 mcg capsule 50 mcg PO DAILY 0RF methenamine hippurate 1 gram tablet 1 g PO BID Qty: 60 12RF Rx Instructions: Take 1000 mg of vitamin C with each dose of methenamine Gel-One 30 mg/3 mL syringe 30 mg intra-articular ONCE Qty: 3 0RF alfuzosin 10 mg tablet extended release 24 hr 10 mg PO DAILY Qty: 30 12RF Rx Instructions: administer after the same meal each day Miralax 17 gram/dose powder 17 g PO TID Qty: 510 0RF Rx Instructions: Use MiraLAX 3 times a day until good stool result then continue once daily. clonazepam 1 mg tablet 1 mg PO DAILY 0RF Discharge Orders: Discharge ED (Routine); Ordered 08/29/21 Ordered By: Adriana Kim Referrals: Rebekah Nix DO [Primary Care Provider] - Discharge Diet: Usual diet Discharge Activity: Resume usual activity Patient Instructions: Kaba Catheter Care, Constipation (ED) Activity Restrictions/Additional Instructions: Call to schedule follow-up appointment with Dr. Mesa within the next week. Drink plenty of fluids. Return immediately to the ER if you develop a fever, abdominal pain, or any other concerning changes. Coding Level of Care Code ED Electric Powerline Examiner for Page Elder
[2021-08-29 09:44] VITALS: BP 114/61; PULSE 66; RESP 16; TEMP 36.7
== END 2021-08-29 09:45 | disposition home or self-care (01) ==
PROVIDERS: Emergency Provider Family Medicine; PCP Family Medicine
DX: K59.00 Constipation, unspecified (principal); R33.9 Retention of urine, unspecified; Z79.82 Long term (current) use of aspirin; Z86.73 Personal history of transient ischemic attack (TIA), and cerebral infarction without residual deficits; I10 Essential (primary) hypertension; Z87.440 Personal history of urinary (tract) infections; Z87.891 Personal history of nicotine dependence
CPT/HCPCS: 51701; 51702; 74018; 80053; 81003; 83735; 85025; 99283

== ENCOUNTER → 2021-10-27 13:21 | Outpatient (BNVA) | payer MEDICARE, SELFPAY | PROVIDERS: PCP Family Medicine; Visit Provider Nurse Practitioner Family | DX: R33.8 Other retention of urine (principal) | CPT/HCPCS: 51798; 99213 ==

== ENCOUNTER → 2021-11-04 13:51 | Outpatient (BNVA) | payer MEDICARE, SELFPAY | PROVIDERS: PCP Family Medicine; Visit Provider Nurse Practitioner Family | DX: R33.8 Other retention of urine (principal) | CPT/HCPCS: 51798; 81003; 99213 ==

== ENCOUNTER → 2021-11-09 15:46 | Outpatient (BNVA) | payer MEDICARE, SELFPAY | PROVIDERS: PCP Family Medicine; Visit Provider Orthopaedic Surgery | DX: M17.0 Bilateral primary osteoarthritis of knee (principal) | CPT/HCPCS: 20610 ==

== ENCOUNTER → 2022-02-08 15:27 | Outpatient (BNVA) | payer MEDICARE, SELFPAY | PROVIDERS: PCP Family Medicine; Visit Provider Urology | DX: R33.8 Other retention of urine (principal); I63.9 Cerebral infarction, unspecified; N39.0 Urinary tract infection, site not specified | CPT/HCPCS: 51798; 99213 ==

== ENCOUNTER → 2022-04-14 14:53 | Outpatient (BNVA) | payer MEDICARE, SELFPAY | PROVIDERS: PCP Family Medicine; Visit Provider Nurse Practitioner Family | DX: M17.0 Bilateral primary osteoarthritis of knee (principal) | CPT/HCPCS: 20610; 99213; J1100; J2795; J3301 ==

== ENCOUNTER 2022-08-19 10:36 | Inpatient (IN) | payer MEDICARE, SELFPAY ==
[2022-08-19] VITALS (8 sets, daily range): BP systolic 115–136; BP diastolic 70–83; PULSE 100–113; RESP 15–20; TEMP 36.5; O2SAT 93–96; BMI 24.0; BMI 25.7
--- NOTE | 2022-08-19 10:40 | XR_ITS ---
WS: [id number] Portable AP upright chest, 08/19/2022 Clinical Data: weakness Comparison: Portable chest, 07/23/2021 Findings: There is a patchy opacity in the right lower lobe consistent with atelectasis, pneumonia an d effusion. There is minimal patchy opacity overlying the lateral aspect of the left diaphragm which could also represent pneumonia and/or atelectasis and small effusion. The heart is slightly enlarged. The aortic arch and descending thoracic aorta show calcification and tortuosity. No pneumothorax is seen. The pulmonary vascularity is not increased. No nodules or masses are present. XR/XR chest 1V portable [id number] Impression: 1. Patchy opacity in right lower lobe which may represent atelectasis, pneumoni a and/or effusion. 2. Minimal patchy opacity overlying left diaphragm which may represent atelecta sis, effusion and/or pneumonia. 3. Atherosclerosis and cardiomegaly.
--- NOTE | 2022-08-19 11:24 | ECG_ITS ---
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 Measurements Intervals United Rate: 107 P: 38 MD: 166 QRS: -44 QRSD: 125 T: 47 QT: 367 QTc: 492 Interpretive Statements SINUS TACHYCARDIA LEFT AXIS DEVIATION [QRS AXIS < -30] RIGHT BUNDLE BRANCH BLOCK [120+ ms QRS DURATION, UPRIGHT V1, 40+ ms S IN I/aVL/V4/V5/V6] MODERATE T-WAVE ABNORMALITY, CONSIDER LATERAL ISCHEMIA [-0.1+ mV T-WAVE IN I/aVL/V5/V6] Compared to ECG 07/23/2021 18:33:40 Left-axis deviation now present T-wave abnormality now present Possible ischemia now present Sinus rhythm no longer present Myocardial infarct finding no longer present Electronically Signed On 08-19-2022 15:14:14 CONVICT GUARD by Villa Causey M.D. [id number]
--- NOTE | 2022-08-19 11:29 | CT_ITS ---
WS: [id number] CTA HEAD AND NECK TECHNIQUE: Contrast enhanced CTA of the head and neck with coronal and sagittal reformatted images an d maximum intensity projection (MIP) images. NASCET criteria utilized. CLINICAL INFORMATION: dizziness COMPARISON: CTa 2019 DLP: 958.[address] scans at [facility] use at least one of these dose optimization techniques: automated e xposure control; mA and/or kV adjustment per patient size (includes targeted exams where dose is matc hed to clinical indication); or iterative reconstruction. FINDINGS: No evidence of intracranial hemorrhage or mass effect. Mild small vessel changes with moder ate parenchymal volume loss. No extra-axial fluid collections. Vascular calcification. No evidence of mass or mass effect. Normal dove-white differentiation. Mastoid air cells well aerated. Mild mucosal thickening in the paranasal sinuses. Small amount of flu id in the RIGHT maxillary sinus and sphenoid sinus. RIGHT: RIGHT common carotid artery is patent. No significant RIGHT ICA stenosis. Tortuous RIGHT cervi julia ICA. RIGHT ICA is patent to the skull base. LEFT: LEFT common carotid artery is patent. No significant LEFT ICA stenosis. LEFT ICA is patent to t he skull base. Codominant and patent vertebral arteries bilaterally are patent. Basilar artery is patent. Normal vas cularity to the BIOMEDICAL SPECIALIST territory bilaterally. Both ICAs are patent at the skull base. Cavernous carotid calcification. Patent anterior communicatin g artery. Normal vascularity to the PETER territory. Normal vascularity to the MCA territory bilaterall y. No proximal flow limiting stenosis. 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 Moderate RIGHT and small LEFT pleural effusions. Moderate spondylitic changes cervical spine. Mild to moderate central canal stenosis due to disc osteophyte complex at C6-C7. CT/CT angio headneck* [id number] IMPRESSION: 1. No flow-limiting intracranial or cervical carotid stenosis. 2. No evidence of intracranial hemorrhage or mass effect. Mild small vessel ch anges. Moderate parenchymal volume loss. 3. Partially visualized moderate RIGHT and small LEFT pleural effusions. 4. Tiny LEFT posterior communicating artery infundibulum or aneurysm unchanged since 2019
--- NOTE | 2022-08-19 11:30 | W.ED.WEAKNES ---
Documented by User: EDITA Patel 08/19/22 16:12 HPI - Weakness General: Chief complaint: Weakness Stated complaint: WEAKNESS Time Seen by Provider: 08/19/22 11:14 History of Present Illness: Patient is a 87-year-old female comes to the ED with generalized weakness. Patient states that for the past several days she has been experiencing dizziness, fatigue, body aches and a dry cough. Patient has a history of hypertension and a stroke 3 years ago. She describes her dizziness as feeling off balance when she is up and moving around and denies any room spinning. She also reports having brief episodes of chest pain over the past couple days but denies any current chest pain. Denies any history of heart failure or any other cardiac history. Associated symptoms: Reports chest pain; Denies chills, dysuria, fever(s), headache(s), nausea or vomiting Review of Systems Const: Reports: body aches and fatigue; Denies: fever(s) or chills Eyes: Denies: change in vision or eye discomfort ENMT: Denies: throat pain, odynophagia, nasal discharge or nasal congestion Card: Reports: chest pain; Denies: palpitations, edema, swelling of feet/ankles, dyspnea on exertion or orthopnea Resp: Reports: dyspnea and non-productive cough; Denies: productive cough GI: Denies: abdominal pain, nausea, vomiting, diarrhea, constipation or hematochezia : Denies: flank pain, dysuria or hematuria Musc: Denies: neck pain, back pain or extremity swelling Skin/Breast: Denies: rash or new lesions Neuro: Reports: dizziness; Denies: headache(s), numbness in extremities or weakness in extremities PFS ED PFSH: Medical History Acute urinary retention Anxiety disorder -anxiolytics PRN, resume clonazepam on d/c CVA (cerebral vascular accident) Encounter for long-term (current) use of NSAIDs Encounter for narcotic contract discussion Episode of transient neurologic symptoms GERD (gastroesophageal reflux disease) -on PPI HTN (hypertension) -hypertensive today; continue to monitor vital signs -on HCTZ 25 mg daily, may need this titrated if continued hypertension Hypothyroidism -TSH-low (0.11) -on levothyroxine, recently adjusted by PCP Memory loss Osteoarthritis Recurrent UTI UTI (urinary tract infection) -has been on antibiotic treatment with macrobid for UTI (day 03/21) -UA here not indicative of infection Surgical History H/O laminectomy H/O: hysterectomy History of appendectomy History of back surgery History of hip replacement S/P left knee arthroscopy Family History Son Alcohol abuse Psychiatric illness Bipolar disorder Mother , at age 91 Cancer Father , at age 42 MVA (motor vehicle accident) Social History Smoking and tobacco status: former smoker Quit status (tobacco): has quit using tobacco Former quit date comment: Remote history Second hand smoke exposure: No Alcohol intake: never Household members: spouse Marital status: Current occupational status: retired Physical Exam Const: COMMON NORMALS: patient oriented x3 and alert GENERAL APPEARANCE: cooperative HENMT: COMMON NORMALS: normocephalic HEAD & SCALP: normocephalic MOUTH: Normal oral and palatal mucosa present THROAT: posterior oropharynx normal and uvula midline Neck/C-Spine: COMMON NORMALS: supple GENERAL: Yes normal visual inspection Resp: COMMON NORMALS: normal respiratory effort, No retractions and No use of accessory muscles AUSCULTATION: diminished lung sounds bilateral in the lower lung [place] Cardio: COMMON NORMALS: regular rate, regular rhythm, S1 normal heart sound present, S2 normal heart sound present, No gallops present (Cardio), No clicks present (Cardio), No murmurs present (Cardio) and Peripheral pulses 2+ throughout RATE: regular rate RHYTHM: regular rhythm HEART SOUNDS: S1 normal heart sound present and S2 normal heart sound present PERIPHERAL PULSES: Peripheral pulses 2+ throughout GI: COMMON NORMALS: Normal to inspection, nondistended, normoactive bowel sounds present, Soft to palpation, non-tender and no masses PALPATION: Yes Soft to palpation : COMMON NORMALS: Yes no CVA tenderness BLADDER/KIDNEY EXAM: Yes no CVA tenderness Back/Pelvis: COMMON NORMALS: no CVA tenderness Extremity: COMMON NORMALS: normal to inspection Neuro: COMMON NORMALS: patient oriented x3 SENSORIUM/ORIENTATION: Yes alert GAIT: Yes Normal gait present Skin: GENERAL SKIN EXAM: dry skin Course Vital Signs: Vital signs: Vital Signs Temperature 98.5 F 08/21/22 04:00 Pulse Rate 106 H 08/21/22 04:00 Respiratory Rate 16 08/21/22 04:00 Blood Pressure 135/82 08/21/22 04:00 Pulse Oximetry 94 08/21/22 04:00 Oxygen Delivery Me thod 08/20/22 19:50 MDM - Weakness Medical Decision Making Patient is an 87-year-old female comes to the ED with shortness of breath and cough. Patient has a past medical history of stroke 3 years ago. She was also having episodes of dizziness. Denies any heart failure or any other cardiac history. Vitals are stable. Patient has some diminished lung sounds of her lungs bilaterally. Rest of exam is benign. White blood cell count 10.1 and a creatinine of 1.3. The rest of her CBC and CMP are unremarkable. Baseline troponin 84 and 2-hour troponin was 81. BNP of 5512. Chest x-ray shows patchy opacity in right lower lobe which may represent atelectasis, pneumonia or effusion. Minimal patchy opacity in left lower lung as well. Head neck CTA showed no acute findings. I discussed patient case with Dr. Obrien and her need for admission due to heart failure. Dr. Obrien took over patient care and contacted the hospitalist on-call and patient was admitted. Lab Data I reviewed the patient's lab results. 08/19/22 11:36 08/19/22 11:36 Radiology Impressions Chest X-Ray 08/19/22 10:40 Impression: 1. Patchy opacity in right lower lobe which may represent atelectasis, pneumonia and/or effusion. 2. Minimal patchy opacity overlying left diaphragm which may represent atelectasis, effusion and/or pneumonia. 3. Atherosclerosis and cardiomegaly. Head/Neck CTA 08/19/22 11:29 IMPRESSION: 1. No flow-limiting intracranial or cervical carotid stenosis. 2. No evidence of intracranial hemorrhage or mass effect. Mild small vessel changes. Moderate parenchymal volume loss. 3. Partially visualized moderate RIGHT and small LEFT pleural effusions. 4. Tiny LEFT posterior communicating artery infundibulum or aneurysm unchanged since 2019 Chest CTA 08/20/22 08:03 IMPRESSION: 1. No CTA evidence of pulmonary embolism or thoracic aortic aneurysm. Poor contrast opacification of the thoracic aorta, which limits assessment for thoracic aortic dissection. 2. Medium-sized heterogeneous attenuation pericardial effusion. Recommend correlation with echocardiography. 3. Medium-sized bilateral pleural effusions, right greater than left. There is associated bilateral lung compressive atelectasis, most prominent in the lower lobes. ADDENDUM: 08/20/22 1111 IMPRESSION: 1. Small segmental to subsegmental right upper lobe pulmonary embolus (series 7, images 133-163 and series 8 images 21-22). No other definite segmental pulmonary emboli. No CT evidence of right ventricular strain with normal RV/LV ratio of 0.8. No thoracic aortic aneurysm. Poor contrast opacification of the thoracic aorta, which limits assessment for thoracic aortic dissection. 2. Medium-sized heterogeneous attenuation pericardial effusion. Recommend correlation with echocardiography. 3. Medium-sized bilateral pleural effusions, right greater than left. There is associated bilateral lung compressive atelectasis, most prominent in the lower lobes. ADDENDUM: 08/20/22 1116 THE ADDENDUM CONTAINS FINDINGS THAT MAY BE CRITICAL TO PATIENT CARE. The findings were verbally communicated via telephone conference at 11:14 AM POSTAGE MACHINE OPERATOR on 08/20/2022 with CHELSI CARO. The findings were acknowledged and understood. Laboratory Results WBC 12.7 10^3/uL (4.0-10.0) H 08/20/22 04:42 RBC 4.22 10^6/uL (4.1-5.3) 08/20/22 04:42 Hgb 11.1 g/dL (11.5-15.3) L 08/20/22 04:42 Hct 36.5 % (37.0-47.0) L 08/20/22 04:42 MCV 86.5 fl (81-99) 08/20/22 04:42 MCH 26.3 pg (28.0-34.0) L 08/20/22 04:42 MCHC 30.4 g/dL (30.0-36.0) 08/20/22 04:42 RDW 14.5 % (12.1-15.1) 08/20/22 04:42 Plt Count 321 10^3/cmm (130-400) 08/20/22 04:42 MPV 10.1 fL (7.4-10.4) 08/20/22 04:42 Neut % (Auto) 78.8 % 08/20/22 04:42 Lymph % (Auto) 9.4 % 08/20/22 04:42 [place] % (Auto) 7.8 % 08/20/22 04:42 Eos % (Auto) 2.8 % 08/20/22 04:42 Baso % (Auto) 0.6 % 08/20/22 04:42 Neut # (Auto) 9.98 10^3/uL (1.8-7.7) H 08/20/22 04:42 Lymph # (Auto) 1.2 10^3/uL (0.8-4.8) 08/20/22 04:42 [place] # (Auto) 1.0 10^3/uL (0.2-0.9) H 08/20/22 04:42 Eos # (Auto) 0.4 10^3/uL (0.0-0.8) 08/20/22 04:42 Baso # (Auto) 0.1 10^3/uL (0.0-0.1) 08/20/22 04:42 Nucleated RBC % (auto) 0 % 08/20/22 04:42 Nucleated RBCs # 0.0 /100WBC 08/20/22 04:42 D-Dimer 1.82 ug/mIFEU (0-0.59) H 08/19/22 17:45 Sodium 143 mmol/L (136-145) 08/20/22 04:42 Potassium 4.6 mmol/L (3.5-5.1) 08/20/22 04:42 Chloride 108 mmol/L (98-107) H 08/20/22 04:42 Carbon Dioxide 18 mmol/L (22-29) L 08/20/22 04:42 Anion Gap 21.6 (5-19) H 08/20/22 04:42 BUN 30 mg/dL (8-23) H 08/20/22 04:42 Creatinine 1.2 mg/dL (0.5-0.9) H 08/20/22 04:42 GFR Calculation Not Reportable 08/20/22 04:42 Glucose 196 mg/dL (65-115) H 08/20/22 04:42 Calculated Osmolality 308 mOsm/kg (285-295) H 08/20/22 04:42 Calcium 9.2 mg/dL (8.5-10.5) 08/20/22 04:42 Magnesium 2.3 mg/dL (1.7-2.3) 08/20/22 04:42 Total Bilirubin 0.6 mg/dL (0.15-1.2) 08/19/22 11:36 AST 19 U/L (0-32) 08/19/22 11:36 ALT 11 U/L (0-33) 08/19/22 11:36 Alkaline Phosphatase 106 U/L (35-105) H 08/19/22 11:36 Troponin T Baseline 84 ng/L (0-10) H 08/19/22 11:36 Troponin T 120 Minute 81.31 ng/L (0-10) H 08/19/22 13:38 Delta Troponin T -2.69 ABS# (0-10) L 08/19/22 13:38 Troponin T Hi Sens 6Hr 83.94 ng/L (0-10) H 08/19/22 17:45 Troponin T Hi Sens 6Hr Delta -0.06 ng/L (0-12) L 08/19/22 17:45 NT-Pro-B Natriuret Pep 5512 pg/mL (0-450) H 08/19/22 11:36 Total Protein 6.8 g/dL (6.6-8.7) 08/19/22 11:36 Albumin 3.4 g/dL (3.5-5.2) L 08/19/22 11:36 Globulin 3.4 g/dL (1.3-4.6) 08/19/22 11:36 Procalcitonin 0.10 ng/mL (0-0.5) 08/19/22 17:45 TSH 5.70 uIU/mL (0.27-4.20) H 08/19/22 17:45 Influenza Type A Ag negative (Negative) 08/19/22 11:16 Influenza Type B Ag negative (Negative) 08/19/22 11:16 SARS-CoV-2 Ag (Rapid) negative (Negative) 08/19/22 11:16 Discharge Plan Discharge Patient Disposition: Admitted As Inpatient Admit Provider: Chelsi Caro Clinical Impression: Pneumonia, Acute kidney injury Condition: Stable Sign Out Sign Out Data: Patient Sign Out occurred on 08/19/22 at 15:02. Patient's care was discussed, and care was transferred from to Rosalio Obrien DO. Coding Level of Care Code ED Police Captain Senior for Chg Fwd Documented by User: Rosalio Obrien DO 08/21/22 07:46 HPI - Weakness General: Chief complaint: Weakness Stated complaint: WEAKNESS Time Seen by Provider: 08/19/22 11:14 PFSH ED PFSH: Medical History Acute urinary retention Anxiety disorder -anxiolytics PRN, resume clonazepam on d/c CVA (cerebral vascular accident) Encounter for long-term (current) use of NSAIDs Encounter for narcotic contract discussion Episode of transient neurologic symptoms GERD (gastroesophageal reflux disease) -on PPI HTN (hypertension) -hypertensive today; continue to monitor vital signs -on HCTZ 25 mg daily, may need this titrated if continued hypertension Hypothyroidism -TSH-low (0.11) -on levothyroxine, recently adjusted by PCP Memory loss Osteoarthritis Recurrent UTI UTI (urinary tract infection) -has been on antibiotic treatment with macrobid for UTI (day 03/21) -UA here not indicative of infection Surgical History H/O laminectomy H/O: hysterectomy History of appendectomy History of back surgery History of hip replacement S/P left knee arthroscopy Family History Son Alcohol abuse Psychiatric illness Bipolar disorder Mother , at age 91 Cancer Father , at age 42 MVA (motor vehicle accident) Social History Smoking and tobacco status: former smoker Quit status (tobacco): has quit using tobacco Former quit date comment: Remote history Second hand smoke exposure: No Alcohol intake: never Household members: spouse Marital status: Current occupational status: retired Course Vital Signs: Vital signs: Vital Signs Temperature 98.5 F 08/21/22 04:00 Pulse Rate 106 H 08/21/22 04:00 Respiratory Rate 16 08/21/22 04:00 Blood Pressure 135/82 08/21/22 04:00 Pulse Oximetry 94 08/21/22 04:00 Oxygen Delivery Me thod 08/20/22 19:50 MDM - Weakness Medical Decision Making Patient is an 87-year-old female comes to the ED with shortness of breath and cough. Patient has a past medical history of stroke 3 years ago. She was also having episodes of dizziness. Denies any heart failure or any other cardiac history. Vitals are stable. Patient has some diminished lung sounds of her lungs bilaterally. Rest of exam is benign. White blood cell count 10.1 and a creatinine of 1.3. The rest of her CBC and CMP are unremarkable. Baseline troponin 84 and 2-hour troponin was 81. BNP of 5512. Chest x-ray shows patchy opacity in right lower lobe which may represent atelectasis, pneumonia or effusion. Minimal patchy opacity in left lower lung as well. Head neck CTA showed no acute findings. I discussed patient case with Dr. Obrien and her need for admission due to heart failure. Dr. Obrien took over patient care and contacted the hospitalist on-call and patient was admitted. Patient care handoff received from Jordy Goncalves continuation of ED evaluation. I personally saw and evaluated patient and reperformed husain portions of E/M. Admit for right lower lobe pneumonia, mild acute kidney injury Medical Records I reviewed the patient's medical records. Lab Data 08/19/22 11:36 08/19/22 11:36 Radiology Impressions Chest X-Ray 08/19/22 10:40 Impression: 1. Patchy opacity in right lower lobe which may represent atelectasis, pneumonia and/or effusion. 2. Minimal patchy opacity overlying left diaphragm which may represent atelectasis, effusion and/or pneumonia. 3. Atherosclerosis and cardiomegaly. Head/Neck CTA 08/19/22 11:29 IMPRESSION: 1. No flow-limiting intracranial or cervical carotid stenosis. 2. No evidence of intracranial hemorrhage or mass effect. Mild small vessel changes. Moderate parenchymal volume loss. 3. Partially visualized moderate RIGHT and small LEFT pleural effusions. 4. Tiny LEFT posterior communicating artery infundibulum or aneurysm unchanged since 2019 Chest CTA 08/20/22 08:03 IMPRESSION: 1. No CTA evidence of pulmonary embolism or thoracic aortic aneurysm. Poor contrast opacification of the thoracic aorta, which limits assessment for thoracic aortic dissection. 2. Medium-sized heterogeneous attenuation pericardial effusion. Recommend correlation with echocardiography. 3. Medium-sized bilateral pleural effusions, right greater than left. There is associated bilateral lung compressive atelectasis, most prominent in the lower lobes. ADDENDUM: 08/20/22 1111 IMPRESSION: 1. Small segmental to subsegmental right upper lobe pulmonary embolus (series 7, images 133-163 and series 8 images 21-22). No other definite segmental pulmonary emboli. No CT evidence of right ventricular strain with normal RV/LV ratio of 0.8. No thoracic aortic aneurysm. Poor contrast opacification of the thoracic aorta, which limits assessment for thoracic aortic dissection. 2. Medium-sized heterogeneous attenuation pericardial effusion. Recommend correlation with echocardiography. 3. Medium-sized bilateral pleural effusions, right greater than left. There is associated bilateral lung compressive atelectasis, most prominent in the lower lobes. ADDENDUM: 08/20/22 1116 THE ADDENDUM CONTAINS FINDINGS THAT MAY BE CRITICAL TO PATIENT CARE. The findings were verbally communicated via telephone conference at 11:14 AM POSTAGE MACHINE OPERATOR on 08/20/2022 with CHELSI CARO. The findings were acknowledged and understood. Laboratory Results WBC 12.7 10^3/uL (4.0-10.0) H 08/20/22 04:42 RBC 4.22 10^6/uL (4.1-5.3) 08/20/22 04:42 Hgb 11.1 g/dL (11.5-15.3) L 08/20/22 04:42 Hct 36.5 % (37.0-47.0) L 08/20/22 04:42 MCV 86.5 fl (81-99) 08/20/22 04:42 MCH 26.3 pg (28.0-34.0) L 08/20/22 04:42 MCHC 30.4 g/dL (30.0-36.0) 08/20/22 04:42 RDW 14.5 % (12.1-15.1) 08/20/22 04:42 Plt Count 321 10^3/cmm (130-400) 08/20/22 04:42 MPV 10.1 fL (7.4-10.4) 08/20/22 04:42 Neut % (Auto) 78.8 % 08/20/22 04:42 Lymph % (Auto) 9.4 % 08/20/22 04:42 [place] % (Auto) 7.8 % 08/20/22 04:42 Eos % (Auto) 2.8 % 08/20/22 04:42 Baso % (Auto) 0.6 % 08/20/22 04:42 Neut # (Auto) 9.98 10^3/uL (1.8-7.7) H 08/20/22 04:42 Lymph # (Auto) 1.2 10^3/uL (0.8-4.8) 08/20/22 04:42 [place] # (Auto) 1.0 10^3/uL (0.2-0.9) H 08/20/22 04:42 Eos # (Auto) 0.4 10^3/uL (0.0-0.8) 08/20/22 04:42 Baso # (Auto) 0.1 10^3/uL (0.0-0.1) 08/20/22 04:42 Nucleated RBC % (auto) 0 % 08/20/22 04:42 Nucleated RBCs # 0.0 /100WBC 08/20/22 04:42 D-Dimer 1.82 ug/mIFEU (0-0.59) H 08/19/22 17:45 Sodium 143 mmol/L (136-145) 08/20/22 04:42 Potassium 4.6 mmol/L (3.5-5.1) 08/20/22 04:42 Chloride 108 mmol/L (98-107) H 08/20/22 04:42 Carbon Dioxide 18 mmol/L (22-29) L 08/20/22 04:42 Anion Gap 21.6 (5-19) H 08/20/22 04:42 BUN 30 mg/dL (8-23) H 08/20/22 04:42 Creatinine 1.2 mg/dL (0.5-0.9) H 08/20/22 04:42 GFR Calculation Not Reportable 08/20/22 04:42 Glucose 196 mg/dL (65-115) H 08/20/22 04:42 Calculated Osmolality 308 mOsm/kg (285-295) H 08/20/22 04:42 Calcium 9.2 mg/dL (8.5-10.5) 08/20/22 04:42 Magnesium 2.3 mg/dL (1.7-2.3) 08/20/22 04:42 Total Bilirubin 0.6 mg/dL (0.15-1.2) 08/19/22 11:36 AST 19 U/L (0-32) 08/19/22 11:36 ALT 11 U/L (0-33) 08/19/22 11:36 Alkaline Phosphatase 106 U/L (35-105) H 08/19/22 11:36 Troponin T Baseline 84 ng/L (0-10) H 08/19/22 11:36 Troponin T 120 Minute 81.31 ng/L (0-10) H 08/19/22 13:38 Delta Troponin T -2.69 ABS# (0-10) L 08/19/22 13:38 Troponin T Hi Sens 6Hr 83.94 ng/L (0-10) H 08/19/22 17:45 Troponin T Hi Sens 6Hr Delta -0.06 ng/L (0-12) L 08/19/22 17:45 NT-Pro-B Natriuret Pep 5512 pg/mL (0-450) H 08/19/22 11:36 Total Protein 6.8 g/dL (6.6-8.7) 08/19/22 11:36 Albumin 3.4 g/dL (3.5-5.2) L 08/19/22 11:36 Globulin 3.4 g/dL (1.3-4.6) 08/19/22 11:36 Procalcitonin 0.10 ng/mL (0-0.5) 08/19/22 17:45 TSH 5.70 uIU/mL (0.27-4.20) H 08/19/22 17:45 Influenza Type A Ag negative (Negative) 08/19/22 11:16 Influenza Type B Ag negative (Negative) 08/19/22 11:16 SARS-CoV-2 Ag (Rapid) negative (Negative) 08/19/22 11:16 Discharge Plan Discharge Patient Disposition: Admitted As Inpatient Admit Provider: Chelsi Caro Clinical Impression: Pneumonia, Acute kidney injury Condition: Stable Sign Out Sign Out Data: Patient Sign Out occurred on 08/19/22 at 15:02. Patient's care was discussed, and care was transferred from to Rosalio Obrien DO. Coding Level of Care Code ED Police Captain Senior for Page Elder
[2022-08-19 11:41] LABS: SARS Covid-2 Antigen negative (Negative)
[2022-08-19 11:42] LABS: Influenza A by IFA negative (Negative); Influenza B by IFA negative (Negative)
[2022-08-19] MEDS: iohexol 350 mg/mL 500 mL Btl (per mL) IV (11:49)
[2022-08-19 11:52] LABS: Basophils # 0.1 10^3/uL (0.0-0.1); Basophils % 0.9 %; Eosinophils # 0.3 10^3/uL (0.0-0.8); Eosinophils % 3.2 %; Hematocrit 37.5 % (37.0-47.0); Hemoglobin 11.5 g/dL (11.5-15.3); Lymphocytes # 1.5 10^3/uL (0.8-4.8); Lymphocytes % 14.9 %; Mean Corpuscular HGB Conc 30.7 g/dL (30.0-36.0); Mean Corpuscular Hemoglobin 26.5 pg (28.0-34.0); Mean Corpuscular Volume 86.4 fl (81-99); Mean Platelet Volume 9.7 fL (7.4-10.4); Monocytes # 0.8 10^3/uL (0.2-0.9); Monocytes % 8.1 %; Neutrophils # 7.31 10^3/uL (1.8-7.7); Neutrophils % 72.3 %; Nucleated Red Blood Cells % 0 %; Platelet Count 321 10^3/cmm (130-400); Red Blood Count 4.34 10^6/uL (4.1-5.3); Red Cell Distribution Width 14.4 % (12.1-15.1); White Blood Count 10.1 10^3/uL (4.0-10.0)
[2022-08-19 12:16] LABS: Troponin(5th) Baseline 84 ng/L (0-10)
[2022-08-19 12:25] LABS: Alanine Aminotransferase 11 U/L (0-33); Albumin Level 3.4 g/dL (3.5-5.2); Alkaline Phosphatase 106 U/L (35-105); Anion Gap 19.9 (5-19); Aspartate Amino Transferase 19 U/L (0-32); Blood Urea Nitrogen 33 mg/dL (8-23); Calcium 9.6 mg/dL (8.5-10.5); Carbon Dioxide 19 mmol/L (22-29); Chloride 105 mmol/L (98-107); Globulin 3.4 g/dL (1.3-4.6); Glucose 158 mg/dL (65-115); Osmolality Calculated 301 mOsm/kg (285-295); Potassium 3.9 mmol/L (3.5-5.1); Sodium 140 mmol/L (136-145); Total Bilirubin 0.6 mg/dL (0.15-1.2); Total Protein 6.8 g/dL (6.6-8.7)
[2022-08-19 12:53] LABS: NT Pro B Type Natriuretic Pept 5512 pg/mL (0-450)
[2022-08-19] MEDS: ipratropium-albuterol 3 mL Neb INHALATION (13:03)
[2022-08-19] MEDS: sodium chloride 0.9% 500 ML 999 ML IV (13:11)
[2022-08-19 14:16] LABS: Troponin 5 2HR 81.31 ng/L (0-10)
[2022-08-19 14:20] LABS: Troponin 5 2HR Delta -2.69 ABS# (0-10)
--- NOTE | 2022-08-19 14:45 | ECG_ITS ---
[facility] Test Date: 2022-08-19 Pat Name: Mel Ferrara Department: Room: Gender: Female Conference Concierge: : 1935 Requested By: Jordy Goncalves Order Number: [id number] Liliana MD: Villa Causey M.D. Measurements Intervals [place] Rate: 108 P: 58 MD: 175 QRS: -57 QRSD: 119 T: 34 QT: 367 QTc: 493 Interpretive Statements SINUS TACHYCARDIA LOW QRS VOLTAGE [QRS DEFLECTION < 0.5/1.0 mV IN LIMB/CHEST LEADS] RIGHT BUNDLE BRANCH BLOCK [120+ ms QRS DURATION, UPRIGHT V1, 40+ ms S IN I/aVL/V4/V5/V6] LEFT ANTERIOR FASCICULAR BLOCK [QRS AXIS <= -45, QR IN I, RS IN II] INFERIOR MYOCARDIAL INFARCTION , PROBABLY OLD [40+ ms Q WAVE AND/OR ST/T ABNORMALITY IN II/aVF] Compared to ECG 08/19/2022 11:24:23 Low QRS voltage now present Left anterior fascicular block now present Myocardial infarct finding now present Left-axis deviation no longer present T-wave abnormality no longer present Possible ischemia no longer present Electronically Signed On 08-19-2022 15:19:16 STAFF MECHANICAL ENGINEER by Villa Causey M.D. [id number]
[2022-08-19] MEDS: lanolin oint 7 gm 1 APPLIC TOPICAL (15:33)
--- NOTE | 2022-08-19 16:13 | PM.HP ---
Providers/Chief Complaint Primary Care Provider: Rebekah Nix DO Chief Complaint: WEAKNESS History of Present Illness Mel Ferrara is a 87 year old female sent to the hospital chief complaint generalized weakness and fatigue. She has been experiencing symptoms for last few days, she has not noticed any fever she is endorsing nonproductive cough, shortness of breath on minimal activities, she does not use oxygen at baseline, lives with her , she is DNR/DNI In the ER she has been diagnosed with right lower lobe pneumonia, Patient is extremely lethargic and fatigued Loo TYSON creatinine 1.3 looks dehydrated She has not noticed any diarrhea, UTI, febrile events, is endorsing chest pain to deep inspiration She also endorsing dizziness while changing head position in her bed She described her dizziness as she is floating in about Review of Systems Const: Reports: fatigue and malaise; Denies: fever(s) Eyes: Denies: change in vision ENMT: Denies: throat pain Card: Denies: chest pain Resp: Reports: dyspnea GI: Denies: abdominal pain : Denies: flank pain Musc: Denies: neck pain Skin/Breast: Denies: rash Neuro: Denies: headache(s) Psych: Denies: anxiety Endo: Denies: polyuria Estiven/Lymph: Denies: easy bruising All/Imm: Denies: urticaria Medications/Allergies Home Medications Medication Instructions Recorded Confirmed Last Taken Type aspirin 81 mg tablet,delayed 81 mg PO DAILY #30 tabs 12/02/19 08/19/22 08/18/22 Rx release (Adult Low Dose Aspirin) atorvastatin 40 mg tablet (Lipitor) 40 mg PO DAILY #30 tabs 12/02/19 08/19/22 08/18/22 Rx clonazepam 1 mg tablet 1 mg PO DAILY 12/02/19 08/19/22 08/18/22 History fluticasone propionate 50 2 spray intranasal DAILY PRN 12/02/19 08/19/22 08/18/22 History mcg/actuation nasal Allergy Symptoms spray,suspension (Flonase Allergy Relief) melatonin 10 mg capsule 10 mg PO DAILY 12/02/19 08/19/22 08/18/22 History omeprazole 20 mg capsule,delayed 20 mg PO DAILY 12/02/19 08/19/22 08/18/22 History release linaclotide 145 mcg capsule 145 mcg PO DAILY #30 caps 08/29/21 08/19/22 08/18/22 Rx (Linzess) ascorbic acid (vitamin C) 1,000 mg 1 g PO DAILY 09/07/21 08/19/22 08/18/22 History tablet alfuzosin 10 mg tablet,extended See Rx Instructions .Route 11/11/21 08/19/22 08/18/22 Rx release 24 hr .COMPLEX #90 tabs docusate sodium 100 mg capsule 100 mg PO DAILY 02/08/22 08/19/22 08/18/22 History (Colace) methenamine hippurate 1 gram tablet See Rx Instructions .Route 02/08/22 08/19/22 08/18/22 Rx .COMPLEX #60 tabs escitalopram oxalate 20 mg tablet 20 mg PO DAILY 08/19/22 08/19/22 Unknown History levothyroxine 50 mcg tablet 50 mcg PO DAILY 08/19/22 08/19/22 08/18/22 History meclizine 12.5 mg tablet 12.5 mg PO Q8H PRN Dizziness 08/19/22 08/19/22 Unknown History quetiapine 50 mg tablet 50 mg PO BID 08/19/22 08/19/22 08/18/22 History Allergies Allergy/AdvReac Type Severity Reaction Status Date / Time Penicillins Allergy Unknown ALGY-Rash Verified 08/19/22 15:05 Sulfa (Sulfonamide Allergy Unknown ALGY-Hives Verified 08/19/22 15:05 Antibiotics) PFSH Acute PFSH: Medical History (Updated 08/19/22 @ 16:57 by Mikki Higgins MD) Acute urinary retention Anxiety disorder -anxiolytics PRN, resume clonazepam on d/c CVA (cerebral vascular accident) Encounter for long-term (current) use of NSAIDs Encounter for narcotic contract discussion Episode of transient neurologic symptoms GERD (gastroesophageal reflux disease) -on PPI HTN (hypertension) -hypertensive today; continue to monitor vital signs -on HCTZ 25 mg daily, may need this titrated if continued hypertension Hypothyroidism -TSH-low (0.11) -on levothyroxine, recently adjusted by PCP Memory loss Osteoarthritis Recurrent UTI UTI (urinary tract infection) -has been on antibiotic treatment with macrobid for UTI (day 03/21) -UA here not indicative of infection Surgical History H/O laminectomy H/O: hysterectomy History of appendectomy History of back surgery History of hip replacement S/P left knee arthroscopy Family History Son Alcohol abuse Psychiatric illness Bipolar disorder Mother , at age 91 Cancer Father , at age 42 MVA (motor vehicle accident) Social History Smoking and tobacco status: former smoker Quit status (tobacco): has quit using tobacco Former quit date comment: Remote history Second hand smoke exposure: No Alcohol intake: never Household members: spouse Marital status: Current occupational status: retired Vitals/I&O/Wt Last Vital Signs Pulse 104 H 08/19/22 14:01 Resp 17 08/19/22 14:01 BP 125/70 08/19/22 14:01 Pulse Ox 95 08/19/22 14:01 O2 Del Method 08/19/22 14:01 08/19/22 08/19/22 08/19/22 06:59 14:59 22:59 Intake Total 500 / 500 Balance 500 / 500 Weight last 48 hrs Weight 63.503 kg Physical Exam Narrative: Vertical present S1, S2 Hemodynamically stable Currently on room air Clinically looks dry Lower extremity no edema Awake and alert Nonfocal neuro exam Pleasant cooperative Appears stated age he after discharge Acute chest pain Data 08/19/22 11:36 08/19/22 11:36 A&P Assessment and plan (1) Lower extremity weakness: Qualifiers: Laterality: bilateral Qualified Code(s): R29.898 - Other symptoms and signs involving the musculoskeletal system (2) Memory loss: (3) History of back surgery: (4) Pneumonia: Plan Generalized weakness related to pneumonia Community-acquired pneumonia Start ceftriaxone and azithromycin DuoNeb every 4. No active wheezing Not requiring oxygen Requested PT evaluation Check TSH Clinically looks dehydrated Start cardiac diet High BNP without active signs of heart failure EF is preserved as per previous echo We will request echo Start antibiotics Antibiotic discharge over the weekend Her chest pain is pleuritic in nature Troponin trending down EKG without proctopexy for changes Follow-up with echo report Care discussed with the patient she is DNI/DNI Attestations Medical Necessity Statement*: Anticipating discharge within 48 hours Diagnoses Lower extremity weakness R29.898 Laterality: bilateral Memory loss R41.3 History of back surgery Z98.890 Pneumonia J18.9
[2022-08-19] MEDS: cefTRIAXone 1,000 MG in sodium chloride 0.9% (plus) 50 ML 100 MG IV (16:14)
[2022-08-19] MEDS: azithromycin 500 MG in sodium chloride 0.9% 250 ML 250 MG IV (16:50)
[2022-08-19] MEDS: heparin 5,000 unit/mL INJ 1 mL 5000 UNIT SUBCUT (17:51)
--- NOTE | 2022-08-19 18:12 | ECG_ITS ---
[facility] Test Date: 2022-08-19 Pat Name: Mel Ferrara Department: Room: 262 Gender: Female Fisher Eel Spear: : 1935 Requested By: Jordy Goncalves Order Number: [id number] Liliana MD: Musa Bautista M.D. Measurements Intervals [place] Rate: 111 P: 45 [place]: 177 QRS: 90 QRSD: 117 T: -45 QT: 353 QTc: 480 Interpretive Statements SINUS TACHYCARDIA INCOMPLETE RIGHT BUNDLE BRANCH BLOCK [90+ ms QRS DURATION, TERMINAL R IN V1/V2, 40+ ms S IN I/aVL/V4/V5/V6] POSSIBLE LATERAL MYOCARDIAL INFARCTION , OF INDETERMINATE AGE [30 ms Q WAVE IN I/aVL/V5/V6] Compared to ECG 08/19/2022 14:45:04 Incomplete right bundle-branch block now present Right bundle-branch block no longer present Left anterior fascicular block no longer present Myocardial infarct finding still present Electronically Signed On 08-21-2022 23:06:56 CDT by Musa Bautista M.D. [id number]
[2022-08-19 18:26] LABS: D Dimer 1.82 ug/mIFEU (0-0.59)
[2022-08-19] MEDS: quetiapine 25 mg Tablet 50 MG PO (18:41)
[2022-08-19 19:00] LABS: Troponin 5 6HR 83.94 ng/L (0-10); Troponin 5 6HR Delta -0.06 ng/L (0-12)
[2022-08-19] MEDS: CLONazepam 1 mg Tablet PO (23:42)
[2022-08-20] VITALS (8 sets, daily range): BP systolic 106–133; BP diastolic 69–82; PULSE 77–118; RESP 14–35; TEMP 36.4–36.9; O2SAT 92–96
--- NOTE | 2022-08-20 03:47 | PC.NURSE ---
Addendum entered by Lucila Bay RN 08/20/22 04:50: Dr. García ordered straight cath x1. Original Note: Patient attempted to void x2 with no urine output. Bladder scan showed 326 ml. Patient states she has pain and points to pubic/bladder area.
[2022-08-20] MEDS: acetaminophen 500 mg Tablet PO (04:00)
[2022-08-20] MEDS: heparin 5,000 unit/mL INJ 1 mL 5000 UNIT SUBCUT (04:00)
[2022-08-20 06:00] LABS: Basophils # 0.1 10^3/uL (0.0-0.1); Basophils % 0.6 %; Eosinophils # 0.4 10^3/uL (0.0-0.8); Eosinophils % 2.8 %; Hematocrit 36.5 % (37.0-47.0); Hemoglobin 11.1 g/dL (11.5-15.3); Lymphocytes # 1.2 10^3/uL (0.8-4.8); Lymphocytes % 9.4 %; Mean Corpuscular HGB Conc 30.4 g/dL (30.0-36.0); Mean Corpuscular Hemoglobin 26.3 pg (28.0-34.0); Mean Corpuscular Volume 86.5 fl (81-99); Mean Platelet Volume 10.1 fL (7.4-10.4); Monocytes % 7.8 %; Neutrophils # 9.98 10^3/uL (1.8-7.7); Neutrophils % 78.8 %; Nucleated Red Blood Cells % 0 %; Platelet Count 321 10^3/cmm (130-400); Red Blood Count 4.22 10^6/uL (4.1-5.3); Red Cell Distribution Width 14.5 % (12.1-15.1); White Blood Count 12.7 10^3/uL (4.0-10.0)
--- NOTE | 2022-08-20 06:00 | USCV_ITS ---
Mel Ferrara Age: 87 Gender: F : 1935 Exam Date: 08/20/2022 10:55 Ordering Phys: Rosalio Obrien DO Technologist: KARLENE Exam Location: [facility] [place] Indication: chf BP: / HR: 99 Rhythm: Sinus Technical Quality: Adequate MEASUREMENTS (Male / Female) Normal Values 2D ECHO LVOT Diameter 2.0 cm LV Ejection Fraction MOD 2C 46.2 % LV Ejection Fraction 2C AL 46.4 % LA Diameter 3.1 cm IVC Diameter 2.1 cm M-MODE Aortic Annulus Diameter 2.8 cm LA Ao Ratio MM 1.2 MV E Point Septal Separation 0.9 cm DOPPLER AV Peak Velocity 123.0 cm/s LVOT Peak Velocity 100.0 cm/s AV Area Cont Eq vti 2.3 cm squared AV Area Cont Eq pk 2.5 cm squared MV Area PHT 4.9 cm squared Mitral E to A Ratio 0.5 MV E' Velocity 34.0 cm/s Mitral E to MV E' Ratio 12.9 Mitral E to LV E' Lateral Ratio 12.4 Mitral E to LV E' Septal Ratio 13.8 TV Peak E Velocity 57.0 cm/s FINDINGS Left Ventricle The LV apex appears to be dilated with severe hypokinesia. Hypoechoic area in the apical region may suggest thrombus. LV ejection fraction around 45%.Grade I/IV diastolic dysfunction (abnormal relaxation filling pattern), normal to mildly elevated filling pressures. Right Ventricle Possibly of normal size and ejection fraction Right Atrium Possibly of normal side Left Atrium Possibly of normal size Mitral Valve No gross abnormalities noted Aortic Valve No gross abnormalities noted Tricuspid Valve No gross abnormalities noted Pulmonic Valve Pulmonic valve not well visualized. Pericardium Mild to moderate echo-free space anteriorly and around the apex. Echodensities in the visceral pericardium suggesting exudative effusion Aorta Aorta not well visualized. IVC Normal inferior vena cava. CONCLUSIONS The LV apex appears to be dilated with severe hypokinesia. Hypoechoic area in the apical region may suggest thrombus. LV ejection fraction around 45%.Grade I/IV diastolic dysfunction (abnormal relaxation filling pattern), normal to mildly elevated filling pressures. Mild to moderate echo-free space anteriorly and around the apex, suggesting pericardial effusion. Echodensities in the visceral pericardium suggesting exudative effusion. Technically somewhat difficult study Consider contrast echo to better evaluate the LV apex/rule out thrombus Compared to the previous study from 10/31/2019 the abnormality of the LV apex and the pericardial effusion are new. Dr.R. Jaimes was informed about this finding Dr Musa Bautista MD [facility] (Electronically Signed) Final Date: 20 August 2022 20:02 S
[2022-08-20 06:23] LABS: Anion Gap 21.6 (5-19); Blood Urea Nitrogen 30 mg/dL (8-23); Calcium 9.2 mg/dL (8.5-10.5); Carbon Dioxide 18 mmol/L (22-29); Chloride 108 mmol/L (98-107); Glucose 196 mg/dL (65-115); Magnesium 2.3 mg/dL (1.7-2.3); Osmolality Calculated 308 mOsm/kg (285-295); Potassium 4.6 mmol/L (3.5-5.1); Sodium 143 mmol/L (136-145)
--- NOTE | 2022-08-20 08:03 | P.PN_ITS ---
Subjective Subjective: We will request CTA High D-dimer Overnight events Patient is tachycardic Hemodynamic stable Currently on room air Not noticing new events Still fatigued and lethargic Vitals/I&O/Wt Last Vital Signs Temp 98.0 F 08/20/22 04:00 Pulse 116 H 08/20/22 06:00 Resp 35 H 08/20/22 04:00 BP 106/69 08/20/22 04:00 Pulse Ox 93 08/20/22 04:00 O2 Del Method 08/20/22 04:00 08/19/22 08/20/22 08/20/22 22:59 06:59 14:59 Intake Total 300 / 800 240 / 1040 Output Total 300 / 300 Balance 300 / 800 -60 / 740 Weight last 48 hrs Weight 68.175 kg Weight 63.503 kg Physical Exam Narrative: Patient is awake and alert GCS 15 Tachycardic Hemodynamically stable Currently on room air Fatigue lethargic GCS 15 No acute chest pain or shortness of breath No conversational dyspnea Pleasant and cooperative Data 08/20/22 04:42 08/20/22 04:42 A&P Assessment and plan (1) Pneumonia: (2) Memory loss: (3) Tachycardia: Plan Community-acquired pneumonia Tachycardia High D-dimer Generalized weakness Vertigo Requested PT for Arlette's maneuver Continue antibiotics Request CTA chest rule out PE Patient is DNI/DNI Currently on room air Troponin did not trend up, no active chest pain TYSON related to dehydration improved with IV fluid hydration I would empirically cover patient with therapeutic Lovenox for now PT requested might need rehab considering her weakness and fatigue We will call her Attestations Medical Necessity Statement*: Continue medical management Coding Level of Care Code 23432 Moderate MDM includes number and complexity of problems actively addressed during encounter, amount and/or complexity of data reviewed/ordered and described risk of complication, morbidity or mortality of management as docume nted Diagnoses Pneumonia J18.9 Memory loss R41.3 Tachycardia R00.0
--- NOTE | 2022-08-20 08:03 | CTR_ITS ---
PROCEDURE INFORMATION: Exam: CTA Chest With Contrast Exam date and time: 08/20/2022 8:28 AM Age: 87 years old Clinical indication: Dyspnea and other: Weakness; Additional info: Weakness, tachycardia high d-dimer TECHNIQUE: Imaging protocol: Computed tomographic angiography of the chest with contrast. 3D rendering (Not supervised by radiologist): MIP and/or 3D reconstructed images were created by the technologist. Radiation optimization: All CT scans at this facility use at least one of these dose optimization techniques: automated exposure control; mA and/or kV adjustment per patient size (includes targeted exams where dose is matched to clinical indication); or iterative reconstruction. Contrast material: OMNI 350; Contrast volume: 81 ml; Contrast route: INTRAVENOUS (IV); REPORTING DATA: Count of CT and Cardiac NM exams in prior 12 months: This patient has received [address] and 0 known cardiac nuclear medicine studies in the 12 months prior to the current study. COMPARISON: CR XR chest 1V portable [id number] 08/19/2022 10:54 AM RADIATION DOSE METRICS: Total DLP (mGy-cm): 320.24 FINDINGS: Pulmonary arteries: No CT evidence for segmental pulmonary emboli. The main pulmonary arteries and outflow trunk are unremarkable. Aorta: Poor contrast opacification of the thoracic aorta, which limits assessment for thoracic aortic dissection. No thoracic aortic aneurysm. Mild atherosclerotic vascular calcifications. Trachea: The central airway is normal. Lungs: Medium-sized bilateral pleural effusions are seen, right greater than left. There is associated bilateral lung compressive atelectasis, most prominent in the lower lobes. No other regions of consolidation. No interlobular septal thickening or honeycombing seen to suggest interstitial lung disease on CT. Pleural spaces: No pneumothorax. Heart: Medium sized pericardial effusion is seen with heterogeneous attenuation. The Hounsfield units are 28.5 HU. Further assessment may be performed with echocardiography. The the cardiac chamber sizes are not enlarged. Lymph nodes: No enlarged lymph nodes. Bones/joints: No acute osseous abnormalities. Medium-sized degenerative osteophytes and mild degenerative disc disease changes are seen throughout the thoracic spine. Soft tissues: Unremarkable. Other findings: Some increased attenuation is seen in the gallbladder, which likely represents vicarious excretion of contrast, related to recent exam. Fatty atrophic changes of the pancreas. Suspected small sliding type hiatal hernia. CT/CT angio chest PE protcl [id number] IMPRESSION: 1. No CTA evidence of pulmonary embolism or thoracic aortic aneurysm. Poor contrast opacification of the thoracic aorta, which limits assessment for thoracic aortic dissection. 2. Medium-sized heterogeneous attenuation pericardial effusion. Recommend correlation with echocardiography. 3. Medium-sized bilateral pleural effusions, right greater than left. There is associated bilateral lung compressive atelectasis, most prominent in the lower lobes.
[2022-08-20] MEDS: iohexol 350 mg/mL 500 mL Btl (per mL) IV (08:30)
[2022-08-20] MEDS: aspirin 81 mg EC Tablet PO (10:06)
[2022-08-20] MEDS: levothyroxine 50 mcg Tablet PO (10:06)
[2022-08-20] MEDS: enoxaparin 80 mg/0.8 mL Syringe 70 MG SUBCUT ×2 (10:06→19:52)
[2022-08-20] MEDS: pantoprazole DR 40 mg Tablet PO (10:06)
[2022-08-20] MEDS: sennosides-docusate Tablet 1 TAB PO (10:07)
[2022-08-20] MEDS: sodium chloride 0.9% 1,000 ML 75 ML IV ×2 (10:08→21:57)
[2022-08-20] MEDS: cefTRIAXone 1,000 MG in sodium chloride 0.9% (plus) 50 ML 100 MG IV (18:33)
[2022-08-20] MEDS: azithromycin 250 mg Tablet 500 MG PO (18:33)
--- NOTE | 2022-08-20 19:11 | PM.CONSULT ---
Providers/Reason For Consult Consulting Physician/Specialty*: [facility]/urology Reason for Consult*: Urinary retention, inability to pass catheter Requesting Physician: Dr. Higgins Attending Physician: Mikki Higgins MD Primary Care Provider: Rebekah Nix DO History of Present Illness History of Present Illness Mel Ferrara is a 87 year old female known to me for history of recurrent urinary tract infections and a prior history of urinary retention requiring intermittent indwelling Kaba catheter dating back several years. I believe the most she ever had in her bladder at time of retention was about 1.5 L. She was placed on Kaba catheter for recovery and then on ALFUZOSIN and ultimately had recovery of spontaneous voiding with generally low PVRs. Her last office visit was 01/29/2022 and a PVR was 144 cc and she felt that she was doing well. Regarding her recurrent urinary tract infections she had been treated with antibiotics and then later placed on METHENAMINE as a suppressant. She was doing well last visit and scheduled for follow-up in 1 year. Admitted this hospital stay for general weakness, pneumonia and tachycardia. Has required at least 1 in and out catheterization this hospital stay with about 100 cc drained reportedly. Today her urine output has been sparse and bladder scan showed a least a couple 100 cc in her bladder and I was requested to place a catheter after multiple attempts were unsuccessful by the nursing staff. I was consulted by Dr. Higgins for catheter placement. PROCEDURE: Kaba catheter placement, difficult secondary to abnormal anatomy. She was placed in dorsolithotomy position with 2 pillows underneath her buttocks elevating her pelvis. Prepped and draped in usual sterile fashion. External exam revealed small rectocele and the urethral meatus was not readily visible. With rectocele pressed posteriorly the urethral meatus edged distally could be identified. A 16 English coud? catheter tip was then run along the anterior midline vaginal wall and directed toward this area and thankfully the catheter was able to be manipulated into the urethra into the bladder with immediate return of urine. After the catheter was advanced adequately 10 cc were placed in the balloon and the catheter was functioning fine and placed to dependent drainage. Technique and findings were explained to the nursing staff. Recommendations: Use catheter for duration as needed and then discontinue as per routine protocol. Please call if you have any other concerns or questions. Review of Systems Const: Reports: fatigue and other (Weakness) Eyes: Denies: change in vision ENMT: Denies: hoarseness Card: Denies: chest pain Resp: Denies: dyspnea GI: Denies: abdominal pain or vomiting : Reports: difficulty voiding; Denies: dysuria Musc: Reports: joint pain; Denies: joint redness Skin/Breast: Denies: rash Neuro: Denies: behavioral changes or Slurred speech present Endo: Denies: flushing Estiven/Lymph: Denies: easy bleeding or enlarged lymph nodes All/Imm: Denies: acute wheezing Medications/Allergies Home Medications Medication Instructions Recorded Confirmed Last Taken Type aspirin 81 mg tablet,delayed 81 mg PO DAILY #30 tabs 12/02/19 08/19/22 08/18/22 Rx release (Adult Low Dose Aspirin) atorvastatin 40 mg tablet (Lipitor) 40 mg PO DAILY #30 tabs 12/02/19 08/19/22 08/18/22 Rx clonazepam 1 mg tablet 1 mg PO DAILY 12/02/19 08/19/22 08/18/22 History fluticasone propionate 50 2 spray intranasal DAILY PRN 12/02/19 08/19/22 08/18/22 History mcg/actuation nasal Allergy Symptoms spray,suspension (Flonase Allergy Relief) melatonin 10 mg capsule 10 mg PO DAILY 12/02/19 08/19/22 08/18/22 History omeprazole 20 mg capsule,delayed 20 mg PO DAILY 12/02/19 08/19/22 08/18/22 History release linaclotide 145 mcg capsule 145 mcg PO DAILY #30 caps 08/29/21 08/19/22 08/18/22 Rx (Linzess) ascorbic acid (vitamin C) 1,000 mg 1 g PO DAILY 09/07/21 08/19/22 08/18/22 History tablet alfuzosin 10 mg tablet,extended See Rx Instructions .Route 11/11/21 08/19/22 08/18/22 Rx release 24 hr .COMPLEX #90 tabs docusate sodium 100 mg capsule 100 mg PO DAILY 02/08/22 08/19/22 08/18/22 History (Colace) methenamine hippurate 1 gram tablet See Rx Instructions .Route 02/08/22 08/19/22 08/18/22 Rx .COMPLEX #60 tabs escitalopram oxalate 20 mg tablet 20 mg PO DAILY 08/19/22 08/19/22 Unknown History levothyroxine 50 mcg tablet 50 mcg PO DAILY 08/19/22 08/19/22 08/18/22 History meclizine 12.5 mg tablet 12.5 mg PO Q8H PRN Dizziness 08/19/22 08/19/22 Unknown History quetiapine 50 mg tablet 50 mg PO BID 08/19/22 08/19/22 08/18/22 History Allergies Allergy/AdvReac Type Severity Reaction Status Date / Time Penicillins Allergy Unknown ALGY-Rash Verified 08/19/22 15:05 Sulfa (Sulfonamide Allergy Unknown ALGY-Hives Verified 08/19/22 15:05 Antibiotics) Current Medications Generic Name Dose Route Start Last Admin Trade Name Freq PRN Reason Stop Dose Admin Acetaminophen 500 mg 08/19/22 17:24 08/20/22 04:00 Acetaminophen 500 Mg Tablet PO 500 mg Q4H PRN Administration fever Aspirin 81 mg 08/20/22 09:00 08/20/22 10:06 Aspirin 81 Mg Ec Tablet PO 81 mg DAILY ASHLEY Administration Azithromycin 500 mg 08/20/22 17:00 08/20/22 18:33 Azithromycin 250 Mg Tablet PO 500 mg DAILY@1700 ASHLEY Administration Protocol Clonazepam 1 mg 08/19/22 23:41 08/19/22 23:42 Clonazepam 1 Mg Tablet PO 1 mg BEDTIME PRN Administration ANXIETY Enoxaparin Sodium 70 mg 08/20/22 08:30 08/20/22 10:06 Enoxaparin 80 Mg/0.8 Ml Syringe SUBCUT 70 mg Q12H ASHLEY Administration Heparin Sodium (Porcine) 5,000 unit 08/19/22 18:00 08/20/22 04:00 Heparin 5,000 Unit/Ml Inj 1 Ml SUBCUT 5,000 unit Q12H ASHLEY Administration Ceftriaxone Sodium 1,000 mg/ 50 mls @ 100 mls/hr 08/20/22 16:00 08/20/22 18:33 Sodium Chloride IV 100 mls/hr Q24H ASHLEY Administration Protocol Sodium Chloride 1,000 mls @ 75 mls/hr 08/20/22 08:15 08/20/22 10:08 Sodium Chloride 0.9% IV 75 mls/hr .[id number] ASHLEY Administration Levothyroxine Sodium 50 mcg 08/20/22 09:00 08/20/22 10:06 Levothyroxine 50 Mcg Tablet PO 50 mcg DAILY ASHLEY Administration Pantoprazole Sodium 40 mg 08/20/22 09:00 08/20/22 10:[address] 40 Mg Tablet PO 40 mg DAILY ASHLEY Administration Quetiapine Fumarate 50 mg 08/19/22 19:00 08/19/22 18:41 Quetiapine 25 Mg Tablet PO 50 mg BID ASHLEY Administration Senna/Docusate Sodium 1 tab 08/20/22 09:00 08/20/22 10:07 Sennosides-Docusate Tablet PO 1 tab DAILY ASHLEY Administration PFSH Acute PFSH: Medical History Acute urinary retention Anxiety disorder -anxiolytics PRN, resume clonazepam on d/c CVA (cerebral vascular accident) Encounter for long-term (current) use of NSAIDs Encounter for narcotic contract discussion Episode of transient neurologic symptoms GERD (gastroesophageal reflux disease) -on PPI HTN (hypertension) -hypertensive today; continue to monitor vital signs -on HCTZ 25 mg daily, may need this titrated if continued hypertension Hypothyroidism -TSH-low (0.11) -on levothyroxine, recently adjusted by PCP Memory loss Osteoarthritis Recurrent UTI UTI (urinary tract infection) -has been on antibiotic treatment with macrobid for UTI (day 03/21) -UA here not indicative of infection Surgical History H/O laminectomy H/O: hysterectomy History of appendectomy History of back surgery History of hip replacement S/P left knee arthroscopy Family History Son Alcohol abuse Psychiatric illness Bipolar disorder Mother , at age 91 Cancer Father , at age 42 MVA (motor vehicle accident) Social History Smoking and tobacco status: former smoker Quit status (tobacco): has quit using tobacco Former quit date comment: Remote history Second hand smoke exposure: No Alcohol intake: never Household members: spouse Marital status: Current occupational status: retired Vitals/I&O/Wt Last Vital Signs Temp 97.9 F 08/20/22 15:34 Pulse 106 H 08/20/22 15:34 Resp 16 08/20/22 08:55 BP 117/74 08/20/22 15:34 Pulse Ox 94 08/20/22 15:34 O2 Del Method 08/20/22 08:55 08/20/22 08/20/22 08/20/22 06:59 14:59 22:59 Intake Total 240 / 1040 630 / 630 240 / 870 Output Total 300 / 300 Balance -60 / 740 630 / 630 240 / 870 Weight last 48 hrs Weight 150 lb 4.8 oz Weight 140 lb Physical Exam Const: COMMON NORMALS: no acute distress, alert and well nourished GENERAL APPEARANCE: well kempt and well developed HENMT: COMMON NORMALS: normocephalic HEAD & SCALP: normocephalic Eye: COMMON NORMALS: no scleral icterus Neck/C-Spine: GENERAL: Yes normal visual inspection Lymph: OTHER: No groin lymphadenopathy Chest: OTHER: Normal chest movements Resp: COMMON NORMALS: normal respiratory effort EFFORT & INSPECTION: Yes able to speak in complete sentences, No labored and No Actively coughing Cardio: COMMON NORMALS: regular rhythm RHYTHM: regular rhythm GI: OTHER: Soft, nontender. Bladder is not palpable : OTHER: External female genitalia with urogenital atrophy. No lesions. No discharge. She does have a rectocele and the urethral meatus is retracted into the vagina anteriorly. No blood. Back/Pelvis: OTHER: No CVA tenderness Extremity: OTHER: Good range of motion Neuro: COMMON NORMALS: no focal motor deficits SENSORIUM/ORIENTATION: Yes alert Psych: APPEARANCE: Yes grossly normal and Yes well kempt ATTITUDE: Yes calm Skin: COMMON NORMALS: no jaundice Data 08/20/22 04:42 08/20/22 04:42 A&P Assessment and plan (1) Acute urinary retention: History of intermittent urinary retention. Difficult catheter placement due to altered anatomy Catheter placed on functioning well. 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
--- NOTE | 2022-08-20 20:26 | P.MISC_ITS ---
Miscellaneous Note Note: Got a call from application support developer on reading echocardiogram there is a concern of LV apical thrombus though study is poor. Patient already on full dose anticoagulation with Lovenox. We will plan for echocardiogram with and without contrast limited to rule out LV apical thrombus.
[2022-08-21] VITALS (9 sets, daily range): BP systolic 114–135; BP diastolic 77–83; PULSE 100–118; RESP 16–18; TEMP 36.3–37.1; O2SAT 91–96
[2022-08-21 05:38] LABS: Basophils # 0.1 10^3/uL (0.0-0.1); Basophils % 0.9 %; Eosinophils # 0.5 10^3/uL (0.0-0.8); Eosinophils % 4.6 %; Hematocrit 38.7 % (37.0-47.0); Hemoglobin 11.5 g/dL (11.5-15.3); Lymphocytes # 1.7 10^3/uL (0.8-4.8); Lymphocytes % 15.8 %; Mean Corpuscular HGB Conc 29.7 g/dL (30.0-36.0); Mean Corpuscular Hemoglobin 26.4 pg (28.0-34.0); Mean Platelet Volume 9.8 fL (7.4-10.4); Monocytes # 0.8 10^3/uL (0.2-0.9); Monocytes % 7.7 %; Neutrophils % 70.2 %; Nucleated Red Blood Cells % 0 %; Platelet Count 304 10^3/cmm (130-400); Red Blood Count 4.35 10^6/uL (4.1-5.3); Red Cell Distribution Width 14.6 % (12.1-15.1); White Blood Count 10.7 10^3/uL (4.0-10.0)
--- NOTE | 2022-08-21 06:00 | USCV_ITS ---
Mel Ferrara Age: 87 Gender: F : 1935 Exam Date: 08/21/2022 11:16 Ordering Phys: Davis Jaimes MD Technologist: KARLENE Exam Location: [facility] – [place] Indication: lv thrombis BP: / HR: Rhythm: Sinus Technical Quality: Adequate MEASUREMENTS (Male / Female) Normal Values FINDINGS Left Ventricle Echo contrast was used to better evaluate the LV apex. There was a filling defect measuring 4.5 x 2.4 cm involving anteroapical, apical lateral and apical septal region-suggesting a thrombus. The LV apex was found to be dilated with a severe diffuse hypokinesia around this region. The LV ejection fraction was around 35 to 40% Right Ventricle Right Atrium Left Atrium Mitral Valve Aortic Valve Tricuspid Valve Pulmonic Valve Pericardium Aorta IVC CONCLUSIONS 1. 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 Large filling defects, suggesting organized thrombus 3. Overall LV ejection fraction around 35 to 40% Suggest cardiac MRI to better evaluate this lesion Dr Musa Bautista MD FACC (Electronically Signed) Final Date: 21 August 2022 17:57 S
[2022-08-21 06:04] LABS: Blood Urea Nitrogen 24 mg/dL (8-23); Calcium 9.1 mg/dL (8.5-10.5); Carbon Dioxide 16 mmol/L (22-29); Chloride 110 mmol/L (98-107); Glucose 142 mg/dL (65-115); Osmolality Calculated 298 mOsm/kg (285-295); Sodium 141 mmol/L (136-145)
--- NOTE | 2022-08-21 07:35 | P.PN_ITS ---
Subjective Subjective: Echo findings reviewed Concern for left apical thrombus PE also detected on CTA She was already anticoagulated yesterday Blood pressure improved Pericardial effusion without hemodynamic instability Dr. Mesa Placed Kaba catheter, she does have rectocele Vitals/I&O/Wt Last Vital Signs Temp 98.5 F 08/21/22 04:00 Pulse 106 H 08/21/22 04:00 Resp 16 08/21/22 04:00 BP 135/82 08/21/22 04:00 Pulse Ox 94 08/21/22 04:00 O2 Del Method 08/20/22 19:50 08/20/22 08/21/22 08/21/22 21:59 06:59 14:59 Intake Total Output Total Balance Weight last 48 hrs Weight 68.175 kg Weight 63.503 kg Physical Exam Narrative: Patient has rectocele status post Kaba catheter placement lethargic Hemodynamically stable GCS 15 AOx3 S1, S2, tachycardia Abdomen soft with bowel sounds Currently patient is doing well on room air Data 08/21/22 05:20 08/21/22 05:20 A&P Assessment and plan (1) Lower extremity weakness: Qualifiers: Laterality: bilateral Qualified Code(s): R29.898 - Other symptoms and signs involving the musculoskeletal system (2) Memory loss: (3) Recurrent UTI: (4) Acute urinary retention: (5) Genital atrophy of female: (6) Difficult Kaba catheter placement: (7) Tachycardia: (8) Pneumonia: (9) Pulmonary embolism: (10) Pericardial effusion: Plan Community-acquired pneumonia Patient is on antibiotics Acute retention related to rectocele Kaba catheter placed Dr. 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
[2022-08-21] MEDS: aspirin 81 mg EC Tablet PO (08:11)
[2022-08-21] MEDS: sennosides-docusate Tablet 1 TAB PO (08:11)
[2022-08-21] MEDS: pantoprazole DR 40 mg Tablet PO (08:11)
[2022-08-21] MEDS: levothyroxine 50 mcg Tablet PO (08:11)
[2022-08-21] MEDS: enoxaparin 80 mg/0.8 mL Syringe 70 MG SUBCUT ×2 (08:11→20:07)
[2022-08-21 11:36] LABS: Glucose Point of Care 192 mg/dL (70-110)
[2022-08-21] MEDS: perflutren protein-a microsphr 0.22 mg/mL SDV 3 mL IV (11:47)
[2022-08-21] MEDS: cefTRIAXone 1,000 MG in sodium chloride 0.9% (plus) 50 ML 100 MG IV (16:33)
[2022-08-21] MEDS: acetaminophen 500 mg Tablet PO (16:35)
[2022-08-21] MEDS: azithromycin 250 mg Tablet 500 MG PO (17:19)
[2022-08-21] MEDS: ALPRAZolam 0.5 mg Tablet PO (20:06)
[2022-08-22] VITALS (11 sets, daily range): BP systolic 104–133; BP diastolic 67–89; PULSE 71–111; RESP 15–17; TEMP 36.3–36.8; O2SAT 91–96
[2022-08-22 04:18] LABS: Basophils # 0.1 10^3/uL (0.0-0.1); Eosinophils # 0.6 10^3/uL (0.0-0.8); Eosinophils % 5.9 %; Hematocrit 39.3 % (37.0-47.0); Hemoglobin 11.6 g/dL (11.5-15.3); Lymphocytes # 1.8 10^3/uL (0.8-4.8); Lymphocytes % 19.8 %; Mean Corpuscular HGB Conc 29.5 g/dL (30.0-36.0); Mean Corpuscular Hemoglobin 26.1 pg (28.0-34.0); Mean Corpuscular Volume 88.5 fl (81-99); Mean Platelet Volume 9.5 fL (7.4-10.4); Monocytes # 0.7 10^3/uL (0.2-0.9); Neutrophils # 5.98 10^3/uL (1.8-7.7); Neutrophils % 64.4 %; Nucleated Red Blood Cells % 0 %; Platelet Count 286 10^3/cmm (130-400); Red Blood Count 4.44 10^6/uL (4.1-5.3); Red Cell Distribution Width 14.6 % (12.1-15.1); White Blood Count 9.3 10^3/uL (4.0-10.0)
[2022-08-22 04:40] LABS: Anion Gap 21.1 (5-19); Blood Urea Nitrogen 22 mg/dL (8-23); Calcium 9.1 mg/dL (8.5-10.5); Carbon Dioxide 16 mmol/L (22-29); Chloride 112 mmol/L (98-107); Glucose 138 mg/dL (65-115); Osmolality Calculated 306 mOsm/kg (285-295); Potassium 4.1 mmol/L (3.5-5.1); Sodium 145 mmol/L (136-145)
--- NOTE | 2022-08-22 07:27 | P.PN_ITS ---
Subjective Subjective: Urology follow-up: Kaba catheter appears to be functioning fine. Urine clear after anticoagulat ion initiated Denies any complaints related to the catheter. Please call if you have any further concerns or questions related to her urologic status Vitals/I&O/Wt Last Vital Signs Temp 97.4 F L 08/22/22 04:00 Pulse 100 08/22/22 05:55 Resp 17 08/22/22 04:00 BP 110/73 08/22/22 04:00 Pulse Ox 94 08/22/22 04:00 O2 Del Method 08/22/22 04:00 08/21/22 08/22/22 08/22/22 22:59 06:59 14:59 Intake Total 50 / 1126.25 Output Total 275 / 275 200 / 200 Balance -225 / 851.25 -200 / -200 Physical Exam 2 Narrative: Alert. No acute distress Good range of motion of neck Abdomen is soft. Bladder nondistended. Urine is clear yellow. Urinary Catheter Management: Kaba: Cath Placed During This Visit: no Reason for Continuing Indwelling Catheter: Acute Urinary Retention or Obstruction Data 08/22/22 04:04 08/22/22 04:04 A&P Assessment and plan (1) Acute urinary retention: (2) Difficult Kaba catheter placement: Attestations Medical Necessity Statement*: See attending Coding Level of Care Code Acute Code for Chg Fwd Diagnoses Acute urinary retention R33.8 Difficult Kaba catheter placement T83.9XXA
[2022-08-22] MEDS: levothyroxine 50 mcg Tablet PO (07:55)
[2022-08-22] MEDS: sennosides-docusate Tablet 1 TAB PO (07:55)
[2022-08-22] MEDS: ALPRAZolam 0.5 mg Tablet PO ×2 (07:55→20:38)
[2022-08-22] MEDS: enoxaparin 80 mg/0.8 mL Syringe 70 MG SUBCUT ×2 (07:55→20:37)
[2022-08-22] MEDS: pantoprazole DR 40 mg Tablet PO (07:55)
[2022-08-22] MEDS: aspirin 81 mg EC Tablet PO (07:55)
[2022-08-22] MEDS: acetaminophen 500 mg Tablet PO ×2 (10:26→15:15)
--- NOTE | 2022-08-22 10:33 | PC.CHAP ---
Pastoral Care Encounter/Spiritual Assessment Type of Contact [] Declined mechanical service representative visit [] Patient/Family/Request visit [] Outpatient visit [] Follow-up visit [] Physician referral [] Code/Alert [x] Routine visit [] Staff referral [] Actively dying [] Patient sleeping [x] Family support [] [] Out of room [] Palliative care [] [] Receiving care in room [] Pre-surgical visit [] Trauma [] Long length of stay [] ICU visit [] Other: Relational/Emotional Strength [x] Patient feels connected with others/family/visitors/staff [] Distress [] Loneliness/isolation [] Abandonment Spirituality of Patient [x] Person of Janis [] Attends Christianity of their Janis [x] Believes in Prayer [] Reads Bible or Jew materials [] There are Spiritual issues to be addressed People Greeter Interventions x[] Prayer [x] Active listening [] Non-anxious presence [] Spiritual/emotional support [] Crisis/trauma care [] Spiritual counseling [] Bereavement support [] Provided bereavement packet [] Provided Bible/devotional materials [] Provided toy/stuffed animal, coloring book to patient or family member [] Provided Communion [] Anointing/Leota [] Salvation [x] Completed spiritual assessment [] Other: Impact on Illness or Injury [] Angry [] Fearful [] Anxious [] Often cries [] Exhaustion [] Unable to work [] Unable to attend taoism [] Unable to walk/stand [] Unable to read [] Unable to drive [] Unable to eat/drink [] Unable to sleep [] Unable to be with family [] Patient intubated [] Other: Summary Time spent with patient 5 min
--- NOTE | 2022-08-22 11:03 | PM.PN ---
Subjective Subjective: Today I discussed all the findings of CTA chest, echo, left ventricle thrombus, PE, with the patient and her Reduced EF, left ventricle thrombus versus mass Patient is stating that she is experiencing panic attacks and frequent bouts of shortness of breath however she has remained on room air After discussion with her and her they have decided to go ahead with palliative care, they are not sure whether they will offer for penitentiary versus home, patient prefers to be with her at home, I will have Dr. Posey talk to the family today to help them make a decision Vitals/I&O/Wt Last Vital Signs Temp 97.8 F 08/22/22 07:38 Pulse 111 H 08/22/22 08:52 Resp 16 08/22/22 08:52 BP 133/89 08/22/22 07:38 Pulse Ox 95 08/22/22 08:52 O2 Del Method 08/22/22 08:52 08/21/22 08/22/22 08/22/22 22:59 06:59 14:59 Intake Total 50 / 1126.25 120 / 120 Output Total 275 / 275 200 / 200 Balance -225 / 851.25 -80 / -80 Physical Exam Narrative: Fatigued and lethargic Dehydrated Currently on room air AOx3 GCS 15 Sickle deconditioning Nonfocal neuro exam Able to comprehend S1, S2 Urinary Catheter Management: Kaba: Cath Placed During This Visit: no Reason for Continuing Indwelling Catheter: Acute Urinary Retention or Obstruction Data 08/22/22 04:04 08/22/22 04:04 A&P Assessment and plan (1) Palliative care status: (2) Lower extremity weakness: Qualifiers: Laterality: bilateral Qualified Code(s): R29.898 - Other symptoms and signs involving the musculoskeletal system (3) Memory loss: (4) History of back surgery: (5) Acute urinary retention: (6) Pneumonia: (7) Tachycardia: (8) Difficult Kaba catheter placement: (9) Genital atrophy of female: (10) Pulmonary embolism: (11) Pericardial effusion: (12) Acute kidney injury: (13) Left ventricular thrombus: Plan Considering left ventricle thrombus, PE and palliative care/DNR/DNI status I would not do Coumadin because patient does not want to get frequent INR checks, will do Eliquis Currently hemodynamically stable Physically deconditioned Previous history of CVA with mild weakness of lower extremities Patient currently is on room air She is experiencing panic attacks I have added Xanax yesterday Patient and both are opting for palliative care We will speak with Dr. 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
[2022-08-22] MEDS: morphine IR 15 mg Tablet PO (17:10)
[2022-08-22] MEDS: cefTRIAXone 1,000 MG in sodium chloride 0.9% (plus) 50 ML 100 MG IV (17:10)
[2022-08-22] MEDS: azithromycin 250 mg Tablet 500 MG PO (17:10)
--- NOTE | 2022-08-22 21:30 | PM.MISC ---
Miscellaneous Note Purpose of Documentation: Consulted for palliative care. Unable to perform virtual consult today/tomorrow. Note: Chart reviewed. 87 yr old F with no known cardiac history presents with CP and SOB, generalized weakness and dizziness. The underlying etiology is large LV thrombus and severe apical hypokinesis. She is improved symptomatically now that she is hospitalized and less mobile. Her worst symptom per Dr. Lyle and nurse Lucila is her usual anxiety. Per RN denies SOB or CP tonight and patient has been sleeping. A/P per palliative care Anxiety- resume her home dose of klonopin 1 mg qam. (I ordered to start in am) If she has further symptoms during the day add second dose of klonopin in evening starting at 0.5 mg. Would like to move away from xanax and continue long acting benzodiazapine in elderly. Since her anxiety is not reportedly worse, I do not think we should add anything else at this time. No pain syndrome No GI complaints Continue current care and plan. Depending on how she does with PT and ambulation will dictate which setting is appropriate. At this time she does not have a terminal diagnosis to qualify for the hospice benefit. We can continue palliative care at home. She would qualify for home health care and still receive palliative services.
[2022-08-23] VITALS (12 sets, daily range): BP systolic 113–131; BP diastolic 69–75; PULSE 111–123; RESP 15–22; TEMP 36.5–37; O2SAT 91–93
[2022-08-23] MEDS: morphine IR 15 mg Tablet PO ×2 (04:22→11:44)
[2022-08-23 05:13] LABS: INR 1.31 (0.8-1.2)
[2022-08-23] MEDS: aspirin 81 mg EC Tablet PO (08:08)
[2022-08-23] MEDS: sennosides-docusate Tablet 1 TAB PO (08:08)
[2022-08-23] MEDS: enoxaparin 80 mg/0.8 mL Syringe 70 MG SUBCUT ×2 (08:08→19:49)
[2022-08-23] MEDS: levothyroxine 50 mcg Tablet PO (08:08)
[2022-08-23] MEDS: pantoprazole DR 40 mg Tablet PO (08:09)
[2022-08-23] MEDS: CLONazepam 1 mg Tablet PO (08:09)
--- NOTE | 2022-08-23 10:41 | PC.SOCIAL ---
IMM Update pg 2 of IMM updated and reviewed w/ patient. Copy provided and Copy dated, initialed and placed in chart.
--- NOTE | 2022-08-23 11:07 | PM.PN ---
Subjective Subjective: Patient remains very anxious and complains of shortness of breath, very restless in the bed Complaining of shortness of breath however she is saturating well on room air Spoke with her and her manager distribution also spoke with the family There is plan in place to discharge her home with home health services tomorrow Dr. Posey will follow along Vitals/I&O/Wt Last Vital Signs Temp 97.7 F 08/23/22 04:00 Pulse 118 H 08/23/22 08:00 Resp 20 H 08/23/22 08:00 BP 131/69 08/23/22 08:00 Pulse Ox 93 08/23/22 08:00 O2 Del Method 08/23/22 08:00 08/22/22 08/23/22 08/23/22 22:59 06:59 14:59 Intake Total 530 / 890 Output Total 300 / 500 Balance 530 / 690 -300 / 390 Physical Exam Narrative: Dehydrated Room air S1, S2 Abdomen soft Lower extremity without swelling Anxious appearing No audible stridor or wheezing Signs of dehydration still present Urinary Catheter Management: Kaba: Cath Placed During This Visit: no Reason for Continuing Indwelling Catheter: Acute Urinary Retention or Obstruction Data 08/22/22 04:04 08/22/22 04:04 A&P Assessment and plan (1) Left ventricular thrombus: (2) Palliative care status: (3) Lower extremity weakness: Qualifiers: Laterality: bilateral Qualified Code(s): R29.898 - Other symptoms and signs involving the musculoskeletal system (4) Memory loss: (5) History of back surgery: (6) Acute urinary retention: (7) Pneumonia: (8) Difficult Kaba catheter placement: (9) Rectocele: Plan Patient and both decided to opt for home health services with palliative care They do not want frequent INR checks hence decided to go with Eliquis Very anxious. Dr. Posey added Klonopin I will continue her therapeutic Lovenox for now Plan to discharge her home with home health tomorrow will transport her I will discontinue Coumadin DNR/DNI On palliative care has been updated We will update Dr. Posey as well Attestations Medical Necessity Statement*: Continue medical management Diagnoses Left ventricular thrombus I51.3 Palliative care status Z51.5 Lower extremity weakness R29.898 Laterality: bilateral Memory loss R41.3 History of back surgery Z98.890 Acute urinary retention R33.8 Pneumonia J18.9 Difficult Kaba catheter placement T83.9XXA Rectocele N81.6
[2022-08-23] MEDS: ALPRAZolam 0.5 mg Tablet PO (19:50)
[2022-08-24] VITALS (8 sets, daily range): BP systolic 110–141; BP diastolic 69–85; PULSE 92–120; RESP 15–22; TEMP 36.3–37.2; O2SAT 87–99
[2022-08-24] MEDS: levoFLOXacin 750 mg Tablet PO (05:21)
[2022-08-24] MEDS: enoxaparin 80 mg/0.8 mL Syringe 70 MG SUBCUT (08:13)
[2022-08-24] MEDS: pantoprazole DR 40 mg Tablet PO (08:13)
[2022-08-24] MEDS: levothyroxine 50 mcg Tablet PO (08:13)
[2022-08-24] MEDS: CLONazepam 1 mg Tablet PO (08:13)
[2022-08-24] MEDS: sennosides-docusate Tablet 1 TAB PO (08:14)
--- NOTE | 2022-08-24 10:19 | P.DS_ITS ---
Discharge Providers Date of Admission: 08/20/22 19:09 Date of Discharge: August 24, 2022 Attending Provider at Admission: Chelsi Caro MD Attending Provider at Discharge: Chelsi Caro MD Primary Care Provider: Rebekah Nix DO Diagnoses at Discharge Discharge Diagnosis (1) Left ventricular thrombus: Status: Acute (2) Palliative care status: Status: Acute (3) Lower extremity weakness: Status: Acute Qualifiers: Laterality: bilateral Qualified Code(s): R29.898 - Other symptoms and signs involving the musculoskeletal system Permanent problem details: -Reports bilateral lower extremity weakness, significantly worse on the left with associated progressive difficulty with ambulation (4) Memory loss: Status: Acute (5) History of back surgery: Status: Acute (6) Acute urinary retention: Status: Acute (7) Pneumonia: Status: Acute (8) Difficult Kaba catheter placement: Status: Acute (9) Rectocele: Status: Acute Reason for Visit Reason for Visit: WEAKNESS Hospital Course Hospital Course 87-year-old female for generalized weakness and fatigue, she was diagnosed with pneumonia at the time of admission, required antibiotics, CT was done because she remained tachycardic, it showed pulmonary embolism, she was anticoagulated with Lovenox, echo showed left ventricular thrombus, multiple family meetings elected, and the patient both decided to pursue home health services with palliative care, Dr. Posey was also consulted who agreed with the plan, patient is extremely weak and lethargic, does not have focal deficits, head and neck CTA did not show any acute stroke related changes, patient is severely deconditioned, very anxious appearing, requiring 2 L of oxygen at the time of discharge, and patient does not want chcf placement for now however considering her weakness she is high risk for readmission and might need chcf placement in the future, considering palliative care patient and her both decided against Coumadin which was recommended for left radical thrombus and PE, she does not want frequent INR checks, agreeable with [facility] for now. Please note her EF is reduced as well to 40%, did not want to pursue any angiogram or further investigation. Physical Exam Narrative: Awake and alert Complaining of pain/hurting all over Currently on 2 L nasal cannula No audible stridor or wheezing Oriented to herself Tachycardic Abdomen soft Lower extremity nonpitting edema Verbally redirectable Able to answer simple questions Urinary Catheter Management: Kaba: Cath Placed During This Visit: no Reason for Continuing Indwelling Catheter: Acute Urinary Retention or Obstruction Discharge Data Studies Completed and Pending Completed Studies During Hospitalization Category Date Time Status CTA PE [CT angio chest PE protcl [id number]] Stat Cat Scan 08/20/22 08:03 Completed CTA head neck [CT angio headneck* [id number]] Stat Cat Scan 08/19/22 11:29 Completed XR chest 1V portable [id number] Stat Exams 08/19/22 10:40 Completed CV. echo complete* [id number] Routine Ultrasound 08/20/22 06:00 Completed CV. echo lmt w/w contras [id number] Routine Ultrasound 08/21/22 06:00 Completed Radiology Impressions Chest X-Ray 08/19/22 10:40 Impression: 1. Patchy opacity in right lower lobe which may represent atelectasis, pneumonia and/or effusion. 2. Minimal patchy opacity overlying left diaphragm which may represent atele ctasis, effusion and/or pneumonia. 3. Atherosclerosis and cardiomegaly. Head/Neck CTA 08/19/22 11:29 IMPRESSION: 1. No flow-limiting intracranial or cervical carotid stenosis. 2. No evidence of intracranial hemorrhage or mass effect. Mild small vessel changes. Moderate parenchymal volume loss. 3. Partially visualized moderate RIGHT and small LEFT pleural effusions. 4. Tiny LEFT posterior communicating artery infundibulum or aneurysm unchanged since 2019 Chest CTA 08/20/22 08:03 IMPRESSION: 1. No CTA evidence of pulmonary embolism or thoracic aortic aneurysm. Poor contrast opacification of the thoracic aorta, which limits assessment for thoracic aortic dissection. 2. Medium-sized heterogeneous attenuation pericardial effusion. Recommend correlation with echocardiography. 3. Medium-sized bilateral pleural effusions, right greater than left. There is associated bilateral lung compressive atelectasis, most prominent in the lower lobes. ADDENDUM: 08/20/22 1111 IMPRESSION: 1. Small segmental to subsegmental right upper lobe pulmonary embolus (series 7, images 133-163 and series 8 images 21-22). No other definite segmental pulmonary emboli. No CT evidence of right ventricular strain with normal RV/LV ratio of 0.8. No thoracic aortic aneurysm. Poor contrast opacification of the thoracic aorta, which limits assessment for thoracic aortic dissection. 2. Medium-sized heterogeneous attenuation pericardial effusion. Recommend correlation with echocardiography. 3. Medium-sized bilateral pleural effusions, right greater than left. There is associated bilateral lung compressive atelectasis, most prominent in the lower lobes. ADDENDUM: 08/20/22 1116 THE ADDENDUM CONTAINS FINDINGS THAT MAY BE CRITICAL TO PATIENT CARE. The findings were verbally communicated via telephone conference at 11:14 AM [employer] on 08/20/2022 with CHELSI CARO. The findings were acknowledged and understood. Laboratory Results WBC 9.3 10^3/uL (4.0-10.0) 08/22/22 04:04 RBC 4.44 10^6/uL (4.1-5.3) 08/22/22 04:04 Hgb 11.6 g/dL (11.5-15.3) 08/22/22 04:04 Hct 39.3 % (37.0-47.0) 08/22/22 04:04 MCV 88.5 fl (81-99) 08/22/22 04:04 MCH 26.1 pg (28.0-34.0) L 08/22/22 04:04 MCHC 29.5 g/dL (30.0-36.0) L 08/22/22 04:04 RDW 14.6 % (12.1-15.1) 08/22/22 04:04 Plt Count 286 10^3/cmm (130-400) 08/22/22 04:04 MPV 9.5 fL (7.4-10.4) 08/22/22 04:04 Neut % (Auto) 64.4 % 08/22/22 04:04 Lymph % (Auto) 19.8 % 08/22/22 04:04 [place] % (Auto) 8.0 % 08/22/22 04:04 Eos % (Auto) 5.9 % 08/22/22 04:04 Baso % (Auto) 1.0 % 08/22/22 04:04 Neut # (Auto) 5.98 10^3/uL (1.8-7.7) 08/22/22 04:04 Lymph # (Auto) 1.8 10^3/uL (0.8-4.8) 08/22/22 04:04 [place] # (Auto) 0.7 10^3/uL (0.2-0.9) 08/22/22 04:04 Eos # (Auto) 0.6 10^3/uL (0.0-0.8) 08/22/22 04:04 Baso # (Auto) 0.1 10^3/uL (0.0-0.1) 08/22/22 04:04 Nucleated RBC % (auto) 0 % 08/22/22 04:04 Nucleated RBCs # 0.0 /100WBC 08/22/22 04:04 PT 16.80 SECONDS (12.1-14.9) H 08/23/22 04:47 INR 1.31 (0.8-1.2) H 08/23/22 04:47 D-Dimer 1.82 ug/mIFEU (0-0.59) H 08/19/22 17:45 Sodium 145 mmol/L (136-145) 08/22/22 04:04 Potassium 4.1 mmol/L (3.5-5.1) 08/22/22 04:04 Chloride 112 mmol/L (98-107) H 08/22/22 04:04 Carbon Dioxide 16 mmol/L (22-29) L 08/22/22 04:04 Anion Gap 21.1 (5-19) H 08/22/22 04:04 BUN 22 mg/dL (8-23) 08/22/22 04:04 Creatinine 1.0 mg/dL (0.5-0.9) H 08/22/22 04:04 GFR Calculation Not Reportable 08/22/22 04:04 Glucose 138 mg/dL (65-115) H 08/22/22 04:04 POC Glucose 192 mg/dL (70-110) H 08/21/22 11:32 Calculated Osmolality 306 mOsm/kg (285-295) H 08/22/22 04:04 Calcium 9.1 mg/dL (8.5-10.5) 08/22/22 04:04 Magnesium 2.3 mg/dL (1.7-2.3) 08/20/22 04:42 Total Bilirubin 0.6 mg/dL (0.15-1.2) 08/19/22 11:36 AST 19 U/L (0-32) 08/19/22 11:36 ALT 11 U/L (0-33) 08/19/22 11:36 Alkaline Phosphatase 106 U/L (35-105) H 08/19/22 11:36 Troponin T Baseline 84 ng/L (0-10) H 08/19/22 11:36 Troponin T 120 Minute 81.31 ng/L (0-10) H 08/19/22 13:38 Delta Troponin T -2.69 ABS# (0-10) L 08/19/22 13:38 Troponin T Hi Sens 6Hr 83.94 ng/L (0-10) H 08/19/22 17:45 Troponin T Hi Sens 6Hr Delta -0.06 ng/L (0-12) L 08/19/22 17:45 NT-Pro-B Natriuret Pep 5512 pg/mL (0-450) H 08/19/22 11:36 Total Protein 6.8 g/dL (6.6-8.7) 08/19/22 11:36 Albumin 3.4 g/dL (3.5-5.2) L 08/19/22 11:36 Globulin 3.4 g/dL (1.3-4.6) 08/19/22 11:36 Procalcitonin 0.10 ng/mL (0-0.5) 08/19/22 17:45 TSH 5.70 uIU/mL (0.27-4.20) H 08/19/22 17:45 Influenza Type A Ag negative (Negative) 08/19/22 11:16 Influenza Type B Ag negative (Negative) 08/19/22 11:16 SARS-CoV-2 Ag (Rapid) negative (Negative) 08/19/22 11:16 Vitals Last Vital Signs Temp 97.5 F L 08/24/22 08:00 Pulse 113 H 08/24/22 08:00 Resp 22 H 08/24/22 08:00 BP 110/76 08/24/22 08:00 Pulse Ox 91 08/24/22 08:00 O2 Del Method 08/24/22 08:00 O2 Flow Rate 2 08/24/22 08:00 Discharge Plan Discharge Patient Disposition: Home Health Service Condition: Stable Prescriptions: New oxycodone-acetaminophen 5-325 mg tablet 1 tab PO Q8H PRN (Reason: pain) Qty: 20 0RF levofloxacin 750 mg Tablet 750 mg PO DAILY@0600 Qty: 5 0RF metoprolol tartrate 25 mg tablet 25 mg PO BID Qty: 60 0RF sennosides-docusate sodium [Stool Softener-Laxative] 8.6-50 mg Tablet 1 tab PO DAILY Qty: 30 0RF Eliquis DVT-PE Treat 30D Start 5 mg (74 tabs) tablets,dose pack See Rx Instructions .ROUTE .COMPLEX Qty: 74 3RF Rx Instructions: orally per package directions 10 mg twice daily for 7 days and then 5 mg twice daily Continued omeprazole 20 mg capsule,delayed release(DR/EC) 20 mg PO DAILY fluticasone propionate [Flonase Allergy Relief] 50 mcg/actuation spray,suspension 2 spray INTRANASAL DAILY PRN (Reason: Allergy Symptoms) Rx Instructions: administer into each nostril melatonin 10 mg capsule 10 mg PO DAILY atorvastatin [Lipitor] 40 mg tablet 40 mg PO DAILY Qty: 30 0RF aspirin [Adult Low Dose Aspirin] 81 mg tablet,delayed release (DR/EC) 81 mg PO DAILY Qty: 30 0RF ascorbic acid (vitamin C) 1,000 mg tablet 1 g PO DAILY docusate sodium [Colace] 100 mg capsule 100 mg PO DAILY alfuzosin 10 mg tablet extended release 24 hr See Rx Instructions .ROUTE .COMPLEX Qty: 90 3RF Dose Instruction: TAKE 1 TABLET BY MOUTH DAILY AFTER THE SAME MEAL Rx Instructions: TAKE 1 TABLET BY MOUTH DAILY AFTER THE SAME MEAL methenamine hippurate 1 gram tablet See Rx Instructions .ROUTE .COMPLEX Qty: 60 12RF Dose Instruction: TAKE 1 TABLET BY MOUTH TWICE DAILY. TAKE WITH 1000 MG OF VITAMINC. Rx Instructions: TAKE 1 TABLET BY MOUTH TWICE DAILY. TAKE WITH 1000 MG OF VITAMINC. Linzess 145 mcg capsule 145 mcg PO DAILY Qty: 30 0RF levothyroxine 50 mcg tablet 50 mcg PO DAILY escitalopram oxalate 20 mg tablet 20 mg PO DAILY clonazepam 1 mg tablet 1 mg PO DAILY Qty: 30 0RF quetiapine 50 mg tablet 50 mg PO BID Qty: 30 0RF Discontinued meclizine 12.5 mg tablet 12.5 mg PO Q8H PRN (Reason: Dizziness) Discharge Orders: Discharge Order (Routine); Ordered 08/24/22 Ordered By: Chelsi Caro Referrals: [facility] ([facility]) [Outside] Boyd,Rebekah L, DO [Primary Care Provider] - 08/29/22 1:40 pm Patient Instructions: Opioid Safety Discharge Attestations Time Spent in Discharge Care*: less than 30 min Status at Discharge: Cognitive status at discharge: cognitively intact , Behavioral status at discharge: cooperative , Quality Metrics Clinical Quality Measures [ No reported AMI, CVA or VTE this stay] Coding Level of Care Code Acute Code for Chg Fwd Diagnoses Left ventricular thrombus I51.3 Palliative care status Z51.5 Lower extremity weakness R29.898 Laterality: bilateral Memory loss R41.3 History of back surgery Z98.890 Acute urinary retention R33.8 Pneumonia J18.9 Difficult Kaba catheter placement T83.9XXA Rectocele N81.6
== END 2022-08-24 14:17 | disposition home health service (06) | DRG 193 ==
LOC: ER 16:12 → MEDSURG 20:12
PROVIDERS: Physician Assistant; Admitting Provider Internal Medicine; Emergency Provider Family Medicine; PCP Family Medicine; Visit Provider Internal Medicine
DX: J18.9 Pneumonia, unspecified organism (principal); I26.93 Single subsegmental thrombotic pulmonary embolism without acute cor pulmonale; N17.9 Acute kidney failure, unspecified; I51.3 Intracardiac thrombosis, not elsewhere classified; R41.3 Other amnesia; R29.898 Other symptoms and signs involving the musculoskeletal system; R53.1 Weakness; R33.9 Retention of urine, unspecified; N81.6 Rectocele; R53.81 Other malaise; E86.0 Dehydration; N94.89 Other specified conditions associated with female genital organs and menstrual cycle; R00.0 Tachycardia, unspecified; I10 Essential (primary) hypertension; E03.9 Hypothyroidism, unspecified; K21.9 Gastro-esophageal reflux disease without esophagitis; F41.0 Panic disorder [episodic paroxysmal anxiety]; Z66 Do not resuscitate; Z51.5 Encounter for palliative care; Z98.890 Other specified postprocedural states; Z87.891 Personal history of nicotine dependence; Z86.73 Personal history of transient ischemic attack (TIA), and cerebral infarction without residual deficits; Z79.82 Long term (current) use of aspirin; Z87.440 Personal history of urinary (tract) infections
CPT/HCPCS: 36415; 36416; 51702; 51798; 70450; 70496; 70498; 71045; 71275; 80048; 80053; 80202; 81001; 82962; 83605; 83735; 83880; 84145; 84443; 84484; 85025; 85378; 85610; 86140; 87040; 87086; 87426; 87635; 87804; 92523; 92526; 92610; 93005; 93306; 93308; 94640; 94760; 96365; 96366; 96367; 96372; 96375; 97110; 97116; 97161; 97166; 97530; 97535; 99285; C8924; C9113; G0378; J0456; J0696; J1644; J1650; J1956; J3370; J3490; J7030; J7040; J7050; Q0144; Q3014; Q9956; Q9967

== ENCOUNTER 2022-08-25 09:35 | Inpatient (IN) | payer MEDICARE, SELFPAY ==
[2022-08-25] VITALS (8 sets, daily range): BP systolic 91–122; BP diastolic 59–85; PULSE 106–119; RESP 22–28; TEMP 36.2–36.4; O2SAT 91–96; BMI 27.4; BMI 25.9
--- NOTE | 2022-08-25 09:49 | W.ED.AMS ---
Documented by User: EDITA Rivera 08/25/22 10:18 HPI - Altered Mental Status General: Chief Complaint: Altered Mental Status Stated Complaint: AMS Time Seen by Provider: 08/25/22 09:37 Source: EMS Mode of arrival: EMS Limitations: altered mental status History of Present Illness: Patient is an 87-year-old female presents to ED today via EMS for complaints of altered mental status and lethargy. Patient was recently admitted to the hospital for treatment of pneumonia and pulmonary embolism. She was found to have a left ventricular thrombus as well. Patient also had acute kidney injury. She also had some issues with urinary retention which required Dr. Mesa to place a difficult Kaba. states patient was just released yesterday. According to hospitalist documentation patient did not qualify for hospice and was sent home on home health services with palliative care. Patient arrives to the ED altered. She is able to tell me her name. She states she was born in 1965 (actual 1935). She can tell me she is in a hospital. She knows a few numbers of her zip code but otherwise she is not able to answer any questions. She arrives tachycardic, tachypneic, and hypotensive. MD complaint: altered mental status, confusion and decreased responsiveness Onset (ago): hour(s) Timing confirmed by: spouse () Review of Systems General: Reports: ROS unobtainable due to medical condition and ROS unobtainable due to mental status [facility] ED PFSH: Medical History Acute kidney injury Acute urinary retention Anxiety disorder -anxiolytics PRN, resume clonazepam on d/c CVA (cerebral vascular accident) Difficult Kaba catheter placement Encounter for long-term (current) use of NSAIDs Encounter for narcotic contract discussion Episode of transient neurologic symptoms Genital atrophy of female GERD (gastroesophageal reflux disease) -on PPI HTN (hypertension) -hypertensive today; continue to monitor vital signs -on HCTZ 25 mg daily, may need this titrated if continued hypertension Hypothyroidism -TSH-low (0.11) -on levothyroxine, recently adjusted by PCP Left ventricular thrombus Lower extremity weakness -Reports bilateral lower extremity weakness, significantly worse on the left with associated progressive difficulty with ambulation Memory loss Osteoarthritis Palliative care status Pericardial effusion Pneumonia Pulmonary embolism Rectocele Recurrent UTI Tachycardia UTI (urinary tract infection) -has been on antibiotic treatment with macrobid for UTI (day 03/21) -UA here not indicative of infection Surgical History H/O laminectomy H/O: hysterectomy History of appendectomy History of back surgery History of hip replacement S/P left knee arthroscopy Family History Son Alcohol abuse Psychiatric illness Bipolar disorder Mother , at age 91 Cancer Father , at age 42 MVA (motor vehicle accident) Social History Smoking and tobacco status: former smoker Quit status (tobacco): has quit using tobacco Former quit date comment: Remote history Second hand smoke exposure: No Alcohol intake: never Household members: spouse Marital status: Current occupational status: retired Physical Exam Const: COMMON NORMALS: well nourished EXAM LIMITATIONS: altered mental status GENERAL APPEARANCE: lethargic and ill appearing ORIENTATION/CONSCIOUSNESS: Yes awake, Yes oriented to person, Yes oriented to place ( hospital ), Yes confused and Yes lethargic HENMT: COMMON NORMALS: normocephalic and atraumatic HEAD & SCALP: normal to inspection, normocephalic and atraumatic Chest: COMMONS NORMALS: normal inspection of the chest Resp: EFFORT & INSPECTION: Yes tachypneic, Yes labored, No grunting and No stridor AUSCULTATION: diminished lung sounds Cardio: COMMON NORMALS: regular rhythm RATE: tachycardic RHYTHM: regular rhythm GI: COMMON NORMALS: Soft to palpation INSPECTION: Yes abdominal wall ecchymosis (most likely from recent lovenox injections) AUSCULTATION: Yes normoactive bowel sounds PALPATION: Yes Soft to palpation, Yes Tenderness to palpation present (GI) (diffusely), No Guarding due to palpation present (GI) and No Rigid due to palpation Extremity: COMMON NORMALS: capillary refill normal, no joint enlargement, no clubbing, cyanosis or edema, no calf tenderness and no pedal edema GENERAL: Yes normal exam except as noted Neuro: TOMASZ COMA SCALE: document GCS findings Tomasz coma scale eye opening: Spontaneous Tomasz coma scale verbal response: Confused Tomasz coma scale motor response: Obey commands Tomasz coma scale total score: 14 SENSORIUM/ORIENTATION: Yes oriented to person, Yes oriented to place ( hospital ) and Yes lethargic Course Vital Signs: Vital signs: Vital Signs Temperature 97.2 F L 08/25/22 09:50 Pulse Rate 109 H 08/25/22 12:30 Respiratory Rate 24 H 08/25/22 12:30 Blood Pressure 118/62 08/25/22 12:30 Pulse Oximetry 96 08/25/22 12:30 Oxygen Delivery Me thod 08/25/22 12:30 Oxygen Flow Rate 2 08/25/22 12:30 MDM - Altered Mental Status Medical Decision Making Care will be transferred to Dr. Obrien. ES Lab Data 08/25/22 10:12 08/25/22 10:12 Radiology Impressions Chest X-Ray 08/25/22 09:50 IMPRESSION: Progression of lung abnormality presumably secondary to congestive heart failure. Head CT 08/25/22 10:01 IMPRESSION: 1. Stable noncontrast head CT since 08/19/2022. 2. Mild atrophy and small vessel ischemic disease. No acute intracranial hemorrhage. Laboratory Results WBC 10.2 10^3/uL (4.0-10.0) H 08/25/22 10:12 RBC 4.57 10^6/uL (4.1-5.3) 08/25/22 10:12 Hgb 12.2 g/dL (11.5-15.3) 08/25/22 10:12 Hct 39.9 % (37.0-47.0) 08/25/22 10:12 MCV 87.3 fl (81-99) 08/25/22 10:12 MCH 26.7 pg (28.0-34.0) L 08/25/22 10:12 MCHC 30.6 g/dL (30.0-36.0) 08/25/22 10:12 RDW 14.9 % (12.1-15.1) 08/25/22 10:12 Plt Count 275 10^3/cmm (130-400) 08/25/22 10:12 MPV 9.6 fL (7.4-10.4) 08/25/22 10:12 Neut % (Auto) 77.8 % 08/25/22 10:12 Lymph % (Auto) 11.6 % 08/25/22 10:12 [place] % (Auto) 7.7 % 08/25/22 10:12 Eos % (Auto) 1.1 % 08/25/22 10:12 Baso % (Auto) 0.6 % 08/25/22 10:12 Neut # (Auto) 7.96 10^3/uL (1.8-7.7) H 08/25/22 10:12 Lymph # (Auto) 1.2 10^3/uL (0.8-4.8) 08/25/22 10:12 [place] # (Auto) 0.8 10^3/uL (0.2-0.9) 08/25/22 10:12 Eos # (Auto) 0.1 10^3/uL (0.0-0.8) 08/25/22 10:12 Baso # (Auto) 0.1 10^3/uL (0.0-0.1) 08/25/22 10:12 Nucleated RBC % (auto) 0 % 08/25/22 10:12 Nucleated RBCs # 0.0 /100WBC 08/25/22 10:12 Sodium 137 mmol/L (136-145) 08/25/22 10:12 Potassium 4.4 mmol/L (3.5-5.1) 08/25/22 10:12 Chloride 104 mmol/L (98-107) 08/25/22 10:12 Carbon Dioxide 14 mmol/L (22-29) L 08/25/22 10:12 Anion Gap 23.4 (5-19) H 08/25/22 10:12 BUN 34 mg/dL (8-23) H 08/25/22 10:12 Creatinine 1.4 mg/dL (0.5-0.9) H 08/25/22 10:12 GFR Calculation Not Reportable 08/25/22 10:12 Glucose 140 mg/dL (65-115) H 08/25/22 10:12 Calculated Osmolality 294 mOsm/kg (285-295) 08/25/22 10:12 Lactic Acid 2.4 mmol/L (0.5-2.2) H 08/25/22 10:12 Lactic Acid (Sepsis) 2.1 mmol/L (0.5-2.2) 08/25/22 12:20 Calcium 9.4 mg/dL (8.5-10.5) 08/25/22 10:12 Total Bilirubin 0.8 mg/dL (0.15-1.2) 08/25/22 10:12 AST 28 U/L (0-32) 08/25/22 10:12 ALT 16 U/L (0-33) 08/25/22 10:12 Alkaline Phosphatase 85 U/L (35-105) 08/25/22 10:12 Troponin T Baseline 568 ng/L (0-10) H* 08/25/22 10:12 Troponin T 120 Minute 486.6 ng/L (0-10) H 08/25/22 12:20 Delta Troponin T -81.4 ABS# (0-10) L 08/25/22 12:20 C-Reactive Protein 181.2 mg/L (0.0-4.9) H 08/25/22 10:12 NT-Pro-B Natriuret Pep 6956 pg/mL (0-450) H 08/25/22 10:12 Total Protein 6.3 g/dL (6.6-8.7) L 08/25/22 10:12 Albumin 3.2 g/dL (3.5-5.2) L 08/25/22 10:12 Globulin 3.1 g/dL (1.3-4.6) 08/25/22 10:12 Procalcitonin 0.36 ng/mL (0-0.5) 08/25/22 10:12 Procalcitonin 0.37 ng/mL (0-0.5) 08/25/22 10:12 Urine Color Yellow (Yellow) 08/25/22 11:21 Urine Appearance Hazy (CLEAR) A 08/25/22 11:21 Urine pH 5 (5-7) 08/25/22 11:21 Ur Specific [place] 1.025 (1.005-1.030) 08/25/22 11:21 Urine Protein 1+ (Negative) H 08/25/22 11:21 Urine Glucose (UA) Norm (Normal) 08/25/22 11:21 Urine Ketones 1+ (Negative) H 08/25/22 11:21 Urine Blood 3+ (Negative) H 08/25/22 11:21 Urine Nitrate Negative (Negative) 08/25/22 11:21 Urine Bilirubin 1+ (Negative) H 08/25/22 11:21 Urine Urobilinogen Neg mg/dL (Negative) 08/25/22 11:21 Ur Leukocyte Esterase 2+ (Negative) H 08/25/22 11:21 Urine RBC 5-10 /hpf (0-2) H 08/25/22 11:21 Urine WBC 15-25 /hpf (0-5) H 08/25/22 11:21 Ur Squamous Epith Cells 0-4 /hpf (0-5) H 08/25/22 11:21 Amorphous Sediment Not Reportable 08/25/22 11:21 Urine Bacteria 1+ /hpf (NONE) H 08/25/22 11:21 Hyaline Casts 0-4 /lpf H 08/25/22 11:21 Urine Mucus 1+ /hpf 08/25/22 11:21 Urine Yeast 1+ /hpf H 08/25/22 11:21 Discharge Plan Discharge Patient Disposition: Admitted As Inpatient Admit Provider: Karyn Wilkerson Clinical Impression: Systolic congestive heart failure, Pneumonia, Encephalopathy Condition: Stable Coding Level of Care Code ED [place] Polisher Operator for Chg Fwd Documented by User: Rosalio Obrien DO 08/25/22 13:32 HPI - Altered Mental Status General: Chief Complaint: Altered Mental Status Stated Complaint: AMS Time Seen by Provider: 08/25/22 09:37 PFSH ED PFSH: Medical History Acute kidney injury Acute urinary retention Anxiety disorder -anxiolytics PRN, resume clonazepam on d/c CVA (cerebral vascular accident) Difficult Kaba catheter placement Encounter for long-term (current) use of NSAIDs Encounter for narcotic contract discussion Episode of transient neurologic symptoms Genital atrophy of female GERD (gastroesophageal reflux disease) -on PPI HTN (hypertension) -hypertensive today; continue to monitor vital signs -on HCTZ 25 mg daily, may need this titrated if continued hypertension Hypothyroidism -TSH-low (0.11) -on levothyroxine, recently adjusted by PCP Left ventricular thrombus Lower extremity weakness -Reports bilateral lower extremity weakness, significantly worse on the left with associated progressive difficulty with ambulation Memory loss Osteoarthritis Palliative care status Pericardial effusion Pneumonia Pulmonary embolism Rectocele Recurrent UTI Tachycardia UTI (urinary tract infection) -has been on antibiotic treatment with macrobid for UTI (day 03/21) -UA here not indicative of infection Surgical History H/O laminectomy H/O: hysterectomy History of appendectomy History of back surgery History of hip replacement S/P left knee arthroscopy Family History Son Alcohol abuse Psychiatric illness Bipolar disorder Mother , at age 91 Cancer Father , at age 42 MVA (motor vehicle accident) Social History Smoking and tobacco status: former smoker Quit status (tobacco): has quit using tobacco Former quit date comment: Remote history Second hand smoke exposure: No Alcohol intake: never Household members: spouse Marital status: Current occupational status: retired Physical Exam Neuro: TOMASZ COMA SCALE: document GCS findings [place] coma scale total score: 14 Course Vital Signs: Vital signs: Vital Signs Temperature 97.2 F L 08/25/22 09:50 Pulse Rate 109 H 08/25/22 12:30 Respiratory Rate 24 H 08/25/22 12:30 Blood Pressure 118/62 08/25/22 12:30 Pulse Oximetry 96 08/25/22 12:30 Oxygen Delivery Me thod 08/25/22 12:30 Oxygen Flow Rate 2 08/25/22 12:30 MDM - Altered Mental Status Medical Decision Making Care will be transferred to Dr. Obrien. ES Patient care handoff received from Mayra Nobles continuation of ED evaluation. I personally saw and evaluated patient and reperformed husain portions of E/M. Labs and imaging reviewed patient examined. She is still not able to give any answer she is extremely disoriented and lethargic. Patient is in severe decompensated congestive heart failure bordering on cardiogenic shock. Discussed with her they had previously declined angiography at the last visit. Troponin is elevated patient also appears to have a pneumonia that did not get antibiotics at their discharge home with. We will start on aztreonam Vanco and Levaquin. After discussing with her they want us to treat what we can but do not want any aggressive treatment. We will avoid pressors and admit patient on telemetry to the medical floor start IV antibiotic discussed with Dr. Wilkerson orders written. Family is considering transitioning to comfort care early in the process if patient is does not show improvement Medical Records I reviewed the patient's medical records. Lab Data I reviewed the patient's lab results. 08/25/22 10:12 08/25/22 10:12 Radiology Impressions Chest X-Ray 08/25/22 09:50 IMPRESSION: Progression of lung abnormality presumably secondary to congestive heart failure. Head CT 08/25/22 10:01 IMPRESSION: 1. Stable noncontrast head CT since 08/19/2022. 2. Mild atrophy and small vessel ischemic disease. No acute intracranial hemorrhage. Laboratory Results WBC 10.2 10^3/uL (4.0-10.0) H 08/25/22 10:12 RBC 4.57 10^6/uL (4.1-5.3) 08/25/22 10:12 Hgb 12.2 g/dL (11.5-15.3) 08/25/22 10:12 Hct 39.9 % (37.0-47.0) 08/25/22 10:12 MCV 87.3 fl (81-99) 08/25/22 10:12 MCH 26.7 pg (28.0-34.0) L 08/25/22 10:12 MCHC 30.6 g/dL (30.0-36.0) 08/25/22 10:12 RDW 14.9 % (12.1-15.1) 08/25/22 10:12 Plt Count 275 10^3/cmm (130-400) 08/25/22 10:12 MPV 9.6 fL (7.4-10.4) 08/25/22 10:12 Neut % (Auto) 77.8 % 08/25/22 10:12 Lymph % (Auto) 11.6 % 08/25/22 10:12 Prowers % (Auto) 7.7 % 08/25/22 10:12 Eos % (Auto) 1.1 % 08/25/22 10:12 Baso % (Auto) 0.6 % 08/25/22 10:12 Neut # (Auto) 7.96 10^3/uL (1.8-7.7) H 08/25/22 10:12 Lymph # (Auto) 1.2 10^3/uL (0.8-4.8) 08/25/22 10:12 Prowers # (Auto) 0.8 10^3/uL (0.2-0.9) 08/25/22 10:12 Eos # (Auto) 0.1 10^3/uL (0.0-0.8) 08/25/22 10:12 Baso # (Auto) 0.1 10^3/uL (0.0-0.1) 08/25/22 10:12 Nucleated RBC % (auto) 0 % 08/25/22 10:12 Nucleated RBCs # 0.0 /100WBC 08/25/22 10:12 Sodium 137 mmol/L (136-145) 08/25/22 10:12 Potassium 4.4 mmol/L (3.5-5.1) 08/25/22 10:12 Chloride 104 mmol/L (98-107) 08/25/22 10:12 Carbon Dioxide 14 mmol/L (22-29) L 08/25/22 10:12 Anion Gap 23.4 (5-19) H 08/25/22 10:12 BUN 34 mg/dL (8-23) H 08/25/22 10:12 Creatinine 1.4 mg/dL (0.5-0.9) H 08/25/22 10:12 GFR Calculation Not Reportable 08/25/22 10:12 Glucose 140 mg/dL (65-115) H 08/25/22 10:12 Calculated Osmolality 294 mOsm/kg (285-295) 08/25/22 10:12 Lactic Acid 2.4 mmol/L (0.5-2.2) H 08/25/22 10:12 Lactic Acid (Sepsis) 2.1 mmol/L (0.5-2.2) 08/25/22 12:20 Calcium 9.4 mg/dL (8.5-10.5) 08/25/22 10:12 Total Bilirubin 0.8 mg/dL (0.15-1.2) 08/25/22 10:12 AST 28 U/L (0-32) 08/25/22 10:12 ALT 16 U/L (0-33) 08/25/22 10:12 Alkaline Phosphatase 85 U/L (35-105) 08/25/22 10:12 Troponin T Baseline 568 ng/L (0-10) H* 08/25/22 10:12 Troponin T 120 Minute 486.6 ng/L (0-10) H 08/25/22 12:20 Delta Troponin T -81.4 ABS# (0-10) L 08/25/22 12:20 C-Reactive Protein 181.2 mg/L (0.0-4.9) H 08/25/22 10:12 NT-Pro-B Natriuret Pep 6956 pg/mL (0-450) H 08/25/22 10:12 Total Protein 6.3 g/dL (6.6-8.7) L 08/25/22 10:12 Albumin 3.2 g/dL (3.5-5.2) L 08/25/22 10:12 Globulin 3.1 g/dL (1.3-4.6) 08/25/22 10:12 Procalcitonin 0.36 ng/mL (0-0.5) 08/25/22 10:12 Procalcitonin 0.37 ng/mL (0-0.5) 08/25/22 10:12 Urine Color Yellow (Yellow) 08/25/22 11:21 Urine Appearance Hazy (CLEAR) A 08/25/22 11:21 Urine pH 5 (5-7) 08/25/22 11:21 Ur Specific [place] 1.025 (1.005-1.030) 08/25/22 11:21 Urine Protein 1+ (Negative) H 08/25/22 11:21 Urine Glucose (UA) Norm (Normal) 08/25/22 11:21 Urine Ketones 1+ (Negative) H 08/25/22 11:21 Urine Blood 3+ (Negative) H 08/25/22 11:21 Urine Nitrate Negative (Negative) 08/25/22 11:21 Urine Bilirubin 1+ (Negative) H 08/25/22 11:21 Urine Urobilinogen Neg mg/dL (Negative) 08/25/22 11:21 Ur Leukocyte Esterase 2+ (Negative) H 08/25/22 11:21 Urine RBC 5-10 /hpf (0-2) H 08/25/22 11:21 Urine WBC 15-25 /hpf (0-5) H 08/25/22 11:21 Ur Squamous Epith Cells 0-4 /hpf (0-5) H 08/25/22 11:21 Amorphous Sediment Not Reportable 08/25/22 11:21 Urine Bacteria 1+ /hpf (NONE) H 08/25/22 11:21 Hyaline Casts 0-4 /lpf H 08/25/22 11:21 Urine Mucus 1+ /hpf 08/25/22 11:21 Urine Yeast 1+ /hpf H 08/25/22 11:21 Discharge Plan Discharge Patient Disposition: Admitted As Inpatient Admit Provider: Karyn Wilkerson Clinical Impression: Systolic congestive heart failure, Pneumonia, Encephalopathy Condition: Stable Coding Level of Care Code ED [place] Polisher Operator for Page Elder
--- NOTE | 2022-08-25 09:50 | XR_ITS ---
WS: [id number] XR chest 1V portable [id number] REASON FOR EXAM: AMS FINDINGS: The heart is enlarged. Compared to previous examination of 08/19/2022, continued reticular interstitial lung opacities. Increasing pleural effusions, most notably on the right. XR/XR chest 1V portable [id number] IMPRESSION: Progression of lung abnormality presumably secondary to congestive heart failur e.
--- NOTE | 2022-08-25 10:01 | CT_ITS ---
WS: [id number] CT HEAD NONCONTRAST HISTORY: AMS TECHNIQUE: Contiguous axial imaging performed through the brain in 2.5 mm imaging. Bone and soft tiss ue windows. Sagittal and coronal reformats reviewed. All CT scans at [facility] use at least one of these dose optimization techniques: automated exposure control; mA and/or kV adjustment per pa tient size (includes targeted exams where dose is matched to clinical indication); or iterative recon struction. DLP: 1053.24 mGy.cm COMPARISON: 08/19/2022 Mild atrophy and small vessel ischemic disease. No intracranial hemorrhage. No loss of the dove-white matter differentiation. Heavy dense calcification along the anterior middle cranial fossa, LEFT grea ter than RIGHT unchanged since 10/30/2019. Small lacunar infarcts in the external capsules. Possible small prior infarct in the posterior medial RIGHT occipital lobe. Ventricles: Normal size with no hydrocephalus. Paranasal sinuses: Small amount of debris in the RIGHT maxillary sinus incompletely visualized. Mastoid air cells: Well pneumatized. Calvarium and scalp: Skull is intact with no soft tissue edema or swelling. CT/CT head wo con* [id number] IMPRESSION: 1. Stable noncontrast head CT since 08/19/2022. 2. Mild atrophy and small vessel ischemic disease. No acute intracranial hemor rhage.
--- NOTE | 2022-08-25 10:05 | ECG_ITS ---
[facility] Test Date: 2022-08-25 Pat Name: Mel Ferrara Department: Room: Gender: Female Systems Security Consultant: : 1935 Requested By: Mayra Nobles Order Number: [id number] Reading MD: CHELSI CERDA Measurements Intervals [place] Rate: 118 P: 0 AL: 0 QRS: -26 QRSD: 125 T: 56 QT: 361 QTc: 506 Interpretive Statements Sinus tachycardia WITH BORDERLINE LEFT AXIS DEVIATION [QRS AXIS < -20] RIGHT BUNDLE BRANCH BLOCK [120+ ms QRS DURATION, UPRIGHT V1, 40+ ms S IN I/aVL/V4/V5/V6] Compared to ECG 08/19/2022 18:12:04 Right bundle-branch block now present Sinus tachycardia no longer present There is no change Electronically Signed On 08-27-2022 23:40:49 CDT by CHELSI CERDA [email or web address]
[2022-08-25 10:25] LABS: Basophils # 0.1 10^3/uL (0.0-0.1); Basophils % 0.6 %; Eosinophils # 0.1 10^3/uL (0.0-0.8); Eosinophils % 1.1 %; Hematocrit 39.9 % (37.0-47.0); Hemoglobin 12.2 g/dL (11.5-15.3); Lymphocytes # 1.2 10^3/uL (0.8-4.8); Lymphocytes % 11.6 %; Mean Corpuscular HGB Conc 30.6 g/dL (30.0-36.0); Mean Corpuscular Hemoglobin 26.7 pg (28.0-34.0); Mean Corpuscular Volume 87.3 fl (81-99); Mean Platelet Volume 9.6 fL (7.4-10.4); Monocytes # 0.8 10^3/uL (0.2-0.9); Monocytes % 7.7 %; Neutrophils # 7.96 10^3/uL (1.8-7.7); Neutrophils % 77.8 %; Nucleated Red Blood Cells % 0 %; Platelet Count 275 10^3/cmm (130-400); Red Blood Count 4.57 10^6/uL (4.1-5.3); Red Cell Distribution Width 14.9 % (12.1-15.1); White Blood Count 10.2 10^3/uL (4.0-10.0)
[2022-08-25 10:46] LABS: Lactic Sepsis W/Reflex 2.4 mmol/L (0.5-2.2)
[2022-08-25 10:52] LABS: Troponin(5th) Baseline 568 ng/L (0-10)
[2022-08-25 10:58] LABS: NT Pro B Type Natriuretic Pept 6956 pg/mL (0-450); Procalcitonin 0.36 ng/mL (0-0.5)
[2022-08-25 11:09] LABS: Alanine Aminotransferase 16 U/L (0-33); Albumin Level 3.2 g/dL (3.5-5.2); Alkaline Phosphatase 85 U/L (35-105); Anion Gap 23.4 (5-19); Aspartate Amino Transferase 28 U/L (0-32); Blood Urea Nitrogen 34 mg/dL (8-23); C Reactive Protein 181.2 mg/L (0.0-4.9); Calcium 9.4 mg/dL (8.5-10.5); Carbon Dioxide 14 mmol/L (22-29); Chloride 104 mmol/L (98-107); Globulin 3.1 g/dL (1.3-4.6); Glucose 140 mg/dL (65-115); Osmolality Calculated 294 mOsm/kg (285-295); Potassium 4.4 mmol/L (3.5-5.1); Sodium 137 mmol/L (136-145); Total Bilirubin 0.8 mg/dL (0.15-1.2); Total Protein 6.3 g/dL (6.6-8.7)
[2022-08-25] MEDS: sodium chloride 0.9% 1,000 ML 150 ML IV (11:17)
[2022-08-25] MEDS: vancomycin 1,000 MG in sodium chloride 0.9% 250 ML 250 MG IV (11:21)
--- NOTE | 2022-08-25 11:33 | PM.HP ---
Providers/Chief Complaint Primary Care Provider: Rebekah Nix DO Chief Complaint: AMS History of Present Illness Mel Ferrara is a 87 year old female with past medical history of PE, LV thrombus, recent pneumonia, HFrEF presented to hospital for AMS and lethargy, brought in by . She was discharged yesterday with palliative care. Has shabazz from previous admission for urinary retention. Pt cannot provide any history at this time. not at bedside. ER spoke to who stated he will consider comfort measures if no improvement within 24 hours. He is not interested in aggresive invasive procedures. History obtained from chart. ER course: b/l pleural effusions, BNP 6900, EKG did not show ischemic changes, vanc, aztreonam and levofloxacin, wbc 10.2, UA abnormal Echo ordered. Previous discharge summary: 87-year-old female for generalized weakness and fatigue, she was diagnosed with pneumonia at the time of admission, required antibiotics, CT was done because she remained tachycardic, it showed pulmonary embolism, she was anticoagulated with Lovenox, echo showed left ventricular thrombus, multiple family meetings elected, and the patient both decided to pursue home health services with palliative care, Dr. Posey was also consulted who agreed with the plan, patient is extremely weak and lethargic, does not have focal deficits, head and neck CTA did not show any acute stroke related changes, patient is severely deconditioned, very anxious appearing, requiring 2 L of oxygen at the time of discharge, and patient does not want [place] [facility] for now however considering her weakness she is high risk for readmission and might need [place] [facility] placement in the future, considering palliative care patient and her both decided against Coumadin which was recommended for left radical thrombus and PE, she does not want frequent INR checks, agreeable with Eliquis for now.? Please note her EF is reduced as well to 40%, did not want to pursue any angiogram or further investigation. Medications/Allergies Home Medications Medication Instructions Recorded Confirmed Last Taken Type aspirin 81 mg tablet,delayed 81 mg PO DAILY #30 tabs 12/02/19 08/25/22 08/18/22 Rx release (Adult Low Dose Aspirin) atorvastatin 40 mg tablet (Lipitor) 40 mg PO DAILY #30 tabs 12/02/19 08/25/22 08/18/22 Rx fluticasone propionate 50 2 spray intranasal DAILY PRN 12/02/19 08/25/22 08/18/22 History mcg/actuation nasal Allergy Symptoms spray,suspension (Flonase Allergy Relief) melatonin 10 mg capsule 10 mg PO DAILY 12/02/19 08/25/22 08/18/22 History omeprazole 20 mg capsule,delayed 20 mg PO DAILY 12/02/19 08/25/22 08/18/22 History release linaclotide 145 mcg capsule 145 mcg PO DAILY #30 caps 08/29/21 08/25/22 08/18/22 Rx (Linzess) ascorbic acid (vitamin C) 1,000 mg 1 g PO DAILY 09/07/21 08/25/22 08/18/22 History tablet docusate sodium 100 mg capsule 100 mg PO DAILY 02/08/22 08/25/22 08/18/22 History (Colace) methenamine hippurate 1 gram tablet See Rx Instructions .Route 02/08/22 08/25/22 08/18/22 Rx .COMPLEX #60 tabs escitalopram oxalate 20 mg tablet 20 mg PO DAILY 08/19/22 08/25/22 Unknown History levothyroxine 50 mcg tablet 50 mcg PO DAILY 08/19/22 08/25/22 08/18/22 History apixaban 5 mg (74 tabs) tablets in See Rx Instructions PO .COMPLEX 08/24/22 08/25/22 Unknown Rx a dose pack (Eliquis DVT-PE Treat #74 ea 30D Start) clonazepam 1 mg tablet 1 mg PO DAILY #30 tabs 08/24/22 08/25/22 08/18/22 Rx levofloxacin 750 mg tablet 750 mg PO DAILY@0600 #5 tabs 08/24/22 08/25/22 Unknown Rx metoprolol tartrate 25 mg tablet 25 mg PO BID #60 tabs 08/24/22 08/25/22 Unknown Rx oxycodone-acetaminophen 5 mg-325 1 tab PO Q8H PRN pain #20 tabs 08/24/22 08/25/22 Unknown Rx mg tablet quetiapine 50 mg tablet 50 mg PO BID #30 tabs 08/24/22 08/25/22 08/18/22 Rx sennosides 8.6 mg-docusate sodium 1 tab PO DAILY #30 tabs 08/24/22 08/25/22 Unknown Rx 50 mg tablet (Stool Softener-Laxative) alfuzosin 10 mg tablet,extended 10 mg PO DAILY 08/25/22 08/25/22 Unknown History release 24 hr multivit with 1 tab PO DAILY 08/25/22 08/25/22 Unknown History hxplaxyy-smrt-YK-lutein 8 mg iron-400 mcg-300 mcg tablet (Centrum Silver Women) vitamin B12 2,500 mcg-folic acid 1 tab PO DAILY 08/25/22 08/25/22 Unknown History 400 mcg disintegrating tablet Allergies Allergy/AdvReac Type Severity Reaction Status Date / Time Penicillins Allergy Unknown ALGY-Rash Verified 08/25/22 10:47 Sulfa (Sulfonamide Allergy Unknown ALGY-Hives Verified 08/25/22 10:47 Antibiotics) PFSH Acute PFSH: Medical History Acute kidney injury Acute urinary retention Anxiety disorder -anxiolytics PRN, resume clonazepam on d/c CVA (cerebral vascular accident) Difficult Shabazz catheter placement Encounter for long-term (current) use of NSAIDs Encounter for narcotic contract discussion Episode of transient neurologic symptoms Genital atrophy of female GERD (gastroesophageal reflux disease) -on PPI HTN (hypertension) -hypertensive today; continue to monitor vital signs -on HCTZ 25 mg daily, may need this titrated if continued hypertension Hypothyroidism -TSH-low (0.11) -on levothyroxine, recently adjusted by PCP Left ventricular thrombus Lower extremity weakness -Reports bilateral lower extremity weakness, significantly worse on the left with associated progressive difficulty with ambulation Memory loss Osteoarthritis Palliative care status Pericardial effusion Pneumonia Pulmonary embolism Rectocele Recurrent UTI Tachycardia UTI (urinary tract infection) -has been on antibiotic treatment with macrobid for UTI (day 03/21) -UA here not indicative of infection Surgical History H/O laminectomy H/O: hysterectomy History of appendectomy History of back surgery History of hip replacement S/P left knee arthroscopy Family History Son Alcohol abuse Psychiatric illness Bipolar disorder Mother , at age 91 Cancer Father , at age 42 MVA (motor vehicle accident) Social History Smoking and tobacco status: former smoker Quit status (tobacco): has quit using tobacco Former quit date comment: Remote history Second hand smoke exposure: No Alcohol intake: never Household members: spouse Marital status: Current occupational status: retired Vitals/I&O/Wt Last Vital Signs Temp 97.2 F L 08/25/22 09:50 Pulse 113 H 08/25/22 11:22 Resp 22 H 08/25/22 11:22 BP 95/59 08/25/22 11:22 Pulse Ox 94 08/25/22 11:22 O2 Del Method 08/25/22 11:22 O2 Flow Rate 2 08/25/22 09:50 Weight last 48 hrs Weight 72.575 kg Physical Exam Narrative: patient laying in bed, altered, somewhat alert, not oriented to person, place or time appears weak and deconditioned normal s1, s2, anterior lung [place] clear to ausculation, unable to auscultate posterior due to positioning. Lung bases crackles abdomen soft, non tender, does not grimace to palpation 1+ pitting edema b/l LE Shabazz draining cloudy urine, concentrated BP at bedside 80/62, tachycardic 112 on 3L NC Does not appear to be in respiratory distress Exam above reflective of time of admission Data 08/25/22 10:12 08/25/22 10:12 Micro: Microbiology 08/25/22 10:08 Blood Culture - Preliminary Blood SPECIMEN COLLECTED 08/25/22 10:12 Blood Culture - Preliminary Blood SPECIMEN COLLECTED A&P Assessment and plan (1) Systolic congestive heart failure: (2) Pneumonia: (3) Encephalopathy: (4) CVA (cerebral vascular accident): (5) Lactic acid acidosis: (6) Pulmonary emboli: (7) UTI (urinary tract infection): (8) Pericardial effusion: (9) NSTEMI (non-ST elevated myocardial infarction): (10) Altered mental status: (11) Goals of care, counseling/discussion: (12) Constipation: (13) Heart failure: (14) Troponin level elevated: (15) Pleural effusion: Plan #AMS, Weakness, Lethargy #NSTEMI type 1 vs type 2, unknown #Chronic shabazz 2/2 urinary retention #UTI #Sepsis 2/2 to unknown source, possibly pneumonia, UTI or cardiogenic etiology #PE, recent diagnosis #Left ventricular thomrbus #Constipation #GERD #Pericardial effusion, possible tamponade #Acute on chronic congestive HFrEF, diastolic failure - Continue aspirin, atorvastatin, Patient is already anticoagulated. Will hold off on therapeutic lovenox. Troponin elevated acknowledged. - Events from 10.30 PM: Cardiology called with echo results, possible pre-tamponade physiology. Cardio discussed with on the phone. Decision made to hold off on procedures at this time due to patient being stable and not in tamponade. However if becomes hypotensive, will require patience-cardial window. Hold eliquis night time dose. Hold IV fluids - interested in angiogram if required - Continue on antibiotics at this time for pneumonia, Vanc, aztreonam and levofloxacin. Pt s/p 30 mg/kg sepsis bolus - Check urine culture, blood culture, sputum culture - Continue linzess, senna/docusate - Check speech swallow eval, then start on diet as patient altered - Hold alfuzosin at thist jazmine - Continue levothyroxine - Continue shabazz at discharge. - Goals of care discussion done with around 10.30 PM. He would like patient to be DNR.DNI however is ok with cardiac procedures if needed. - Please see cardiology consult. - Check labs in AM - Lactic acid resolved - PT/OT once medically stable DNR/DNI SCDS for PPX as Eliquis now on hold Attestations Medical Necessity Statement*: Will cross > 2 midnight stay for management of above. Diagnoses Systolic congestive heart failure I50.20 Pneumonia J18.9 Encephalopathy G93.40 CVA (cerebral vascular accident) I63.9 Lactic acid acidosis E87.20 Pulmonary emboli I26.99 UTI (urinary tract infection) N39.0 Pericardial effusion I31.39 NSTEMI (non-ST elevated myocardial infarction) I21.4 Altered mental status R41.82 Goals of care, counseling/discussion Z71.89 Constipation K59.00 Heart failure I50.9 Troponin level elevated R77.8 Pleural effusion J90
--- NOTE | 2022-08-25 11:36 | USCV_ITS ---
Mel Ferrara Age: 87 Gender: F : 1935 Exam Date: 08/25/2022 13:11 Ordering Phys: Karyn Wilkerson MD Technologist: JESSY Exam Location: [facility] [place] Indication: ASSES EF PRIOR ECHO FROM 08/21/22 BP: 94 / 56 HR: Rhythm: Sinus Technical Quality: Suboptimal MEASUREMENTS (Male / Female) Normal Values 2D ECHO IVC Diameter 2.2 cm DOPPLER Right Atrial Pressure 15.0 mmHg FINDINGS Left Ventricle Right Ventricle Right Atrium Left Atrium Mitral Valve Aortic Valve Tricuspid Valve Pulmonic Valve Pericardium Aorta IVC CONCLUSIONS Limited echo with suboptimal images Moderate pericardial effusion, there is no respirophasic variation noted, there appeared to be no significant diastolic collapse in four-chamber view however in subcostal view there appeared to be suspicion for diastolic ventricle collapse, IVC is dilated. Most likely patient has precardiac tamponade physiology. Clinical correlation advised. Images are suboptimal therefore cannot comment on LV thrombus. Findings conveyed to hospitalist team. Mikki Yeboah MD (Electronically Signed) Final Date: 25 August 2022 21:32 S
[2022-08-25 12:05] LABS: Bilirubin Urine 1+ (Negative); Blood Urine 3+ (Negative); Glucose Urine UA Norm (Normal); Ketones Urine 1+ (Negative); Nitrate Urine Negative (Negative); Protein Urine 1+ (Negative); Specific Gravity, Urine 1.025 (1.005-1.030); Urine Appearance Hazy (CLEAR); Urine Color Yellow (Yellow); pH Urine 5 (5-7)
[2022-08-25 12:05] LABS: Reflex Lactate Order REFLEX LACTIC ORDERD
[2022-08-25 12:06] LABS: Add Urine Culture? Yes; Add Urine Microscopic? YES; Bacteria Urine 1+ /hpf; Hyaline Casts Urine 0-4 /lpf; Leukocyte Esterase Urine 2+ (Negative); Mucus Urine 1+ /hpf; Squamous Epithelial Cell Urine 0-4 /hpf (0-5); Urobilinogen Urine Neg (Negative); WBC Urine 15-25 /hpf (0-5)
--- NOTE | 2022-08-25 12:07 | ECG_ITS ---
[facility] Test Date: 2022-08-25 Pat Name: Mel Ferrara Department: Room: Gender: Female Administrative Intern: : 1935 Requested By: Mayra Nobles Order Number: [id number] Reading MD: CHELSI CERDA Measurements Intervals [place] Rate: 109 P: 13 WI: 160 QRS: -28 QRSD: 127 T: 71 QT: 365 QTc: 492 Interpretive Statements SINUS TACHYCARDIA BORDERLINE LEFT AXIS DEVIATION [QRS AXIS < -20] RIGHT BUNDLE BRANCH BLOCK [120+ ms QRS DURATION, UPRIGHT V1, 40+ ms S IN I/aVL/V4/V5/V6] Compared to ECG 08/25/2022 10:19:20 Atrial flutter no longer present Electronically Signed On 08-27-2022 23:45:34 CDT by CHELSI CERDA [id number]
[2022-08-25 12:17] LABS: Procalcitonin 0.37 ng/mL (0-0.5)
[2022-08-25] MEDS: aztreonam 1,000 MG in sodium chloride 0.9% (plus) 50 ML 100 MG IV (12:37)
[2022-08-25 12:45] LABS: Lactic Acid level (Lactate) 2.1 mmol/L (0.5-2.2)
[2022-08-25 12:46] LABS: Troponin 5 2HR Delta -81.4 ABS# (0-10)
[2022-08-25 12:48] LABS: Troponin 5 2HR 486.6 ng/L (0-10)
--- NOTE | 2022-08-25 13:04 | PC.NURSE ---
[facility]
[2022-08-25] MEDS: pantoprazole 40 mg SDV IVP (15:21)
--- NOTE | 2022-08-25 16:07 | ECG_ITS ---
[facility] Test Date: 2022-08-25 Pat Name: Mel Ferrara Department: Room: 270 Gender: Female Technical Buyer: : 1935 Requested By: Mayra Nobles Order Number: [id number] Reading MD: CHELSI CERDA Measurements Intervals [place] Rate: 104 P: 39 AZ: 188 QRS: -38 QRSD: 126 T: 60 QT: 370 QTc: 487 Interpretive Statements SINUS TACHYCARDIA WITH OCCASIONAL SUPRAVENTRICULAR PREMATURE COMPLEXES LEFT AXIS DEVIATION [QRS AXIS < -30] RIGHT BUNDLE BRANCH BLOCK [120+ ms QRS DURATION, UPRIGHT V1, 40+ ms S IN I/aVL/V4/V5/V6] Compared to ECG 08/25/2022 12:07:37 No significant changes Electronically Signed On 08-27-2022 23:45:09 CDT by CHELSI CERDA [id number]
[2022-08-25 17:49] LABS: Troponin 5 6HR 442.2 ng/L (0-10); Troponin 5 6HR Delta -125.8 ng/L (0-12)
[2022-08-25 19:41] LABS: Adenovirus Not Detected (NOT DETECT); Chlamydia Pneumoniae Not Detected (NOT DETECT); Coronavirus 229E,HKU1,NL63,OC4 Not Detected (NOT DETECT); Human Metapneumovirus Not Detected (NOT DETECT); Human Rhinovirus/Enterovirus Not Detected (NOT DETECT); Influenza A Not Detected (NOT DETECT); Influenza A H1 Not Detected (NOT DETECT); Influenza A H1-2009 Not Detected (NOT DETECT); Influenza A H3 Not Detected (NOT DETECT); Influenza B Not Detected (NOT DETECT); Mycoplasma Pneumoniae Not Detected (NOT DETECT); Parainfluenza Virus Type 1 Not Detected (NOT DETECT); Parainfluenza Virus Type 2 Not Detected (NOT DETECT); Parainfluenza Virus Type 3 Not Detected (NOT DETECT); Parainfluenza Virus Type 4 Not Detected (NOT DETECT); Respiratory Syncytial Virus A Not Detected (NOT DETECT); Respiratory Syncytial Virus B Not Detected (NOT DETECT); SARS-COV-2 Not Detected (NOT DETECT)
[2022-08-25] MEDS: sodium chloride 0.9% 1,000 ML 100 ML IV (21:51)
[2022-08-25] MEDS: apixaban 5 mg Tablet PO (21:51)
--- NOTE | 2022-08-25 21:58 | P.CONIM_ITS ---
Providers/Reason For Consult Consulting Physician/Specialty*: Dr. Wilkerson Reason for Consult*: Pericardial effusion Congestive heart failure Requesting Physician: Dr. Wilkerson Attending Physician: Karyn Wilkerson MD Primary Care Provider: Rebekah Nix DO History of Present Illness History of Present Illness Mel Ferrara is a 87 year old female past medical history significant for DNR/DNI moderately depressed LV dysfunction, congestive heart failure systolic type, history of recent pulmonary embolism, history of left ventricular thrombus who did not qualify for hospice brought was sent home on palliative treatment came back with mental status changes, she was admitted with possible worsening of congestive heart failure pneumonia and cephalopathy given antibiotics and IV fluid. Echocardiogram was performed which was limited and suggestive of moderate pericardial effusion with suspicion of pretamponade. I have been asked to assist in her care. Upon consult I immediately saw the patient. She was stable vital [place] heart rate was slightly tachycardic with range of 100 to 112, blood pressure 113/72. Due to confusion she is not able to give me her history. I spoke to her who asked me that patient is DNR/DNI and we should be treating her medically however if needed can further discuss invasive treatment if time warrant? Review of Systems Narrative: Review of system is not possible at the moment due to confusional state of the patient however per her nurses and staff no chest pain no review of shortness of breath PND orthopnea. Medications/Allergies Home Medications Medication Instructions Recorded Confirmed Last Taken Type aspirin 81 mg tablet,delayed 81 mg PO DAILY #30 tabs 12/02/19 08/25/22 08/18/22 Rx release (Adult Low Dose Aspirin) atorvastatin 40 mg tablet (Lipitor) 40 mg PO DAILY #30 tabs 12/02/19 08/25/22 08/18/22 Rx fluticasone propionate 50 2 spray intranasal DAILY PRN 12/02/19 08/25/22 08/18/22 History mcg/actuation nasal Allergy Symptoms spray,suspension (Flonase Allergy Relief) melatonin 10 mg capsule 10 mg PO DAILY 12/02/19 08/25/22 08/18/22 History omeprazole 20 mg capsule,delayed 20 mg PO DAILY 12/02/19 08/25/22 08/18/22 History release linaclotide 145 mcg capsule 145 mcg PO DAILY #30 caps 08/29/21 08/25/22 08/18/22 Rx (Linzess) ascorbic acid (vitamin C) 1,000 mg 1 g PO DAILY 09/07/21 08/25/22 08/18/22 History tablet docusate sodium 100 mg capsule 100 mg PO DAILY 02/08/22 08/25/22 08/18/22 History (Colace) methenamine hippurate 1 gram tablet See Rx Instructions .Route 02/08/22 08/25/22 08/18/22 Rx .COMPLEX #60 tabs escitalopram oxalate 20 mg tablet 20 mg PO DAILY 08/19/22 08/25/22 Unknown History levothyroxine 50 mcg tablet 50 mcg PO DAILY 08/19/22 08/25/22 08/18/22 History apixaban 5 mg (74 tabs) tablets in See Rx Instructions PO .COMPLEX 08/24/22 08/25/22 Unknown Rx a dose pack ([employer] DVT-PE Treat #74 ea 30D Start) clonazepam 1 mg tablet 1 mg PO DAILY #30 tabs 08/24/22 08/25/22 08/18/22 Rx levofloxacin 750 mg tablet 750 mg PO DAILY@0600 #5 tabs 08/24/22 08/25/22 Unknown Rx metoprolol tartrate 25 mg tablet 25 mg PO BID #60 tabs 08/24/22 08/25/22 Unknown Rx oxycodone-acetaminophen 5 mg-325 1 tab PO Q8H PRN pain #20 tabs 08/24/22 08/25/22 Unknown Rx mg tablet quetiapine 50 mg tablet 50 mg PO BID #30 tabs 08/24/22 08/25/22 08/18/22 Rx sennosides 8.6 mg-docusate sodium 1 tab PO DAILY #30 tabs 08/24/22 08/25/22 Unknown Rx 50 mg tablet (Stool Softener-Laxative) alfuzosin 10 mg tablet,extended 10 mg PO DAILY 08/25/22 08/25/22 Unknown History release 24 hr multivit with 1 tab PO DAILY 08/25/22 08/25/22 Unknown History taqeioyh-juve-HW-lutein 8 mg iron-400 mcg-300 mcg tablet (Centrum Silver Women) vitamin B12 2,500 mcg-folic acid 1 tab PO DAILY 08/25/22 08/25/22 Unknown History 400 mcg disintegrating tablet Allergies Allergy/AdvReac Type Severity Reaction Status Date / Time Penicillins Allergy Unknown ALGY-Rash Verified 08/25/22 10:47 Sulfa (Sulfonamide Allergy Unknown ALGY-Hives Verified 08/25/22 10:47 Antibiotics) Current Medications Generic Name Dose Route Start Last Admin Trade Name Freq PRN Reason Stop Dose Admin Apixaban 5 mg 08/25/22 21:00 08/25/22 21:51 Apixaban 5 Mg Tablet PO 5 mg BID@0900,2100 ASHLEY Administration Sodium Chloride 1,000 mls @ 100 mls/hr 08/25/22 21:30 08/25/22 21:51 Sodium Chloride 0.9% IV 100 mls/hr .Q10H ASHLEY Administration Non-Formulary Medication 1 tab 08/25/22 18:00 08/25/22 17:47 Methenamine Hippurate PO Not Given BID ASHLEY Pantoprazole Sodium 40 mg 08/25/22 12:30 08/25/22 15:21 Pantoprazole 40 Mg Sdv IVP 40 mg Q24H ASHLEY Administration PFSH Acute PFSH: Medical History Acute kidney injury Acute urinary retention Anxiety disorder -anxiolytics PRN, resume clonazepam on d/c CVA (cerebral vascular accident) Difficult [place] catheter placement Encounter for long-term (current) use of NSAIDs Encounter for narcotic contract discussion Episode of transient neurologic symptoms Genital atrophy of female GERD (gastroesophageal reflux disease) -on PPI HTN (hypertension) -hypertensive today; continue to monitor vital signs -on HCTZ 25 mg daily, may need this titrated if continued hypertension Hypothyroidism -TSH-low (0.11) -on levothyroxine, recently adjusted by PCP Left ventricular thrombus Lower extremity weakness -Reports bilateral lower extremity weakness, significantly worse on the left with associated progressive difficulty with ambulation Memory loss Osteoarthritis Palliative care status Pericardial effusion Pneumonia Pulmonary embolism Rectocele Recurrent UTI Tachycardia UTI (urinary tract infection) -has been on antibiotic treatment with macrobid for UTI (day 03/21) -UA here not indicative of infection Surgical History H/O laminectomy H/O: hysterectomy History of appendectomy History of back surgery History of hip replacement S/P left knee arthroscopy Family History Son Alcohol abuse Psychiatric illness Bipolar disorder Mother , at age 91 Cancer Father , at age 42 MVA (motor vehicle accident) Social History Smoking and tobacco status: former smoker Quit status (tobacco): has quit using tobacco Former quit date comment: Remote history Second hand smoke exposure: No Alcohol intake: never Household members: spouse Marital status: Current occupational status: retired Vitals/I&O/Wt Last Vital Signs Temp 97.5 F L 08/25/22 20:00 Pulse 111 H 08/25/22 20:00 Resp 27 H 08/25/22 20:00 BP 113/72 08/25/22 20:00 Pulse Ox 96 08/25/22 20:00 O2 Del Method 08/25/22 20:00 O2 Flow Rate 2 08/25/22 20:00 08/25/22 08/25/22 08/25/22 06:59 14:59 22:59 Intake Total 1450 / 1450 Balance 1450 / 1450 Weight last 48 hrs Weight 150 lb 12.8 oz Weight 160 lb Physical Exam Narrative: Patient is alert awake but confused No elevated JVD Lungs by basilar crackles more on the right than left Heart audible clear sound S1-S2 no murmur rub or gallop [employer] grossly nonfocal except confusion Lower extremity 1+ edema Data 08/25/22 10:12 08/25/22 10:12 Other Labs: Twelve-lead EKG sinus rhythm normal axis right bundle branch block no electrical alternans Micro: Microbiology 08/25/22 10:08 Blood Culture - Preliminary Blood SPECIMEN COLLECTED 08/25/22 10:12 Blood Culture - Preliminary Blood SPECIMEN COLLECTED A&P Assessment and plan (1) Pericardial effusion: My physical examination and by overall echo criteria patient is not in tamponade. She is stable vital [place], there are no pulses paradoxus, no electrical alternans on the EKG, heart sounds are clear not muffled, echocardiogram she has moderate effusion no significant diastolic collapse and most of the view however in one view there is suspicion but since this is not present in other views it will be less likely, there is no respirophasic mitral or tricuspid valve variation, IVC is dilated but patient is also in congestive heart failure. Patient also had Eliquis on board for now since patient is not in tamponade and because of the fact she is doing not resuscitate DO NOT INTUBATE and as per and patient wishes they would like to be treated medically we will continue to monitor and treat her medically however as per patient if required he may can discontinue DNR DNI depending upon her condition. We will continue to monitor her. We will try to diurese her since she is holding her blood pressure (2) Pleural effusion: Secondary to congestive heart failure/possible pneumonia: We will gently diurese her. (3) Altered mental status: As per medicine (4) Systolic congestive heart failure: Will gently diurese her with 20 mg of IV Lasix Plan As above. Consult Attestations Medical Necessity Statement: Patient require continuation hospitalization for above defined care Coding Level of Care Code Acute Code for Chg Fwd Diagnoses Pericardial effusion I31.39 Pleural effusion J90 Altered mental status R41.82 Systolic congestive heart failure I50.20
[2022-08-26] VITALS (8 sets, daily range): BP systolic 102–126; BP diastolic 66–81; PULSE 101–108; RESP 14–28; TEMP 36.1–36.5; O2SAT 94–98
[2022-08-26] MEDS: aztreonam 1,000 MG in sodium chloride 0.9% (plus) 50 ML 100 MG IV ×2 (01:29→13:56)
[2022-08-26 05:08] LABS: Basophils # 0.1 10^3/uL (0.0-0.1); Basophils % 0.5 %; Eosinophils # 0.2 10^3/uL (0.0-0.8); Eosinophils % 2.1 %; Hematocrit 37.7 % (37.0-47.0); Hemoglobin 10.9 g/dL (11.5-15.3); Lymphocytes # 1.2 10^3/uL (0.8-4.8); Lymphocytes % 12.2 %; Mean Corpuscular HGB Conc 28.9 g/dL (30.0-36.0); Mean Corpuscular Hemoglobin 26.1 pg (28.0-34.0); Mean Corpuscular Volume 90.2 fl (81-99); Mean Platelet Volume 9.6 fL (7.4-10.4); Monocytes # 0.7 10^3/uL (0.2-0.9); Monocytes % 7.6 %; Neutrophils # 7.22 10^3/uL (1.8-7.7); Neutrophils % 76.5 %; Nucleated Red Blood Cells % 0 %; Platelet Count 261 10^3/cmm (130-400); Red Blood Count 4.18 10^6/uL (4.1-5.3); White Blood Count 9.4 10^3/uL (4.0-10.0)
[2022-08-26 05:41] LABS: Alanine Aminotransferase 15 U/L (0-33); Albumin Level 2.8 g/dL (3.5-5.2); Alkaline Phosphatase 77 U/L (35-105); Anion Gap 21.1 (5-19); Aspartate Amino Transferase 23 U/L (0-32); Blood Urea Nitrogen 33 mg/dL (8-23); Calcium 9.2 mg/dL (8.5-10.5); Carbon Dioxide 13 mmol/L (22-29); Chloride 111 mmol/L (98-107); Globulin 3.4 g/dL (1.3-4.6); Glucose 122 mg/dL (65-115); Magnesium 2.3 mg/dL (1.7-2.3); Osmolality Calculated 301 mOsm/kg (285-295); Potassium 4.1 mmol/L (3.5-5.1); Sodium 141 mmol/L (136-145); Total Bilirubin 0.6 mg/dL (0.15-1.2); Total Protein 6.2 g/dL (6.6-8.7)
--- NOTE | 2022-08-26 10:45 | P.PN_ITS ---
Subjective Subjective: Patient still confused breathing fine stable vital [place] slightly tachycardic Vitals/I&O/Wt Last Vital Signs Temp 97.7 F 08/26/22 08:27 Pulse 105 H 08/26/22 08:27 Resp 20 H 08/26/22 04:00 BP 114/74 08/26/22 08:27 Pulse Ox 97 08/26/22 08:27 O2 Del Method 08/26/22 08:27 O2 Flow Rate 2 08/26/22 04:00 08/25/22 08/26/22 08/26/22 22:59 06:59 14:59 Intake Total 2170 / 2170 866.667 / 3036.667 Output Total 600 / 600 100 / 700 Balance 1570 / 1570 766.667 / 2336.667 Weight last 48 hrs Weight 150 lb 12.8 oz Weight 160 lb Physical Exam Narrative: Patient is alert awake but remains confused, she has asked me that she would like to drink water No elevated JVD Lungs by basilar crackles more on the right than left Heart audible clear sound S1-S2 no murmur rub or gallop [employer] grossly nonfocal except confusion Lower extremity 1+ edema Data 08/26/22 04:44 08/26/22 04:44 Micro: Microbiology 08/25/22 10:08 Blood Culture - Preliminary Blood NEGATIVE TO DATE 08/25/22 10:12 Blood Culture - Preliminary Blood NEGATIVE TO DATE A&P Assessment and plan (1) Pericardial effusion: My physical examination and by overall echo criteria patient is not in tamponade. She is stable vital [place], there are no pulses paradoxus, no electrical alternans on the EKG, heart sounds are clear not muffled, echocardiogram she has moderate effusion no significant diastolic collapse and most of the view however in one view there is suspicion but since this is not present in other views it will be less likely, there is no respirophasic mitral or tricuspid valve variation, IVC is dilated but patient is also in congestive heart failure. Patient also had Eliquis on board for now since patient is not in tamponade and because of the fact she is doing not resuscitate DO NOT INTUBATE and as per and patient wishes they would like to be treated medically we will continue to monitor and treat her medically however as per nish siddiqi if required he may can discontinue DNR DNI depending upon her condition. We will continue to monitor her. We will try to diurese her since she is holding her blood pressure On today's visit dated 08/26/2022 patient remained stable vital [place]. She is not in tamponade. Continue to treat medically. Patient is DNR/DNI. (2) Pleural effusion: Secondary to congestive heart failure/possible pneumonia: Continue antibiotics. Will give her IV Lasix 20 mg (3) Altered mental status: As per medicine (4) Systolic congestive heart failure: Diuresis with IV Lasix 20 mg Plan As above. Attestations Medical Necessity Statement*: Patient require continuation hospitalization for above defined care Coding Level of Care Code Acute Code for g Fwd Diagnoses Pericardial effusion I31.39 Pleural effusion J90 Altered mental status R41.82 Systolic congestive heart failure I50.20
[2022-08-26] MEDS: vancomycin 750 MG in sodium chloride 0.9% 250 ML 250 MG IV (11:44)
--- NOTE | 2022-08-26 12:02 | PM.PN ---
Subjective Subjective: Seen at bedside with 3 friends, not in room Pt appears confused. States she is feeling improved but scared of surgery. Discussed that surgery is unlikely at this point and we will treat her medically Denies CP. admits to SOB Vitals/I&O/Wt Last Vital Signs Temp 97.7 F 08/26/22 08:27 Pulse 107 H 08/26/22 11:40 Resp 15 08/26/22 11:40 BP 121/77 08/26/22 11:40 Pulse Ox 96 08/26/22 11:40 O2 Del Method 08/26/22 08:27 O2 Flow Rate 2 08/26/22 04:00 08/25/22 08/26/22 08/26/22 22:59 06:59 14:59 Intake Total 2170 / 2170 866.667 / 3036.667 0 / 0 Output Total 600 / 600 100 / 700 Balance 1570 / 1570 766.667 / 2336.667 0 / 0 Weight last 48 hrs Weight 150 lb 12.8 oz Weight 160 lb Physical Exam Narrative: General: AO to person, not to place or time. , no acute distress, psych: appropriate mood and affect. poor judgment and insight. No suicidal or homicidal ideation. confused Head: atraumatic, normocephalic, no mass/lesions Ears: clear external auditory canals, bilat TM w/o bulging/fluid/discharge. TM with visible landmarks, good light reflex. Hearing intact Eyes: conjunctiva clear w/o exudate or hemorrhage. non-icteric, EOM intact, PERRLA. no signs of nystagmus Nose: nasal mucosa pink, septum midline Oropharynx: good dentition, pink moist mucosa, non-deviated tongue, no buccal nodules/lesions. no pharyngeal exudate Neck: FROM, no lymphadenopathy, no tracheal deviation, non tender, thyroid gland normal w/o mass. supple Chest: atraumatic, symmetrical CVD: RRR, normal S1 and S2, no M/R/G. 2+ pulse x 4 extremities, 1+ edema to knees bilat Lungs: clear lung sounds in all [place] with some bibasilar crackles audible more on L than R, no rhonchi, wheezing, rales. Abdomen: NT, ND, soft, NABS. No hepatosplenomegaly, no mass. umbilicus midline w/o herniation : shabazz present with 100cc dark urine Neuro: CNII-XII grossly intact. No atrophy, weakness, tremors or clonus.? 2+ DTR, no sensory abnormalities. Skin:? no rash, vesicles, lesions. Data 08/26/22 04:44 08/26/22 04:44 Micro: Microbiology 08/25/22 11:21 Urine Culture - Preliminary Urine,Clean Catch 08/25/22 10:08 Blood Culture - Preliminary Blood NEGATIVE TO DATE 08/25/22 10:12 Blood Culture - Preliminary Blood NEGATIVE TO DATE Other data: Previous discharge summary: 87-year-old female for generalized weakness and fatigue, she was diagnosed with pneumonia at the time of admission, required antibiotics, CT was done because she remained tachycardic, it showed pulmonary embolism, she was anticoagulated with Lovenox, echo showed left ventricular thrombus, multiple family meetings elected, and the patient both decided to pursue home health services with palliative care, Dr. Posey was also consulted who agreed with the plan, patient is extremely weak and lethargic, does not have focal deficits, head and neck CTA did not show any acute stroke related changes, patient is severely deconditioned, very anxious appearing, requiring 2 L of oxygen at the time of discharge, and patient does not want retirement placement for now however considering her weakness she is high risk for readmission and might need retirement placement in the future, considering palliative care patient and her both decided against Coumadin which was recommended for left radical thrombus and PE, she does not want frequent INR checks, agreeable with Eliquis for now.? Please note her EF is reduced as well to 40%, did not want to pursue any angiogram or further investigation. A&P Assessment and plan (1) Pericardial effusion: Seen by Dr. Yeboah this AM Concern for pericardia effusion. doest not meet criteria for tamponade Will slowly diures IV lasix 20mg current DNR/DNI. possibly will be rescinded per . (2) Pleural effusion: Secondary to congestive heart failure/possible pneumonia: Continue antibiotics. Will give her IV Lasix 20 mg (3) Altered mental status: As per medicine (4) Systolic congestive heart failure: Diuresis with IV Lasix 20 mg (5) Heart failure: diures continue ASA, lipitor, Eliquis (6) Pneumonia: Continue IV Vanc, aztreonam and levofloxacin. (7) Sepsis: Pt s/p 30 mg/kg sepsis bolus NS 60ml/hr WBC improving prelim Bcx and Ucx negative (8) Constipation: Continue linzess, senna/docusate (9) Protein-calorie malnutrition, moderate: start diet once less altered. puree diet Plan As above. Can advance diet to cardiac given no surgery today. 1.5L fluid restriction on patient Hold alfuzosin at this time Goals of care discussed with . DNR/DNI PT/OT once medically stable #UTI #Sepsis 2/2 to unknown source, possibly pneumonia, UTI or cardiogenic etiology #PE, recent diagnosis #Left ventricular thomrbus #Constipation #GERD #Pericardial effusion, possible tamponade #Acute on chronic congestive HFrEF, diastolic failure Attestations Medical Necessity Statement*: requires hospitalization for cardiac support Coding Level of Care Code 76373 Diagnoses Pericardial effusion I31.39 Pleural effusion J90 Altered mental status R41.82 Systolic congestive heart failure I50.20 Heart failure I50.9 Pneumonia J18.9 Sepsis A41.9 Constipation K59.00 Protein-calorie malnutrition, moderate E44.0
[2022-08-26] MEDS: pantoprazole 40 mg SDV IVP (14:00)
[2022-08-26] MEDS: NON-FORMULARY MEDICATION (Methenamine Hippurate 1 gram tablet) 1 EACH PO (17:36)
[2022-08-26] MEDS: oxyCODONE-APAP 5-325 mg Tablet 1 TAB PO (17:36)
[2022-08-27] VITALS (8 sets, daily range): BP systolic 105–122; BP diastolic 65–80; PULSE 103–107; RESP 16–20; TEMP 35.8–36.6; O2SAT 95–98
[2022-08-27] MEDS: aztreonam 1,000 MG in sodium chloride 0.9% (plus) 50 ML 100 MG IV ×2 (00:42→12:59)
[2022-08-27 04:24] LABS: Basophils # 0.1 10^3/uL (0.0-0.1); Basophils % 0.7 %; Eosinophils # 0.3 10^3/uL (0.0-0.8); Eosinophils % 3.3 %; Hematocrit 38.1 % (37.0-47.0); Hemoglobin 11.3 g/dL (11.5-15.3); Lymphocytes # 1.6 10^3/uL (0.8-4.8); Mean Corpuscular HGB Conc 29.7 g/dL (30.0-36.0); Mean Corpuscular Hemoglobin 26.2 pg (28.0-34.0); Mean Corpuscular Volume 88.2 fl (81-99); Mean Platelet Volume 9.5 fL (7.4-10.4); Monocytes # 0.9 10^3/uL (0.2-0.9); Neutrophils # 7.37 10^3/uL (1.8-7.7); Neutrophils % 71.1 %; Nucleated Red Blood Cells % 0.2 %; Platelet Count 261 10^3/cmm (130-400); Red Blood Count 4.32 10^6/uL (4.1-5.3); Red Cell Distribution Width 15.1 % (12.1-15.1); White Blood Count 10.4 10^3/uL (4.0-10.0)
[2022-08-27 04:46] LABS: Alanine Aminotransferase 16 U/L (0-33); Albumin Level 2.9 g/dL (3.5-5.2); Alkaline Phosphatase 85 U/L (35-105); Anion Gap 20.2 (5-19); Aspartate Amino Transferase 24 U/L (0-32); Blood Urea Nitrogen 31 mg/dL (8-23); Calcium 9.4 mg/dL (8.5-10.5); Carbon Dioxide 17 mmol/L (22-29); Chloride 109 mmol/L (98-107); Globulin 3.5 g/dL (1.3-4.6); Glucose 114 mg/dL (65-115); Osmolality Calculated 301 mOsm/kg (285-295); Potassium 4.2 mmol/L (3.5-5.1); Sodium 142 mmol/L (136-145); Total Bilirubin 0.6 mg/dL (0.15-1.2); Total Protein 6.4 g/dL (6.6-8.7)
[2022-08-27] MEDS: aspirin 81 mg EC Tablet PO (09:19)
[2022-08-27] MEDS: atorvastatin 40 mg Tablet PO (09:19)
[2022-08-27] MEDS: docusate sodium 100 mg Capsule PO (09:19)
[2022-08-27] MEDS: multivitamin therapeutic Tablet 1 TAB PO (09:19)
[2022-08-27] MEDS: escitalopram 10 mg Tablet 20 MG PO (09:19)
[2022-08-27] MEDS: sennosides-docusate Tablet 1 TAB PO (09:19)
[2022-08-27] MEDS: levothyroxine 50 mcg Tablet PO (09:19)
--- NOTE | 2022-08-27 11:19 | PM.PN ---
Subjective Subjective: Seen at bedside. no family members in room. pt less confused than before. able to answer questions. feeling improved but still having some trouble breathing No events overnight. Pt states she wants to go to [place]. will discuss with once he arrives. medically more stable. will start PT/OT Vitals/I&O/Wt Last Vital Signs Temp 97.7 F 08/27/22 08:00 Pulse 104 H 08/27/22 08:00 Resp 17 08/27/22 08:00 BP 112/73 08/27/22 08:00 Pulse Ox 96 08/27/22 08:00 O2 Del Method 08/27/22 08:00 O2 Flow Rate 2 08/27/22 07:48 08/26/22 08/27/22 08/27/22 22:59 06:59 14:59 Intake Total 913.333 / 1033.333 550 / 1583.333 120 / 120 Output Total 275 / 275 Balance 638.333 / 758.333 550 / 1308.333 120 / 120 Weight last 48 hrs Weight 150 lb 12.8 oz Physical Exam Narrative: General: AO to person, not to place or time. , no acute distress, psych: appropriate mood and affect. poor judgment and insight. No suicidal or homicidal ideation. confused Head: atraumatic, normocephalic, no mass/lesions Ears: clear external auditory canals, bilat TM w/o bulging/fluid/discharge. TM with visible landmarks, good light reflex. Hearing intact Eyes: conjunctiva clear w/o exudate or hemorrhage. non-icteric, EOM intact, PERRLA. no signs of nystagmus Nose: nasal mucosa pink, septum midline Oropharynx: good dentition, pink moist mucosa, non-deviated tongue, no buccal nodules/lesions. no pharyngeal exudate Neck: FROM, no lymphadenopathy, no tracheal deviation, non tender, thyroid gland normal w/o mass. supple Chest: atraumatic, symmetrical CVD: RRR, normal S1 and S2, no M/R/G. 2+ pulse x 4 extremities, 1+ edema to knees bilat Lungs: clear lung sounds in all [place] with some bibasilar crackles audible more on L than R, no rhonchi, wheezing, rales. Abdomen: NT, ND, soft, NABS. No hepatosplenomegaly, no mass. umbilicus midline w/o herniation : shabazz present with 100cc dark urine Neuro: CNII-XII grossly intact. No atrophy, weakness, tremors or clonus.? 2+ DTR, no sensory abnormalities. Skin:? no rash, vesicles, lesions. Data 08/27/22 03:42 08/27/22 03:42 Micro: Microbiology 08/25/22 11:21 Urine Culture - Final Urine,Clean Catch 08/25/22 10:08 Blood Culture - Preliminary Blood NEGATIVE TO DATE 08/25/22 10:12 Blood Culture - Preliminary Blood NEGATIVE TO DATE A&P Assessment and plan (1) Pericardial effusion: followed by Dr. Yeboah Pericardial effusion. not tamponade tolerated IV lasix 20mg well yday, will need additional dosing. restart home lasix 40m PO qd current DNR/DNI. possibly will be rescinded per (2) Pleural effusion: Secondary to congestive heart failure/possible pneumonia: Continue antibiotics. Will give her IV Lasix 20 mg (3) Altered mental status: As per medicine (4) Systolic congestive heart failure: Diuresis with IV Lasix 20 mg (5) Heart failure: diures continue ASA, lipitor, Eliquis (6) Pneumonia: Continue IV Vanc, aztreonam and levofloxacin. (7) Sepsis: NS 60ml/hr WBC stable prelim Bcx and Ucx negative (8) Constipation: Continue linzess, senna/docusate (9) Protein-calorie malnutrition, moderate: puree diet Plan cardiac diet 1.5L fluid restriction Hold alfuzosin at this time restart lasix 40m qd PT/OT will discuss with that pt would benefit from [place] Goals of care discussed with . DNR/DNI #UTI #Sepsis 2/2 to unknown source, possibly pneumonia, UTI or cardiogenic etiology #PE, recent diagnosis #Left ventricular thomrbus #Constipation #GERD #Pericardial effusion, possible tamponade #Acute on chronic congestive HFrEF, diastolic failure Attestations Medical Necessity Statement*: SNF placement and medical management Coding Level of Care Code 24519 Diagnoses Pericardial effusion I31.39 Pleural effusion J90 Altered mental status R41.82 Systolic congestive heart failure I50.20 Heart failure I50.9 Pneumonia J18.9 Sepsis A41.9 Constipation K59.00 Protein-calorie malnutrition, moderate E44.0
[2022-08-27] MEDS: vancomycin 750 MG in sodium chloride 0.9% 250 ML 250 MG IV (11:21)
--- NOTE | 2022-08-27 12:18 | PM.PN ---
Subjective Subjective: Patient still does not talk much speaking monotonous voice but awake looks fine and sitting in the chair without any distress stable vital Vitals/I&O/Wt Last Vital Signs Temp 97.8 F 08/27/22 12:00 Pulse 107 H 08/27/22 12:00 Resp 18 08/27/22 12:00 BP 115/72 08/27/22 12:00 Pulse Ox 96 08/27/22 08:00 O2 Del Method 08/27/22 12:00 O2 Flow Rate 2 08/27/22 07:48 08/26/22 08/27/22 08/27/22 22:59 06:59 14:59 Intake Total 913.333 / 1033.333 550 / 1583.333 120 / 120 Output Total 275 / 275 Balance 638.333 / 758.333 550 / 1308.333 120 / 120 Weight last 48 hrs Weight 150 lb 12.8 oz Physical Exam Narrative: Patient is alert awake No elevated JVD Lungs mild deep inspiratory crackles most likely due to atelectasis Heart audible regular audible sound S1-S2 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 She is stable vital [place], there are no pulses paradoxus, no electrical alternans on the EKG, heart sounds are clear not muffled, echocardiogram she has moderate effusion no significant diastolic collapse and most of the view however in one view there is suspicion but since this is not present in other views it will be less likely, there is no respirophasic mitral or tricuspid valve variation, IVC is dilated but patient is also in congestive heart failure. Patient also had Eliquis on board for now since patient is not in tamponade and because of the fact she is doing not resuscitate DO NOT INTUBATE and as per and patient wishes they would like to be treated medically we will continue to monitor and treat her medically however as per patient if required he may can discontinue DNR DNI depending upon her condition. We will continue to monitor her. We will try to diurese her since she is holding her blood pressure On today's visit dated 08/26/2022 patient remained stable vital [place]. She is not in tamponade. Continue to treat medically. Patient is DNR/DNI. On today's visit dated 08/27/2022 patient continues to do fine from a cardiac perspective she is stable vital [place] no clinical indication of worsening of pericardial effusion, patient continued to be DNR/DNI we will continue to treat medically (2) Pleural effusion: Continue IV Lasix 20 mg (3) Altered mental status: As per medicine (4) Systolic congestive heart failure: Diuresis with IV Lasix 20 mg (5) NSTEMI (non-ST elevated myocardial infarction): Continue to treat medically denies any chest pain. Continue aspirin statin and beta-mackenzie. Patient is not a good candidate for left heart cath. Plan As above. Attestations Medical Necessity Statement*: Patient require continuation hospitalization for above defined care Coding Level of Care Code Acute Code for Chg Fwd Diagnoses Pericardial effusion I31.39 Pleural effusion J90 Altered mental status R41.82 Systolic congestive heart failure I50.20 NSTEMI (non-ST elevated myocardial infarction) I21.4
[2022-08-27] MEDS: levofloxacin-dextrose 5 % 750 MG/150 ML PREMIX 100 MG IV (12:59)
[2022-08-27] MEDS: pantoprazole 40 mg SDV IVP (12:59)
[2022-08-27] MEDS: NON-FORMULARY MEDICATION (Methenamine Hippurate 1 gram tablet) 1 EACH PO (17:29)
[2022-08-27] MEDS: lanolin oint 7 gm 1 APPLIC TOPICAL (19:55)
[2022-08-28] VITALS (8 sets, daily range): BP systolic 111–125; BP diastolic 66–79; PULSE 102–110; RESP 14–18; TEMP 36.4–36.8; O2SAT 94–97
[2022-08-28] MEDS: aztreonam 1,000 MG in sodium chloride 0.9% (plus) 50 ML 100 MG IV ×2 (00:58→12:00)
[2022-08-28 03:32] LABS: Basophils # 0.1 10^3/uL (0.0-0.1); Basophils % 0.5 %; Eosinophils # 0.2 10^3/uL (0.0-0.8); Eosinophils % 2.1 %; Hematocrit 41.5 % (37.0-47.0); Hemoglobin 12.5 g/dL (11.5-15.3); Lymphocytes # 1.1 10^3/uL (0.8-4.8); Lymphocytes % 9.6 %; Mean Corpuscular HGB Conc 30.1 g/dL (30.0-36.0); Mean Corpuscular Hemoglobin 26.2 pg (28.0-34.0); Mean Platelet Volume 9.1 fL (7.4-10.4); Monocytes # 0.8 10^3/uL (0.2-0.9); Monocytes % 7.4 %; Neutrophils # 9.02 10^3/uL (1.8-7.7); Neutrophils % 79.7 %; Nucleated Red Blood Cells % 0 %; Platelet Count 273 10^3/cmm (130-400); Red Blood Count 4.77 10^6/uL (4.1-5.3); Red Cell Distribution Width 14.9 % (12.1-15.1); White Blood Count 11.3 10^3/uL (4.0-10.0)
[2022-08-28 03:55] LABS: Alanine Aminotransferase 21 U/L (0-33); Albumin Level 3.2 g/dL (3.5-5.2); Alkaline Phosphatase 75 U/L (35-105); Anion Gap 15.8 (5-19); Aspartate Amino Transferase 38 U/L (0-32); Blood Urea Nitrogen 26 mg/dL (8-23); Calcium 9.5 mg/dL (8.5-10.5); Carbon Dioxide 17 mmol/L (22-29); Chloride 110 mmol/L (98-107); Globulin 3.6 g/dL (1.3-4.6); Glucose 142 mg/dL (65-115); Osmolality Calculated 295 mOsm/kg (285-295); Potassium 3.8 mmol/L (3.5-5.1); Sodium 139 mmol/L (136-145); Total Bilirubin 0.7 mg/dL (0.15-1.2); Total Protein 6.8 g/dL (6.6-8.7)
[2022-08-28] MEDS: FUROsemide 40 mg Tablet PO (08:45)
[2022-08-28] MEDS: levothyroxine 50 mcg Tablet PO (08:45)
[2022-08-28] MEDS: sennosides-docusate Tablet 1 TAB PO (08:45)
[2022-08-28] MEDS: NON-FORMULARY MEDICATION (Linaclotide [Linzess] 145 mcg capsule) 145 EACH PO (08:45)
[2022-08-28] MEDS: aspirin 81 mg EC Tablet PO (08:45)
[2022-08-28] MEDS: atorvastatin 40 mg Tablet PO (08:45)
[2022-08-28] MEDS: NON-FORMULARY MEDICATION (Methenamine Hippurate 1 gram tablet) 1 EACH PO ×2 (08:45→17:06)
[2022-08-28] MEDS: multivitamin therapeutic Tablet 1 TAB PO (08:45)
[2022-08-28] MEDS: escitalopram 10 mg Tablet 20 MG PO (08:45)
[2022-08-28] MEDS: docusate sodium 100 mg Capsule PO (08:45)
[2022-08-28] MEDS: vancomycin 750 MG in sodium chloride 0.9% 250 ML 250 MG IV (10:44)
--- NOTE | 2022-08-28 11:06 | PM.PN ---
Subjective Subjective: Seen at bedside. no changes from yesterday continues to have some confusion but i believe this to be baseline. intermittent SOB, restarted home lasix will await CM/SS for NH placement. and patient in agreement. Vitals/I&O/Wt Last Vital Signs Temp 97.5 F L 08/28/22 04:00 Pulse 110 H 08/28/22 08:00 Resp 18 08/28/22 08:00 BP 116/75 08/28/22 08:00 Pulse Ox 95 08/28/22 08:00 O2 Del Method 08/27/22 16:00 O2 Flow Rate 2 08/27/22 20:00 08/27/22 08/28/22 08/28/22 22:59 06:59 14:59 Intake Total 930 / 1150 50 / 1200 Output Total 400 / 400 275 / 675 Balance 530 / 750 -225 / 525 Physical Exam Narrative: General: AO to person, not to place or time. , no acute distress, psych: appropriate mood and affect. poor judgment and insight. No suicidal or homicidal ideation. confused Head: atraumatic, normocephalic, no mass/lesions Eyes: conjunctiva clear w/o exudate or hemorrhage. non-icteric, EOM intact, PERRLA. no signs of nystagmus Neck: FROM, no lymphadenopathy, no tracheal deviation, non tender, thyroid gland normal w/o mass. supple Chest: atraumatic, symmetrical CVD: RRR, normal S1 and S2, no M/R/G. 2+ pulse x 4 extremities, 1+ edema to knees bilat Lungs: clear lung sounds in all [place] with some bibasilar crackles audible more on L than R, no rhonchi, wheezing, rales. Abdomen: NT, ND, soft, NABS. No hepatosplenomegaly, no mass. umbilicus midline w/o herniation : shabazz present with 100cc dark urine Neuro: CNII-XII grossly intact. No atrophy, weakness, tremors or clonus.? 2+ DTR, no sensory abnormalities. Skin:? no rash, vesicles, lesions. Data 08/28/22 02:57 08/28/22 02:57 Micro: Microbiology 08/25/22 11:21 Urine Culture - Final Urine,Clean Catch A&P Assessment and plan (1) Pericardial effusion: followed by Dr. Yeboah Pericardial effusion. not tamponade restarted home lasix 40mg PO at this time no surgical intervention current DNR/DNI. possibly will be rescinded per (2) Pleural effusion: Secondary to congestive heart failure presumptive PNA at time of admission; however WBC and Cx have been negative. no infectous process. Abx stopped 08/28/22 (3) Altered mental status: baseline confusion likely 2/2 dementia (4) Systolic congestive heart failure: diuresis responsive restarted home lasix continue ASA, lipitor, eliquis (5) Pneumonia: blood cultures negativ x 2 days will stop IV Abx at this time (6) Sepsis: sepsis resolved will d/c Abx as Cx negative and no signs of infectous process (7) Constipation: Continue linzess, senna/docusate (8) Protein-calorie malnutrition, moderate: puree diet Plan cardiac diet 1.5L fluid restriction, encourage PO intake Hold alfuzosin at this time restart lasix 40m qd PT/OT CM/SS for placement Goals of care discussed with . DNR/DNI #UTI #Sepsis 2/2 to unknown source, possibly pneumonia, UTI or cardiogenic etiology #PE, recent diagnosis #Left ventricular thomrbus #Constipation #GERD #Pericardial effusion, possible tamponade #Acute on chronic congestive HFrEF, diastolic failure Attestations Medical Necessity Statement*: Patient require continuation hospitalization for above defined care Coding Level of Care Code 95263 Diagnoses Pericardial effusion I31.39 Pleural effusion J90 Altered mental status R41.82 Systolic congestive heart failure I50.20 Pneumonia J18.9 Sepsis A41.9 Constipation K59.00 Protein-calorie malnutrition, moderate E44.0
[2022-08-28] MEDS: pantoprazole 40 mg SDV IVP (12:53)
--- NOTE | 2022-08-28 13:56 | PC.SOCIAL ---
Pg 2 IMM Explained to pt Pg 2 IMM. No questions voiced. Provided pt a copy. Initialed, dated, & timed a copy & placed in chart.
[2022-08-29] VITALS (9 sets, daily range): BP systolic 104–116; BP diastolic 65–74; PULSE 100–107; RESP 17–24; TEMP 36.4–37.3; O2SAT 95–98
[2022-08-29 05:17] LABS: Basophils # 0.1 10^3/uL (0.0-0.1); Basophils % 0.6 %; Eosinophils # 0.2 10^3/uL (0.0-0.8); Eosinophils % 2.1 %; Hematocrit 42.3 % (37.0-47.0); Hemoglobin 12.3 g/dL (11.5-15.3); Lymphocytes # 1.3 10^3/uL (0.8-4.8); Lymphocytes % 14.2 %; Mean Corpuscular HGB Conc 29.1 g/dL (30.0-36.0); Mean Corpuscular Hemoglobin 26.2 pg (28.0-34.0); Mean Platelet Volume 9.3 fL (7.4-10.4); Monocytes # 0.9 10^3/uL (0.2-0.9); Monocytes % 9.2 %; Neutrophils # 6.78 10^3/uL (1.8-7.7); Neutrophils % 72.9 %; Nucleated Red Blood Cells % 0 %; Platelet Count 256 10^3/cmm (130-400); White Blood Count 9.3 10^3/uL (4.0-10.0)
[2022-08-29 05:32] LABS: Alanine Aminotransferase 18 U/L (0-33); Albumin Level 2.7 g/dL (3.5-5.2); Alkaline Phosphatase 66 U/L (35-105); Anion Gap 15.1 (5-19); Aspartate Amino Transferase 35 U/L (0-32); Blood Urea Nitrogen 20 mg/dL (8-23); Carbon Dioxide 16 mmol/L (22-29); Chloride 115 mmol/L (98-107); Globulin 3.5 g/dL (1.3-4.6); Glucose 144 mg/dL (65-115); Osmolality Calculated 301 mOsm/kg (285-295); Potassium 3.1 mmol/L (3.5-5.1); Sodium 143 mmol/L (136-145); Total Bilirubin 0.7 mg/dL (0.15-1.2); Total Protein 6.2 g/dL (6.6-8.7)
[2022-08-29] MEDS: sennosides-docusate Tablet 1 TAB PO (10:02)
[2022-08-29] MEDS: atorvastatin 40 mg Tablet PO (10:02)
[2022-08-29] MEDS: FUROsemide 40 mg Tablet PO ×2 (10:03→17:52)
[2022-08-29] MEDS: levothyroxine 50 mcg Tablet PO (10:03)
[2022-08-29] MEDS: docusate sodium 100 mg Capsule PO (10:03)
[2022-08-29] MEDS: multivitamin therapeutic Tablet 1 TAB PO (10:03)
[2022-08-29] MEDS: escitalopram 10 mg Tablet 20 MG PO (10:03)
[2022-08-29] MEDS: aspirin 81 mg EC Tablet PO (10:04)
[2022-08-29] MEDS: NON-FORMULARY MEDICATION (Linaclotide [Linzess] 145 mcg capsule) 145 EACH PO (10:04)
[2022-08-29] MEDS: NON-FORMULARY MEDICATION (Methenamine Hippurate 1 gram tablet) 1 EACH PO ×2 (10:04→17:52)
[2022-08-29 10:42] LABS: Vancomycin Trough 11.1 ug/mL (10-15)
[2022-08-29] MEDS: pantoprazole 40 mg SDV IVP (13:39)
--- NOTE | 2022-08-29 16:57 | P.PN_ITS ---
Subjective Subjective: Patient is stable. Vitals/I&O/Wt Last Vital Signs Temp 97.5 F L 08/29/22 16:21 Pulse 106 H 08/29/22 16:21 Resp 20 H 08/29/22 16:21 BP 114/71 08/29/22 16:21 Pulse Ox 96 08/29/22 16:21 O2 Del Method 08/29/22 16:21 O2 Flow Rate 2 08/29/22 16:21 08/29/22 08/29/22 08/29/22 06:59 14:59 22:59 Intake Total 50 / 950 Output Total 250 / 350 225 / 225 Balance -200 / 600 -225 / -225 Physical Exam Narrative: Patient is alert awake No elevated JVD Lungs mild deep inspiratory crackles most likely due to atelectasis Heart audible regular audible sound S1-S2 DAMAGE CUTTER grossly nonfocal except confusion Lower extremity trace edema Data 08/29/22 04:43 08/29/22 04:43 A&P Assessment and plan (1) Pericardial effusion: Patient is vitally stable. Continue medical therapy (2) Pleural effusion: Continue Lasix 20 mg (3) Altered mental status: As per medicine (4) Systolic congestive heart failure: Continue lasix (5) NSTEMI (non-ST elevated myocardial infarction): Medical therapy. Continue aspirin and betablocker Plan As above. Attestations Medical Necessity Statement*: Care expected to cross 2 midnights. Coding Level of Care Code Acute Code for g Fwd Diagnoses Pericardial effusion I31.39 Pleural effusion J90 Altered mental status R41.82 Systolic congestive heart failure I50.20 NSTEMI (non-ST elevated myocardial infarction) I21.4
--- NOTE | 2022-08-29 17:09 | PM.PN ---
Subjective Subjective: No new complaints today. Net -200 cc. however overall still +4.5 L since admission. Stable renal function. Alert awake and oriented, denies any complaints at this time Medications: Reviewed: Yes Vitals/I&O/Wt Last Vital Signs Temp 97.5 F L 08/29/22 16:21 Pulse 106 H 08/29/22 16:21 Resp 20 H 08/29/22 16:21 BP 114/71 08/29/22 16:21 Pulse Ox 96 08/29/22 16:21 O2 Del Method 08/29/22 16:21 O2 Flow Rate 2 08/29/22 16:21 08/29/22 08/29/22 08/29/22 06:59 14:59 22:59 Intake Total 50 / 950 Output Total 250 / 350 225 / 225 Balance -200 / 600 -225 / -225 Physical Exam Narrative: General: No acute distress, AO x3 HEENT: PERRLA, pupils bilaterally equal and reactive, pallors not present Chest: Normal vesicular breath sounds, no added sounds, equal good air entry bilaterally CVS: S1-S2 regular, no murmurs, no tachycardia, no gallops, no rubs Abdomen: Soft, nontender, no organomegaly, bowel sounds present Neuro: No focal deficits, no facial deformity, AO x3, power 5/5 in all limbs Extremities: LE edema 2+ Data 08/29/22 04:43 08/29/22 04:43 A&P Assessment and plan (1) Pericardial effusion: appreciate cardiology recommendations Pericardial effusion. not tamponade restarted home lasix 40mg PO at this time--> increase to 40 mg BID given LE edema and effusions no surgical intervention indicated (2) Pleural effusion: Secondary to congestive heart failure presumptive PNA at time of admission; however WBC and Cx have been negative. no infectous process. Abx stopped 08/28/22 (3) Altered mental status: baseline confusion likely 2/2 dementia, AAO x 3 at time of assessment today (4) Systolic congestive heart failure: diuresis responsive restarted home lasix, increase to BID today, monitor I/O continue ASA, lipitor, eliquis (5) Pneumonia: Now excluded (6) Sepsis: sepsis resolved on 08/28 d/c Abx as Cx negative and no signs of infectous process (7) Constipation: Continue linzess, senna/docusate (8) Protein-calorie malnutrition, moderate: puree diet Plan cardiac diet 1.5L fluid restriction, encourage PO intake PT/OT CM/SS for placement Goals of care discussed with . DNR/DNI Attestations Medical Necessity Statement*: ongoing diuresis, increase today , replete K Coding Level of Care Code Acute Code for Chg Fwd Diagnoses Pericardial effusion I31.39 Pleural effusion J90 Altered mental status R41.82 Systolic congestive heart failure I50.20 Pneumonia J18.9 Sepsis A41.9 Constipation K59.00 Protein-calorie malnutrition, moderate E44.0
[2022-08-29] MEDS: potassium chloride ER 20 mEq Tablet 40 MEQ PO (17:52)
[2022-08-29] MEDS: CLONazepam 1 mg Tablet PO (20:47)
[2022-08-30 03:39] VITALS: BP 107/68; PULSE 96; RESP 16; TEMP 36.6; O2SAT 96
[2022-08-30 05:13] VITALS: PULSE 100
[2022-08-30 05:44] LABS: Basophils # 0.1 10^3/uL (0.0-0.1); Eosinophils # 0.3 10^3/uL (0.0-0.8); Eosinophils % 2.9 %; Hematocrit 40.8 % (37.0-47.0); Hemoglobin 12.3 g/dL (11.5-15.3); Lymphocytes # 1.4 10^3/uL (0.8-4.8); Lymphocytes % 13.7 %; Mean Corpuscular HGB Conc 30.1 g/dL (30.0-36.0); Mean Corpuscular Hemoglobin 25.4 pg (28.0-34.0); Mean Corpuscular Volume 84.1 fl (81-99); Mean Platelet Volume 9.6 fL (7.4-10.4); Neutrophils # 7.07 10^3/uL (1.8-7.7); Neutrophils % 71.9 %; Nucleated Red Blood Cells % 0 %; Platelet Count 244 10^3/cmm (130-400); Red Blood Count 4.85 10^6/uL (4.1-5.3); Red Cell Distribution Width 15.1 % (12.1-15.1); White Blood Count 9.8 10^3/uL (4.0-10.0)
[2022-08-30 06:07] LABS: Alanine Aminotransferase 21 U/L (0-33); Alkaline Phosphatase 67 U/L (35-105); Aspartate Amino Transferase 38 U/L (0-32); Blood Urea Nitrogen 17 mg/dL (8-23); Calcium 9.1 mg/dL (8.5-10.5); Carbon Dioxide 21 mmol/L (22-29); Chloride 114 mmol/L (98-107); Globulin 3.2 g/dL (1.3-4.6); Glucose 124 mg/dL (65-115); Osmolality Calculated 305 mOsm/kg (285-295); Sodium 146 mmol/L (136-145); Total Bilirubin 0.8 mg/dL (0.15-1.2); Total Protein 6.2 g/dL (6.6-8.7)
[2022-08-30 08:00] VITALS: BP 108/68; PULSE 97; RESP 16; TEMP 36.4; O2SAT 96
[2022-08-30] MEDS: escitalopram 10 mg Tablet 20 MG PO (08:59)
[2022-08-30] MEDS: multivitamin therapeutic Tablet 1 TAB PO (08:59)
[2022-08-30] MEDS: aspirin 81 mg EC Tablet PO (08:59)
[2022-08-30] MEDS: atorvastatin 40 mg Tablet PO (08:59)
[2022-08-30] MEDS: levothyroxine 50 mcg Tablet PO (08:59)
[2022-08-30] MEDS: sennosides-docusate Tablet 1 TAB PO (08:59)
[2022-08-30] MEDS: FUROsemide 40 mg Tablet PO (08:59)
[2022-08-30] MEDS: NON-FORMULARY MEDICATION (Methenamine Hippurate 1 gram tablet) 1 EACH PO (10:33)
[2022-08-30] MEDS: NON-FORMULARY MEDICATION (Linaclotide [Linzess] 145 mcg capsule) 145 EACH PO (10:33)
[2022-08-30 11:05] LABS: SARS Covid-2 Antigen Negative (Negative)
[2022-08-30 12:00] VITALS: RESP 17; TEMP 36.6; O2SAT 95
--- NOTE | 2022-08-30 12:05 | P.DS_ITS ---
Discharge Providers Date of Admission: 08/25/22 14:23 Date of Discharge: August 30, 2022 Attending Provider at Admission: Karyn Wilkerson MD Attending Provider at Discharge: Carla García MD Primary Care Provider: Rebekah Nix DO Diagnoses at Discharge Discharge Diagnosis (1) Pericardial effusion: Status: Acute (2) Pleural effusion: Status: Acute (3) Altered mental status: Status: Resolved (4) Systolic congestive heart failure: Status: Acute (5) Pneumonia: Status: Acute (6) Sepsis: Status: Acute (7) Constipation: Status: Acute (8) Protein-calorie malnutrition, moderate: Status: Acute Reason for Visit Reason for Visit: AMS Hospital Course Hospital Course Mel Ferrara is a 87 year old female past medical history significant for moderately depressed LV dysfunction, congestive heart failure systolic type, history of recent pulmonary embolism, history of left ventricular thrombus was recently discharged on palliative treatment readmitted the next day with altered mental status, possible worsening of congestive heart failure pneumonia. Echocardiogram was performed which was limited and suggestive of moderate pericardial effusion with suspicion of pretamponade.?She was evaluated by cardiology , there was no evidence of pulses paradoxus, no electrical alternans on the EKG, heart sounds are clear not muffled, echocardiogram she has moderate effusion no significant diastolic collapse. She did not have signs of tamponade. She was gently diuresed with ivlasix during course of admission and treated with iv antibiotics. Her mentation was improved. By the day of discharge she as able to clearly state her name, age, location in a hospital. She is at baseline mentation now. She is being discharged to SNF in a stable but chronically ill condition ? Physical Exam Narrative: General: No acute distress, AO x3 HEENT: PERRLA, pupils bilaterally equal and reactive, pallors not present Chest: Normal vesicular breath sounds, no added sounds, equal good air entry bilaterally CVS: S1-S2 regular, no murmurs, no tachycardia, no gallops, no rubs Abdomen: Soft, nontender, no organomegaly, bowel sounds present Neuro: No focal deficits, no facial deformity, AO x3, power 5/5 in all limbs Discharge Data Studies Completed and Pending Completed Studies During Hospitalization Category Date Time Status CT head wo con* [id number] Stat Cat Scan 08/25/22 10:01 Completed XR chest 1V portable [id number] Urgent Exams 08/25/22 09:50 Completed CV. echo limited [id number] Stat Ultrasound 08/25/22 11:36 Completed Pending at discharge Category Date Time Status Sputum Culture and Gram Stain Stat Lab 08/25/22 10:35 Uncollected Radiology Impressions Chest X-Ray 08/25/22 09:50 IMPRESSION: Progression of lung abnormality presumably secondary to congestive heart failure. Head CT 08/25/22 10:01 IMPRESSION: 1. Stable noncontrast head CT since 08/19/2022. 2. Mild atrophy and small vessel ischemic disease. No acute intracranial hemorrhage. Laboratory Results WBC 9.8 10^3/uL (4.0-10.0) 08/30/22 05: RBC 4.85 10^6/uL (4.1-5.3) 08/30/22 05: Hgb 12.3 g/dL (11.5-15.3) 08/30/22 05: Hct 40.8 % (37.0-47.0) 08/30/22 05: MCV 84.1 fl (81-99) D 08/30/22 05:23 MCH 25.4 pg (28.0-34.0) L 08/30/22 05: MCHC 30.1 g/dL (30.0-36.0) 08/30/22 05: RDW 15.1 % (12.1-15.1) 08/30/22 05:23 Plt Count 244 10^3/cmm (130-400) 08/30/22 05: MPV 9.6 fL (7.4-10.4) 08/30/22 05:23 Neut % (Auto) 71.9 % 08/30/22 05:23 Lymph % (Auto) 13.7 % 08/30/22 05:23 [place] % (Auto) 10.0 % 08/30/22 05: Eos % (Auto) 2.9 % 08/30/22 05: Baso % (Auto) 1.0 % 08/30/22 05:23 Neut # (Auto) 7.07 10^3/uL (1.8-7.7) 08/30/22 05:23 Lymph # (Auto) 1.4 10^3/uL (0.8-4.8) 08/30/22 05:23 [place] # (Auto) 1.0 10^3/uL (0.2-0.9) H 08/30/22 05:23 Eos # (Auto) 0.3 10^3/uL (0.0-0.8) 08/30/22 05:23 Baso # (Auto) 0.1 10^3/uL (0.0-0.1) 08/30/22 05:23 Nucleated RBC % (auto) 0 % 08/30/22 05:23 Nucleated RBCs # 0.0 /100WBC 08/30/22 05:23 Sodium 146 mmol/L (136-145) H 08/30/22 05:23 Potassium 3.0 mmol/L (3.5-5.1) L 08/30/22 05:23 Chloride 114 mmol/L (98-107) H 08/30/22 05:23 Carbon Dioxide 21 mmol/L (22-29) L 08/30/22 05:23 Anion Gap 14.0 (5-19) 08/30/22 05:23 BUN 17 mg/dL (8-23) 08/30/22 05:23 Creatinine 1.1 mg/dL (0.5-0.9) H 08/30/22 05:23 GFR Calculation Not Reportable 08/30/22 05:23 Glucose 124 mg/dL (65-115) H 08/30/22 05:23 Calculated Osmolality 305 mOsm/kg (285-295) H 08/30/22 05:23 Lactic Acid 2.4 mmol/L (0.5-2.2) H 08/25/22 10:12 Lactic Acid (Sepsis) 2.1 mmol/L (0.5-2.2) 08/25/22 12:20 Calcium 9.1 mg/dL (8.5-10.5) 08/30/22 05:23 Magnesium 2.3 mg/dL (1.7-2.3) 08/26/22 04:44 Total Bilirubin 0.8 mg/dL (0.15-1.2) 08/30/22 05:23 AST 38 U/L (0-32) H 08/30/22 05:23 ALT 21 U/L (0-33) 08/30/22 05:23 Alkaline Phosphatase 67 U/L (35-105) 08/30/22 05:23 Troponin T Baseline 568 ng/L (0-10) H* 08/25/22 10:12 Troponin T 120 Minute 486.6 ng/L (0-10) H 08/25/22 12:20 Delta Troponin T -81.4 ABS# (0-10) L 08/25/22 12:20 Troponin T Hi Sens 6Hr 442.2 ng/L (0-10) H 08/25/22 16:59 Troponin T Hi Sens 6Hr Delta -125.8 ng/L (0-12) L 08/25/22 16:59 C-Reactive Protein 181.2 mg/L (0.0-4.9) H 08/25/22 10:12 NT-Pro-B Natriuret Pep 6956 pg/mL (0-450) H 08/25/22 10:12 Total Protein 6.2 g/dL (6.6-8.7) L 08/30/22 05:23 Albumin 3.0 g/dL (3.5-5.2) L 08/30/22 05:23 Globulin 3.2 g/dL (1.3-4.6) 08/30/22 05:23 Procalcitonin 0.36 ng/mL (0-0.5) 08/25/22 10:12 Procalcitonin 0.37 ng/mL (0-0.5) 08/25/22 10:12 Urine Color Yellow (Yellow) 08/25/22 11:21 Urine Appearance Hazy (CLEAR) A 08/25/22 11:21 Urine pH 5 (5-7) 08/25/22 11:21 Ur Specific [place] 1.025 (1.005-1.030) 08/25/22 11:21 Urine Protein 1+ (Negative) H 08/25/22 11:21 Urine Glucose (UA) Norm (Normal) 08/25/22 11:21 Urine Ketones 1+ (Negative) H 08/25/22 11:21 Urine Blood 3+ (Negative) H 08/25/22 11:21 Urine Nitrate Negative (Negative) 08/25/22 11:21 Urine Bilirubin 1+ (Negative) H 08/25/22 11:21 Urine Urobilinogen Neg mg/dL (Negative) 08/25/22 11:21 Ur Leukocyte Esterase 2+ (Negative) H 08/25/22 11:21 Urine RBC 5-10 /hpf (0-2) H 08/25/22 11:21 Urine WBC 15-25 /hpf (0-5) H 08/25/22 11:21 Ur Squamous Epith Cells 0-4 /hpf (0-5) H 08/25/22 11:21 Amorphous Sediment Not Reportable 08/25/22 11:21 Urine Bacteria 1+ /hpf (NONE) H 08/25/22 11:21 Hyaline Casts 0-4 /lpf H 08/25/22 11:21 Urine Mucus 1+ /hpf 08/25/22 11:21 Urine Yeast 1+ /hpf H 08/25/22 11:21 Vancomycin Trough 11.1 ug/mL (10-15) 08/29/22 10:02 Coronavirus 229E (PCR) Not detected (NOT DETECT) 08/25/22 15:26 SARS-CoV-2 (PCR) Not detected (NOT DETECT) 08/25/22 15:26 SARS-CoV-2 Ag (Rapid) Negative (Negative) 08/30/22 09:00 Vitals Last Vital Signs Temp 97.6 F 08/30/22 08:00 Pulse 97 08/30/22 08:00 Resp 16 08/30/22 08:00 BP 108/68 08/30/22 08:00 Pulse Ox 96 08/30/22 08:00 O2 Del Method 08/30/22 03:39 O2 Flow Rate 2 08/30/22 03:39 Discharge Plan Discharge Patient Disposition: Xfer SNF Condition: Stable Prescriptions: New furosemide 40 mg Tablet 40 mg PO DAILY 30 Days Qty: 30 0RF Continued omeprazole 20 mg capsule,delayed release(DR/EC) 20 mg PO DAILY fluticasone propionate [Flonase Allergy Relief] 50 mcg/actuation s pray,suspension 2 spray INTRANASAL DAILY PRN (Reason: Allergy Symptoms) Rx Instructions: administer into each nostril melatonin 10 mg capsule 10 mg PO DAILY atorvastatin [Lipitor] 40 mg tablet 40 mg PO DAILY Qty: 30 0RF aspirin [Adult Low Dose Aspirin] 81 mg tablet,delayed release (DR/EC) 81 mg PO DAILY Qty: 30 0RF ascorbic acid (vitamin C) 1,000 mg tablet 1 g PO DAILY docusate sodium [Colace] 100 mg capsule 100 mg PO DAILY methenamine hippurate 1 gram tablet See Rx Instructions .ROUTE .COMPLEX Qty: 60 12RF Dose Instruction: TAKE 1 TABLET BY MOUTH TWICE DAILY. TAKE WITH 1000 MG OF VITAMINC. Rx Instructions: TAKE 1 TABLET BY MOUTH TWICE DAILY. TAKE WITH 1000 MG OF VITAMINC. Linzess 145 mcg capsule 145 mcg PO DAILY Qty: 30 0RF levothyroxine 50 mcg tablet 50 mcg PO DAILY escitalopram oxalate 20 mg tablet 20 mg PO DAILY sennosides-docusate sodium [Stool Softener-Laxative] 8.6-50 mg Tablet 1 tab PO DAILY Qty: 30 0RF Eliquis DVT-PE Treat 30D Start 5 mg (74 tabs) tablets,dose pack See Rx Instructions .ROUTE .COMPLEX Qty: 74 3RF Rx Instructions: orally per package directions 10 mg twice daily for 7 days and then 5 mg twice daily clonazepam 1 mg tablet 1 mg PO DAILY Qty: 30 0RF quetiapine 50 mg tablet 50 mg PO BID Qty: 30 0RF metoprolol tartrate 25 mg tablet 25 mg PO BID Qty: 60 0RF oxycodone-acetaminophen 5-325 mg tablet 1 tab PO Q8H PRN (Reason: pain) Qty: 20 0RF alfuzosin 10 mg tablet extended release 24 hr 10 mg PO DAILY Centrum Silver Women 8 mg iron-400 mcg-300 mcg Tablet 1 tab PO DAILY vitamin [id number] acid 2,500-400 mcg Tablet,Disintegrating 1 tab PO DAILY Discontinued levofloxacin 750 mg Tablet 750 mg PO DAILY@0600 Qty: 5 0RF Discharge Orders: Discharge Order (Routine); Ordered 08/30/22 Ordered By: Carla García Referrals: Rebekah Nix DO [Primary Care Provider] - 7-10 days Discharge Diet: Usual diet Discharge Activity: Resume usual activity Patient Instructions: Opioid Safety Discharge Attestations Time Spent in Discharge Care*: greater than 30 min Status at Discharge: Cognitive status at discharge: cognitively intact , Behavioral status at discharge: cooperative , Quality Metrics Clinical Quality Measures [ No reported AMI, CVA or VTE this stay] Coding Level of Care Code Acute Code for [facility] Fwd Diagnoses Pericardial effusion I31.39 Pleural effusion J90 Altered mental status R41.82 Systolic congestive heart failure I50.20 Pneumonia J18.9 Sepsis A41.9 Constipation K59.00 Protein-calorie malnutrition, moderate E44.0
--- NOTE | 2022-08-30 12:36 | PC.SOCIAL ---
IMM Update pg 2 of IMM updated and reviewed w/ patients via phone. Copy left @ bedside and copy in chart dated, and initialed.
[2022-08-30] MEDS: potassium chloride ER 20 mEq Tablet 60 MEQ PO (13:20)
[2022-08-30] MEDS: pantoprazole 40 mg SDV IVP (13:20)
--- NOTE | 2022-08-30 13:59 | PC.OT ---
OT TREATMENT HELD TODAY DUE TO SCHEDULED OT DISCHARGE
[2022-08-30 15:05] VITALS: RESP 17; TEMP 36.6; O2SAT 95
== END 2022-08-30 15:09 | disposition skilled nursing facility (03) | DRG 871 ==
LOC: ER 10:42 → MEDSURG 12:44
PROVIDERS: Family Medicine; Physician Assistant; Admitting Provider Internal Medicine; Emergency Provider Family Medicine; PCP Family Medicine; Visit Provider Student in an Organized Health Care Education/Training Program
DX: A41.9 Sepsis, unspecified organism (principal); I21.4 Non-ST elevation (NSTEMI) myocardial infarction; I26.99 Other pulmonary embolism without acute cor pulmonale; I50.23 Acute on chronic systolic (congestive) heart failure; J18.9 Pneumonia, unspecified organism; E44.0 Moderate protein-calorie malnutrition; G93.40 Encephalopathy, unspecified; I31.39 Other pericardial effusion (noninflammatory); I11.0 Hypertensive heart disease with heart failure; Z79.82 Long term (current) use of aspirin; Z79.01 Long term (current) use of anticoagulants; Z79.891 Long term (current) use of opiate analgesic; Z68.25 Body mass index [BMI] 25.0-25.9, adult; F41.8 Other specified anxiety disorders; R33.9 Retention of urine, unspecified; Z86.73 Personal history of transient ischemic attack (TIA), and cerebral infarction without residual deficits; K21.9 Gastro-esophageal reflux disease without esophagitis; E03.9 Hypothyroidism, unspecified; Z87.891 Personal history of nicotine dependence; Z66 Do not resuscitate; Z96.0 Presence of urogenital implants; K59.00 Constipation, unspecified
CPT/HCPCS: 36415; 70450; 71045; 80053; 80202; 81001; 83605; 83735; 83880; 84145; 84484; 85025; 86140; 87040; 87086; 87426; 87635; 92523; 92526; 92610; 93005; 93308; 96365; 96366; 96367; 96375; 97110; 97116; 97161; 97166; 97530; 97535; 99285; C9113; J1956; J3370; J3490; J7030; J7050

== ENCOUNTER 2022-09-15 10:03 | Outpatient (CLI) | payer MEDICARE, SELFPAY ==
[2022-09-15 10:18] LABS: Basophils % 0.4 %; Eosinophils # 0.1 10^3/uL (0.0-0.8); Eosinophils % 0.8 %; Hematocrit 37.1 % (37.0-47.0); Hemoglobin 11.1 g/dL (11.5-15.3); Lymphocytes # 1.3 10^3/uL (0.8-4.8); Lymphocytes % 13.5 %; Mean Corpuscular HGB Conc 29.9 g/dL (30.0-36.0); Mean Corpuscular Hemoglobin 24.9 pg (28.0-34.0); Mean Corpuscular Volume 83.2 fl (81-99); Mean Platelet Volume 10.7 fL (7.4-10.4); Monocytes # 0.8 10^3/uL (0.2-0.9); Monocytes % 7.6 %; Neutrophils # 7.65 10^3/uL (1.8-7.7); Nucleated Red Blood Cells % 0.2 %; Platelet Count 306 10^3/cmm (130-400); Red Blood Count 4.46 10^6/uL (4.1-5.3); Red Cell Distribution Width 16.6 % (12.1-15.1); White Blood Count 9.9 10^3/uL (4.0-10.0)
== END 2022-09-15 10:04 | disposition home or self-care (01) ==
PROVIDERS: PCP Family Medicine; Visit Provider Nurse Practitioner Family
DX: D64.9 Anemia, unspecified (principal)
CPT/HCPCS: 85025

== ENCOUNTER 2022-09-16 06:38 | Emergency (ER) | payer MEDICARE, SELFPAY ==
[2022-09-16 06:40] VITALS: BP 95/63; PULSE 99; RESP 15; TEMP 36.4; O2SAT 98
[2022-09-16 07:09] LABS: Basophils # 0.1 10^3/uL (0.0-0.1); Basophils % 0.5 %; Eosinophils % 0.2 %; Hemoglobin 10.1 g/dL (11.5-15.3); Lymphocytes # 1.5 10^3/uL (0.8-4.8); Lymphocytes % 12.4 %; Mean Corpuscular HGB Conc 28.9 g/dL (30.0-36.0); Mean Corpuscular Hemoglobin 25.6 pg (28.0-34.0); Mean Corpuscular Volume 88.6 fl (81-99); Mean Platelet Volume 10.6 fL (7.4-10.4); Monocytes # 0.8 10^3/uL (0.2-0.9); Monocytes % 6.1 %; Neutrophils # 9.89 10^3/uL (1.8-7.7); Neutrophils % 80.2 %; Nucleated Red Blood Cells % 0 %; Platelet Count 291 10^3/cmm (130-400); Red Blood Count 3.95 10^6/uL (4.1-5.3); White Blood Count 12.3 10^3/uL (4.0-10.0)
[2022-09-16 07:23] LABS: Add Urine Microscopic? YES; Bilirubin Urine Neg (Negative); Blood Urine 3+ (Negative); Glucose Urine UA Norm (Normal); Ketones Urine 1+ (Negative); Leukocyte Esterase Urine 2+ (Negative); Nitrate Urine Positive (Negative); Protein Urine 3+ (Negative); Urine Appearance Cloudy (CLEAR); Urine Color Brown (Yellow); Urobilinogen Urine Neg (Negative); pH Urine 5 (5-7)
--- NOTE | 2022-09-16 07:24 | ED_ITS ---
HPI - Female Genitourinary General: Chief complaint: Urogenital-Female Stated complaint: BLOOD IN URINE Time Seen by Provider: 09/16/22 06:40 Source: patient Mode of arrival: EMS History of Present Illness: 87-year-old female who presents to the emergency room with complaints of hematuria. Patient is at a retirement reporting hematuria in her indwelling K[place] for the last week. She also reported to be slightly hypotensive she is on arrival here as well. She has a history of chronic interstitial cystitis and is on methenamine. She is normally on 3 L by nasal cannula and is oxygenating well on her 3 L she is somewhat drowsy but alert answers questions appropriately did states she has some mild abdominal discomfort no chest pain no shortness of breath. MD elicited complaint: pelvic pain Onset (ago): day(s) Severity: mild Quality of pain: cramping Consistency: constant Vaginal bleeding: none Urinary symptoms: Hematuria Exacerbating factors: none Relieving factors: none Associated symptoms: Deny abdominal pain, short of breath, fevers/chills, headache(s), nausea, rash, seizures, syncope, vaginal bleeding, vaginal discharge or weakness Treatment prior to arrival: none Review of Systems Const: Denies: fever(s), chills, body aches, change in appetite, fatigue or malaise ENMT: Denies: throat pain, ear or mastoid pain, nasal discharge or nasal congestion Card: Denies: chest pain, palpitations, irregular heart rhythm, edema, swelling of feet/ankles or syncope Resp: Denies: dyspnea, productive cough or non-productive cough GI: Denies: abdominal pain, nausea or vomiting : Reports: hematuria; Denies: flank pain, dysuria, urinary frequency, urinary urgency or vaginal discharge Skin/Breast: Denies: rash or pruritus Neuro: Denies: headache(s) PFSH ED PFSH: Medical History Acute kidney injury Acute urinary retention Anxiety disorder -anxiolytics PRN, resume clonazepam on d/c CVA (cerebral vascular accident) Difficult Kaba catheter placement Encounter for long-term (current) use of NSAIDs Encounter for narcotic contract discussion Episode of transient neurologic symptoms Genital atrophy of female GERD (gastroesophageal reflux disease) -on PPI HTN (hypertension) -hypertensive today; continue to monitor vital signs -on HCTZ 25 mg daily, may need this titrated if continued hypertension Hypothyroidism -TSH-low (0.11) -on levothyroxine, recently adjusted by PCP Left ventricular thrombus Lower extremity weakness -Reports bilateral lower extremity weakness, significantly worse on the left with associated progressive difficulty with ambulation Memory loss Osteoarthritis Palliative care status Pericardial effusion Pneumonia Pulmonary embolism Rectocele Recurrent UTI Tachycardia UTI (urinary tract infection) -has been on antibiotic treatment with macrobid for UTI (day 03/21) -UA here not indicative of infection Surgical History H/O laminectomy H/O: hysterectomy History of appendectomy History of back surgery History of hip replacement S/P left knee arthroscopy Family History Son Alcohol abuse Psychiatric illness Bipolar disorder Mother , at age 91 Cancer Father , at age 42 MVA (motor vehicle accident) Social History Smoking and tobacco status: former smoker Quit status (tobacco): has quit using tobacco Former quit date comment: Remote history Second hand smoke exposure: No Alcohol intake: never Household members: spouse Marital status: Current occupational status: retired Physical Exam Const: GENERAL APPEARANCE: cooperative and comfortable ORIENTATION/CONS CIOUSNESS: Yes awake, Yes oriented to person, Yes oriented to place and Yes oriented to time HENMT: COMMON NORMALS: normocephalic, atraumatic and hearing grossly normal bilaterally HEAD & SCALP: normocephalic and atraumatic Resp: COMMON NORMALS: normal respiratory effort, No retractions, No use of accessory muscles and clear to auscultation bilaterally AUSCULTATION: clear to auscultation bilaterally Cardio: COMMON NORMALS: regular rate, regular rhythm and No murmurs present (Cardio) RATE: regular rate RHYTHM: regular rhythm GI: COMMON NORMALS: No hepatosplenomegaly present AUSCULTATION: Yes normoactive bowel sounds PALPATION: Yes Tenderness to palpation present (GI) (Suprapubic), No Guarding due to palpation present (GI) and Yes No hepatosplenomegaly present : SPECULUM EXAM - VAGINA: No vaginal bleeding OB/EXTERNAL & SPECULUM: No vaginal bleeding Extremity: COMMON NORMALS: normal to inspection, capillary refill normal, no clubbing, cyanosis or edema, no calf tenderness and no pedal edema Neuro: SENSORIUM/ORIENTATION: Yes oriented to person, Yes oriented to place and Yes oriented to time Skin: COMMON NORMALS: no rashes or lesions noted GENERAL SKIN EXAM: no rashes or lesions noted Course Vital Signs: Vital signs: Vital Signs Temperature 97.5 F L 09/16/22 06:40 Pulse Rate 81 09/16/22 10:36 Respiratory Rate 22 H 09/16/22 10:36 Blood Pressure 106/51 09/16/22 10:36 Pulse Oximetry 90 09/16/22 10:36 Oxygen Delivery Me thod 09/16/22 09:29 Oxygen Flow Rate 2 09/16/22 09:29 MDM - Female Medical Decision Making Discussed this patient with Dr. Linder who is her primary at the retirement multiple discussions with the family was at the bedside and with full patient herself ultimately they decided they prefer to go on hospice for comfort care. She has several different findings including retroperitoneal hematoma potential abdominal aortic hematoma lymphadenopathy and a pancreatic mass as wel l as sepsis and UTI. We did give her the option of being admitted for IV treatment of the infection but we would have to hold her anticoagulation there be significant risk with that ultimately she decided just to go back to the retirement on hospice care. Patient and her understand the gravity of the decision given the diagnosis made today and still wished to proceed with comfort cares. Medical Records I reviewed the patient's medical records. Lab Data I reviewed the patient's lab results. 09/16/22 06:50 09/16/22 06:50 Radiology Impressions Abdomen/Pelvis CT 09/16/22 07:28 IMPRESSION: 1. Acute LEFT retroperitoneal hemorrhage involving the iliacus muscle. Bleed extends to the LEFT groin. 2. Additional soft tissue masses at the mesenteric root and in the region of the pancreatic head are probably lymph node groups. These were not present on the prior examinations. Suspect mesenteric adenopathy. Etiology is not certain. Possible pancreatic head mass and lymphoma within the differential. 3. Soft tissue mass inseparable from the abdominal aorta measures 3.6 x 2.8 cm. Lymph node likely. Aortic injury with hematoma may also be within the differential as this is inseparable from a portion of the aorta. 4. Moderate-sized bilateral pleural effusions with bibasilar atelectasis. 5. Small pericardial effusion versus pericardial thickening. Laboratory Results WBC 12.3 10^3/uL (4.0-10.0) H 09/16/22 06:50 RBC 3.95 10^6/uL (4.1-5.3) L 09/16/22 06:50 Hgb 10.1 g/dL (11.5-15.3) L 09/16/22 06:50 Hct 35.0 % (37.0-47.0) L 09/16/22 06:50 MCV 88.6 fl (81-99) D 09/16/22 06:50 MCH 25.6 pg (28.0-34.0) L 09/16/22 06:50 MCHC 28.9 g/dL (30.0-36.0) L 09/16/22 06:50 RDW 17.0 % (12.1-15.1) H 09/16/22 06:50 Plt Count 291 10^3/cmm (130-400) 09/16/22 06:50 MPV 10.6 fL (7.4-10.4) H 09/16/22 06:50 Neut % (Auto) 80.2 % 09/16/22 06:50 Lymph % (Auto) 12.4 % 09/16/22 06:50 [place] % (Auto) 6.1 % 09/16/22 06:50 Eos % (Auto) 0.2 % 09/16/22 06:50 Baso % (Auto) 0.5 % 09/16/22 06:50 Neut # (Auto) 9.89 10^3/uL (1.8-7.7) H 09/16/22 06:50 Lymph # (Auto) 1.5 10^3/uL (0.8-4.8) 09/16/22 06:50 [place] # (Auto) 0.8 10^3/uL (0.2-0.9) 09/16/22 06:50 Eos # (Auto) 0.0 10^3/uL (0.0-0.8) 09/16/22 06:50 Baso # (Auto) 0.1 10^3/uL (0.0-0.1) 09/16/22 06:50 Nucleated RBC % (auto) 0 % 09/16/22 06:50 Nucleated RBCs # 0.0 /100WBC 09/16/22 06:50 Sodium 141 mmol/L (136-145) 09/16/22 06:50 Potassium 5.0 mmol/L (3.5-5.1) 09/16/22 06:50 Chloride 104 mmol/L (98-107) 09/16/22 06:50 Carbon Dioxide 18 mmol/L (22-29) L 09/16/22 06:50 Anion Gap 24.0 (5-19) H 09/16/22 06:50 BUN 31 mg/dL (8-23) H 09/16/22 06:50 Creatinine 1.5 mg/dL (0.5-0.9) H 09/16/22 06:50 GFR Calculation Not Reportable 09/16/22 06:50 Glucose 141 mg/dL (65-115) H 09/16/22 06:50 Calculated Osmolality 301 mOsm/kg (285-295) H 09/16/22 06:50 Calcium 9.4 mg/dL (8.5-10.5) 09/16/22 06:50 Urine Color Brown (Yellow) 09/16/22 07:14 Urine Appearance Cloudy (CLEAR) A 09/16/22 07:14 Urine pH 5 (5-7) 09/16/22 07:14 Ur Specific [place] 1.020 (1.005-1.030) 09/16/22 07:14 Urine Protein 3+ (Negative) H 09/16/22 07:14 Urine Glucose (UA) Norm (Normal) 09/16/22 07:14 Urine Ketones 1+ (Negative) H 09/16/22 07:14 Urine Blood 3+ (Negative) H 09/16/22 07:14 Urine Nitrate Positive (Negative) H 09/16/22 07:14 Urine Bilirubin Neg (Negative) 09/16/22 07:14 Urine Urobilinogen Neg mg/dL (Negative) 09/16/22 07:14 Ur Leukocyte Esterase 2+ (Negative) H 09/16/22 07:14 Urine RBC Too numerous to cnt /hpf (0-2) H 09/16/22 07:14 Urine WBC 80-100 /hpf (0-5) H 09/16/22 07:14 Ur Squamous Epith Cells 0-4 /hpf (0-5) H 09/16/22 07:14 Calcium Oxalate Crystal 5-10 /hpf H 09/16/22 07:14 Amorphous Sediment 2+ /hpf 09/16/22 07:14 Urine Bacteria 2+ /hpf (NONE) H 09/16/22 07:14 Hyaline Casts 0-4 /lpf H 09/16/22 07:14 Urine Mucus 1+ /hpf 09/16/22 07:14 Discharge Plan Discharge Patient Disposition: Home Clinical Impression: Sepsis, Pulmonary emboli, Pericardial effusion, Cystitis, Retroperitoneal hemorrhage, Abdominal aorta injury, Left ventricular mural thrombus, Pancreatic mass, Abdominal lymphadenopathy Condition: Stable Prescriptions: Discontinued Eliquis DVT-PE Treat 30D Start 5 mg (74 tabs) tablets,dose pack See Rx Instructions .ROUTE .COMPLEX Qty: 74 3RF Rx Instructions: orally per package directions 10 mg twice daily for 7 days and then 5 mg twice daily No Action omeprazole 20 mg capsule,delayed release(DR/EC) 20 mg PO DAILY fluticasone propionate [Flonase Allergy Relief] 50 mcg/actuation spray,suspension 2 spray INTRANASAL DAILY PRN (Reason: Allergy Symptoms) Rx Instructions: administer into each nostril melatonin 10 mg capsule 10 mg PO DAILY atorvastatin [Lipitor] 40 mg tablet 40 mg PO DAILY Qty: 30 0RF aspirin [Adult Low Dose Aspirin] 81 mg tablet,delayed release (DR/EC) 81 mg PO DAILY Qty: 30 0RF ascorbic acid (vitamin C) 1,000 mg tablet 1 g PO DAILY docusate sodium [Colace] 100 mg capsule 100 mg PO DAILY methenamine hippurate 1 gram tablet See Rx Instructions .ROUTE .COMPLEX Qty: 60 12RF Dose Instruction: TAKE 1 TABLET BY MOUTH TWICE DAILY. TAKE WITH 1000 MG OF VITAMINC. Rx Instructions: TAKE 1 TABLET BY MOUTH TWICE DAILY. TAKE WITH 1000 MG OF VITAMINC. clonazepam 1 mg tablet 1 mg PO TID Qty: 90 0RF ondansetron 4 mg tablet,disintegrating 4 mg translingual Q4H PRN (Reason: nausea) Qty: 5 0RF Rx Instructions: Dissolve 1 tablet under tongue every 4 hours PRN for nausea lorazepam 2 mg/mL concentrate 2 mg sublingual Q4H PRN (Reason: Anxiety/Seizure) Qty: 30 0RF Rx Instructions: 0.25ml-1ml q4H PRN Anxiety/Seizure Start 0.25ml may increase to 0.5ml-1ml q4H morphine concentrate 100 mg/5 mL (20 mg/mL) solution 20 mg sublingual DIRECTED PRN (Reason: Pain/SOB) 14 Days Qty: 30 0RF Rx Instructions: 0.25ml-1ml q1H PRN may increase to 0.5ml-1ml Q1H PRN bisacodyl 10 mg suppository 10 mg [place] DAILY PRN (Reason: constipation) Qty: 5 0RF Rx Instructions: 1 suppository per rectum every day PRN for constipation. atropine 1 % drops 4 drp sublingual Q4H PRN (Reason: secretions) Qty: 5 0RF Rx Instructions: 4 drops SL q 4 hours PRN for terminal congestion/excessive secretions. Linzess 145 mcg capsule 145 mcg PO DAILY Qty: 30 0RF levothyroxine 50 mcg tablet 50 mcg PO DAILY escitalopram oxalate 20 mg tablet 20 mg PO DAILY sennosides-docusate sodium [Stool Softener-Laxative] 8.6-50 mg Tablet 1 tab PO DAILY Qty: 30 0RF quetiapine 50 mg tablet 50 mg PO BID Qty: 30 0RF metoprolol tartrate 25 mg tablet 25 mg PO BID Qty: 60 0RF oxycodone-acetaminophen 5-325 mg tablet 1 tab PO Q8H PRN (Reason: pain) Qty: 20 0RF alfuzosin 10 mg tablet extended release 24 hr 10 mg PO DAILY Centrum Silver Women 8 mg iron-400 mcg-300 mcg Tablet 1 tab PO DAILY vitamin I67-[id number] acid 2,500-400 mcg Tablet,Disintegrating 1 tab PO DAILY furosemide 40 mg Tablet 40 mg PO DAILY 30 Days Qty: 30 0RF Discharge Orders: Discharge ED (Routine); Ordered 09/16/22 Ordered By: Rosalio Obrien Referrals: Rebekah Nix DO [Primary Care Provider] - Patient Instructions: Opioid Safety, Pain Management Activity Restrictions/Additional Instructions: You were seen today for blood in the urine. Testing in the emergency room found that you had a bladder infection sepsis a pancreatic mass and retroperitoneal hematoma and an aortic hematoma as well as significant amount of abdominal lymphadenopathy of uncertain cause. After discussion with you and your you opted to return to the retirement for hospice care hospice will meet you at the retirement and provide comfort care in that setting. Recommend at this time that you stop the Eliquis. Coding Level of Care Code ED Clinical Care Manager for [facility]
[2022-09-16 07:26] LABS: RBC Urine TOO NUMEROUS TO CNT /hpf (0-2)
--- NOTE | 2022-09-16 07:28 | CT_ITS ---
WS: [id number] CT ABDOMEN AND PELVIS NONCONTRAST HISTORY: flank pain/hematuria TECHNIQUE: Imaging performed through the abdomen and pelvis. Coronal and sagittal reformats are submi tted. All CT scans at [facility] use at least one of these dose optimization techniques: auto mated exposure control; mA and/or kV adjustment per patient size (includes targeted exams where dose is matched to clinical indication); or iterative reconstruction. DLP: 525.08 mGy.cm COMPARISON: 07/23/2021 Lower thorax: Moderate size bilateral pleural effusions with compressive atelectasis at the lung base s. Mild heart enlargement. There is a small pericardial effusion versus pericardial thickening. Liver: Normal size liver. No mass or bile duct dilatation. Gallbladder: Normal gallbladder. Pancreas: Fatty replaced pancreas. In the region of the pancreatic head is a hypoechoic mass measurin g 2.5 x 2.9 cm. Spleen: Normal. Adrenal glands: Normal. No mass. Right kidney: Atrophy. No obstruction. Left kidney: Atrophy, no obstruction. Aorta: Atherosclerotic changes throughout the aorta. There is a soft tissue mass contiguous with the abdominal aorta below the level of the renal arteries. Mass extends posterior to the aorta. This mass measures 3.6 x 2.8 cm. There is a central hypoechoic mass measuring 2.8 x 4.2 cm and extending over a length of 5.2 cm. This mass is centered at the mesenteric root. Just medial to a similar appearing mass near the pancreatic head. GI tract: No obstruction. Appendix not well visualized. Abdominal wall: Negative. No hernia. Pelvis: Soft tissue anasarca. Enlargement and heterogeneity of the LEFT iliac is muscle consistent wi th a hematoma. Hematoma measures at least 5.3 x 6.2 cm and extends over a length of 10 cm. Hematoma e xtends to the LEFT groin. Probably secondary to prior catheterization. Osseous structures: Osteopenia. Prior LEFT hip arthroplasty. Sclerotic changes are noted within sever al of the ribs. These findings were also present on a prior study of 07/23/2021. CT/CT kidney stone [id number] IMPRESSION: 1. Acute LEFT retroperitoneal hemorrhage involving the iliacus muscle. Bleed e xtends to the LEFT groin. 2. Additional soft tissue masses at the mesenteric root and in the region of t he pancreatic head are probably lymph node groups. These were not present on th e prior examinations. Suspect mesenteric adenopathy. Etiology is not certain. P ossible pancreatic head mass and lymphoma within the differential. 3. Soft tissue mass inseparable from the abdominal aorta measures 3.6 x 2.8 cm . Lymph node likely. Aortic injury with hematoma may also be within the differe ntial as this is inseparable from a portion of the aorta. 4. Moderate-sized bilateral pleural effusions with bibasilar atelectasis. 5. Small pericardial effusion versus pericardial thickening.
[2022-09-16 07:29] LABS: Amorphous Sediment Urine 2+ /hpf; Bacteria Urine 2+ /hpf; Mucus Urine 1+ /hpf; Squamous Epithelial Cell Urine 0-4 /hpf (0-5); WBC Urine 80-100 /hpf (0-5)
[2022-09-16 07:29] LABS: Blood Urea Nitrogen 31 mg/dL (8-23); Calcium 9.4 mg/dL (8.5-10.5); Carbon Dioxide 18 mmol/L (22-29); Chloride 104 mmol/L (98-107); Glucose 141 mg/dL (65-115); Osmolality Calculated 301 mOsm/kg (285-295); Sodium 141 mmol/L (136-145)
[2022-09-16 07:30] LABS: Hyaline Casts Urine 0-4 /lpf
[2022-09-16 07:31] LABS: Add Urine Culture? Yes
[2022-09-16] MEDS: cefTRIAXone 1,000 MG in sodium chloride 0.9% (plus) 50 ML 100 MG IV (08:43)
[2022-09-16] MEDS: sodium chloride 0.9% 1,000 ML 999 ML IV (08:45)
[2022-09-16 09:29] VITALS: BP 98/42; PULSE 111; RESP 26; O2SAT 95
[2022-09-16] MEDS: LORazepam 2 mg/mL INJ 1 mL 1 MG IVP (09:36)
--- NOTE | 2022-09-16 09:58 | DCPLANNER ---
manager multimedia was asked to speak with family about hospice care. manager multimedia spoke with patients , who informed case planner that patient was residing at [facility]. Patients stated that he would like to use [facility] for hospice. manager multimedia faxed patients information to [facility] hospice. manager multimedia will follow up with hospice.
[2022-09-16 10:36] VITALS: BP 106/51; PULSE 81; RESP 22; O2SAT 90
== END 2022-09-16 10:39 | disposition home or self-care (01) ==
PROVIDERS: Emergency Provider Family Medicine; PCP Family Medicine
DX: A41.9 Sepsis, unspecified organism (principal); I26.99 Other pulmonary embolism without acute cor pulmonale; I31.39 Other pericardial effusion (noninflammatory); N30.90 Cystitis, unspecified without hematuria; R58 Hemorrhage, not elsewhere classified; S35.00XA Unspecified injury of abdominal aorta, initial encounter; I51.3 Intracardiac thrombosis, not elsewhere classified; K86.9 Disease of pancreas, unspecified; R59.1 Generalized enlarged lymph nodes; Z79.82 Long term (current) use of aspirin; Z87.891 Personal history of nicotine dependence; Z86.73 Personal history of transient ischemic attack (TIA), and cerebral infarction without residual deficits; I10 Essential (primary) hypertension; Z86.711 Personal history of pulmonary embolism; Z87.440 Personal history of urinary (tract) infections; X58.XXXA Exposure to other specified factors, initial encounter; Z99.81 Dependence on supplemental oxygen
CPT/HCPCS: 74176; 80048; 81001; 85025; 87086; 96365; 96375; 99285; J0696; J2060; J7030